=== PATIENT | female | born 2005 | race Caucasian/White ===

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

== ENCOUNTER → 2023-02-20 | Outpatient (CLI) | payer MEDICAID, SELFPAY ==
--- NOTE | 2023-02-20 09:48 | US_ITS ---
STUDY: ABDOMINAL ULTRASOUND - RIGHT UPPER QUADRANT; ELASTOGRAPHY REASON FOR VISIT: Female, 17 years old. Hepatic steatosis. TECHNIQUE: Ultrasound evaluation of the right upper quadrant was performed with real-time and static johnson-scale imaging. Point quantification shear wave elastography was performed ([employer]). TECHNICAL QUALITY: Adequate. COMPARISON: Comparison is made with prior study June 17, 2021. FINDINGS: Liver: The liver is enlarged and measures 20.6 cm. There is increased echogenicity consistent with fatty infiltration. The bile ducts are within normal limits. There is hepatic color flow. The direction of portal flow is hepatopetal. There is no demonstrated mass lesion. Median liver stiffness measured 5.0 kPa. Gallbladder: Normal distended gallbladder. The gallbladder wall measures 1.4 mm. There is a negative sonographic Garcia''s sign. There is no pericholecystic fluid. There are no gallstones. Common Bile Duct (C.B.D.): The common bile duct measures 4.0 mm. Pancreas: There is normal echogenicity of the visualized pancreas. There is no demonstrated pancreatic mass or cyst. Right Kidney: Normal size of the right kidney. The right kidney measures 13.8 cm x 5.8 cm x 3.9 cm. Normal renal cortex. The right cortex measures 1.6 cm. There is no demonstrated renal mass or cyst. There is no right hydronephrosis. US/ABD Limited w/ Elastography IMPRESSION: 1. Liver stiffness measures 5.0 kPa compatible with F0-F1 (Normal to mild liver fibrosis) Metavir score. Electronically Signed: Tay Ochoa MD at 15:26 EDT ,
== END | disposition home or self-care (01) ==
LOC: US 09:46
PROVIDERS: Referring Provider Nurse Practitioner Family; Visit Provider Nurse Practitioner Family
DX: E78.1 Pure hyperglyceridemia (principal); E78.2 Mixed hyperlipidemia; K76.0 Fatty (change of) liver, not elsewhere classified
CPT/HCPCS: 76705; 76981

== ENCOUNTER → 2023-06-07 | Outpatient (CLI) | payer MEDICAID, SELFPAY ==
--- NOTE | 2023-06-07 08:46 | US_ITS ---
STUDY: ABDOMINAL ULTRASOUND REASON FOR EXAM: Female, 17 years old. GENERALIZED ABD PAIN TECHNIQUE: Transabdominal ultrasound was performed with real-time and static johnson scale imaging. TECHNICAL QUALITY: Limited. Examination limited due to a combination of factors including obesity and bowel gas. COMPARISON: CT scan 12/05/2022, ultrasound 02/20/2023 FINDINGS: Liver: The liver measures 23.7 cm. There is increased echogenicity consistent with fatty infiltration. The bile ducts are within normal limits. There is hepatic color flow. The direction of portal flow is hepatopetal. There is no demonstrated mass lesion. Portal vein measurement: Gallbladder: Normal distended gallbladder. The gallbladder wall measures 2 mm. There is a negative sonographic Garcia''s sign. There is no pericholecystic fluid. There are no gallstones. Common Bile Duct (C.B.D.): The common bile duct measures 3 mm. Pancreas: Normal size of the head, body of the pancreas. Tail of the pancreas is suboptimally seen. There is normal echogenicity of the pancreas. There is no demonstrated pancreatic mass or cyst. Spleen: Normal size of the spleen. The spleen measures 12.6 cm. Right Kidney: Normal size of the right kidney. The right kidney measures 12.7 cm. Normal renal cortex. The right cortex measures 1.9 cm. There is no demonstrated renal mass or cyst. There is no right hydronephrosis. Left Kidney: Normal size of the left kidney. The left kidney measures 12.3 cm. Normal renal cortex. The left cortex measures 2.1 cm. There is no demonstrated renal mass or cyst. There is no left hydronephrosis. Aorta: 2.1 cm I.V.C.: The IVC is patent. There is no ascites. US/Abdomen Complete IMPRESSION: Limited as above. No acute abnormality. Fatty liver with hepatomegaly. Electronically Signed: Nael Godinez MD at 21:05 EST ,
--- OUTSIDE RECORDS SUMMARY | 2023-06-07 08:52 | XMS RPT_ITS | CCD ---
Author Name Unknown Address [id number] [place] [address] Organization [facility] Care Team Providers Care Staff Psychiatrist Name Role Phone Ruiz JAIME, Yenifer Sams Primary Care Provider Yenifer Browne MD Primary Care Provider Yenifer Browne MD Primary Care Provider YENIFER BROWNE Primary Care Unavailable ISIDORO MADRIGAL Attending Unavailable ISIDORO MADRIGAL Referring Unavailable PLAYL, YENIFER M Primary Care Unavailable ISIDORO MADRIGAL Attending Unavailable ISIDORO MADRIGAL Referring Unavailable ISIDORO MADRIGAL Admitting Unavailable PLAYL, YENIFER M Primary Care Unavailable ISIDORO MADRIGAL Attending Unavailable PLAYL, YENIFER M Primary Care Unavailable PLAYL, YENIFER M Referring Unavailable ISIDORO MADRIGAL Attending Unavailable ISIDORO MADRIGAL Referring Unavailable PLAYL, YENIFER M Primary Care Unavailable CARY NORIEGA Attending Unavailable Unavailable Primary Care Provider UnavailYenifer Yee MD Primary Care Provider ASA CARTWRIGHT Referring Unavailable SAMY, REINA Attending Unavailable PLAYL, YENIFER M Primary Care Unavailable PLAYL, YENIFER M Attending Unavailable PLAYL, YENIFER M Primary Care Unavailable SAMY, REINA Attending Unavailable ASA CARTWRIGHT Referring Unavailable PLAYL, YENIFER M Primary Care Unavailable PLAYL, YENIFER M Primary Care Unavailable PLAYL, YENIFER M Primary Care Unavailable SAMY, REINA Referring Unavailable PLAYL, YENIFER M Primary Care Unavailable SAMY, REINA Referring Unavailable PLAYL, YENIFER M Primary Care Unavailable SAMY, REINA Attending Unavailable PLAYL, YENIFER M Primary Care Unavailable SAMY, REINA Referring Unavailable PLAYL, YENIFER M Primary Care Unavailable SAMY, REINA Referring Unavailable KEN RICHARDS Referring Unavailable MICHELINE CORREA Attending Unavailable PLAYL, YENIFER M Primary Care Unavailable ASA CARTWRIGHT Attending Unavailable PLAYL, YENIFER M Attending Unavailable PLAYL, YENIFER M Primary Care Unavailable MICHELINE CORREA Attending Unavailable WESTONMICHELINE HYDE Referring Unavailable PLAYL, YENIFER M Primary Care Unavailable MICHELINE CORREA Attending Unavailable MICHELINE CORREA Referring Unavailable PLAYL, YENIFER M Primary Care Unavailable MANISHA JENNINGS MICHELINE Referring Unavailable MICHELINE CORREA Attending Unavailable PLAYL, YENIFER M Primary Care Unavailable MICHELINE CORREA Referring Unavailable WESTONMICHELINE HYDE Attending Unavailable PLAYL, YENIFER M Primary Care Unavailable PLAYL, YENIFER M Primary Care Unavailable Allergies Allergy Classification Reported Allergen(s) Allergy Type Date of Onset Reaction(s) Facility (1 source) mesalamine Drug Allergy 05-30-2023 Rash [facility] Work Phone: Medications Current Medications Medication Drug Class(es) Dates Sig (Normalized) Sig (Original) ibuprofen 800 mg oral tablet (2 sources) Nonsteroidal Anti-inflammatory Drug Start: 08-01-2022 End: 08-08-2022 take 1 tablet by mouth three times daily ibuprofen (MOTRIN) 800 mg tablet Indications: DUB (dysfunctional uterine bleeding) Take 1 tablet by mouth three times daily for 7 days. Until bleeding stops 21 tablet 0 08/01/2022 08/08/2022 Active Completed/Discontinued Medications Medication Drug Class(es) Dates Sig (Normalized) Sig (Original) acetic acid 20 mg/ml otic solution (10 sources) Start: 07-03-2022 acetic acid (VOSOL) 2 % otic solution Indications: Acute otitis externa of right ear, unspecified type Use 4 Drops in the right ear three times daily. 15 mL 0 07/03/2022 Active Problems Active Problems Problem Classification Problem Date Documented Da te Episodic/Chronic Anxiety disorders (20 sources) Anxiety; Translations: [Anxiety disorder, unspecified] Onset: 9 02-22-2019 Chronic Asthma (20 sources) Uncomplicated mild persistent asthma; Translations: [Mild persistent asthma, uncomplicated] Onset: 6 12-06-2015 Chronic Contraceptive and procreative management (3 sources) Patient encounter status; Translations: [Encounter for other general counseling and advice on contraception] Episodic Disorders of lipid metabolism (4 sources) Hypertriglyceridemia; Translations: [Pure hyperglyceridemia] 02-14-2023 Chronic Esophageal disorders (3 sources) Gastroesophageal reflux disease without esophagitis; Translations: [Gastro-esophageal reflux disease without esophagitis] Onset: 3 10-03-2022 Chronic Menstrual disorders (3 sources) Menometrorrhagia; Translations: [Excessive and frequent menstruation with irregular cycle] Onset: 3 Chronic Mood disorders (20 sources) Depressive disorder; Translations: [Depression] Onset: 9 02-22-2019 Chronic Mood disorders (1 source) Mood disorders; Translations: [Depression, unspecified depression type] Onset: 9 Nausea and vomiting (3 sources) Nausea; Translations: [Nausea] Onset: 3 10-03-2022 Episodic Noninfectious gastroenteritis (2 sources) Lymphocytic colitis; Translations: [Other and unspecified noninfectious gastroenteritis and colitis] Onset: 3 01-24-2023 Chronic Other connective tissue disease (1 source) Pelvic floor tension; Translations: [Other specified disorders of muscle] Episodic Other ear and sense organ disorders (1 source) Acute otitis externa of right ear; Translations: [Unspecified acute noninfective otitis externa, right ear] Episodic Other endocrine disorders (1 source) Polycystic ovary; Translations: [Polycystic ovarian syndrome] Chronic Other female genital disorders (1 source) Abnormal uterine and vaginal bleeding, unspecified; Translations: [Abnormal uterine bleeding (AUB)] Onset: 3 Chronic Other female genital disorders (1 source) Vaginal odor; Translations: [Other specified noninflammatory disorders of vagina] Episodic Other gastrointestinal disorders (3 sources) Diarrhea; Translations: [Diarrhea, unspecified] Onset: 3 10-03-2022 Episodic Other liver diseases (3 sources) Steatosis of liver; Translations: [Fatty (change of) liver, not elsewhere classified] 01-24-2023 Chronic Other liver diseases (1 source) Fatty (change of) liver, not elsewhere classified; Translations: [Hepatic steatosis] Onset: 3 Chronic Other lower respiratory disease (1 source) H/O: asthma; Translations: [Personal history of other diseases of the respiratory system] 01-02-2023 Episodic Other skin disorders (1 source) Discoloration of skin; Translations: [Disorder of pigmentation, unspecified] 01-24-2023 Episodic Other skin disorders (1 source) Eruption; Translations: [Rash and other nonspecific skin eruption] 05-30-2023 Episodic Other upper respiratory infections (3 sources) Acute upper respiratory infection; Translations: [Acute upper respiratory infection, unspecified] Episodic Residual codes; unclassified (1 source) Flushing; Translations: [Flushing] Episodic Viral infection (2 sources) Viral disease; Translations: [Viral infection, unspecified] Episodic Past or Other Problems Problem Classification Problem Date Documented Da te Episodic/Chronic Abdominal pain (20 sources) Abdominal pain; Translations: [Unspecified abdominal pain] Onset: 09-03-2019 09-03-2019 Episodic Lymphadenitis (2 sources) Mesenteric lymphadenitis; Translations: [Nonspecific mesenteric lymphadenitis] Onset: 01-24-2023 01-24-2023 Episodic Other connective tissue disease (20 sources) Increased muscle tone; Translations: [Other specified disorders of muscle] Onset: 07-05-2022 Episodic Other inflammatory condition of skin (20 sources) Seborrheic dermatitis; Translations: [Seborrheic dermatitis, unspecified] Onset: 08-02-2019 08-02-2019 Episodic Other lower respiratory disease (2 sources) Respiratory distress; Translations: [Acute respiratory distress] Onset: 12-11-2013 Resolved: 11-30-2020 11-30-2020 Episodic Other skin disorders (20 sources) Acne; Translations: [Acne, unspecified] Onset: 06-30-2018 06-30-2018 Episodic Other skin disorders (20 sources) Disorder of nail; Translations: [Nail disorder, unspecified] Onset: 05-30-2020 05-30-2020 Episodic Pneumonia (except that caused by tuberculosis or sexually transmitted disease) (4 sources) Community acquired pneumonia; Translations: [Pneumonia, unspecified organism] Onset: 12-11-2013 Resolved: 11-16-2019 11-16-2019 Episodic Residual codes; unclassified (1 source) Flushing; Translations: [Hot flashes] Onset: 08-01-2022 Episodic Septicemia (except in labor) (2 sources) Sepsis; Translations: [Sepsis, unspecified organism] Onset: 12-11-2013 Resolved: 11-30-2020 11-30-2020 Episodic Superficial injury; contusion (2 sources) Contusion of trunk; Translations: [Contusion of abdominal wall, initial encounter] Onset: 01-24-2023 01-24-2023 Episodic Results Test Name Value Interpretation Reference Range Facil ity Vital Signs Date Time Vital Sign Value Performing Clinician Facility 05-30-2023 09:57-0500 Body weight 97.25 kg Reina Samy [facility] Work Phone: [facility] 05-30-2023 09:57-0500 Diastolic blood pressure 60 mm[Hg] Reina Samy [facility] Work Phone: [facility] 05-30-2023 09:57-0500 Systolic blood pressure 120 mm[Hg] Reina Samy [facility] Work Phone: [facility] 01-24-2023 09:42-0400 Body weight 94.17 kg Asa Chay [facility] Work Phone: [facility] 01-24-2023 09:42-0400 Diastolic blood pressure 76 mm[Hg] Asa Chay [facility] Work Phone: [facility] 01-24-2023 09:42-0400 Heart rate 89 /min Asa Teranman [facility] Work Phone: [facility] 01-24-2023 09:42-0400 SaO2% (BldA) [Mass fraction] 99 % Asa Chay [facility] Work Phone: [facility] 01-24-2023 09:42-0400 Systolic blood pressure 112 mm[Hg] Asa Chay [facility] Work Phone: [facility] 01-02-2023 10:58-0400 Body temperature 98.6 [degF] Kendell Rico [facility] Work Phone: [facility] 01-02-2023 10:58-0400 Body weight 93.8 kg Kendell Rico [facility] Work Phone: [facility] 01-02-2023 10:58-0400 Diastolic blood pressure 80 mm[Hg] Kendell Rico [facility] Work Phone: [facility] 01-02-2023 10:58-0400 Heart rate 93 /min Kendell Rico [facility] Work Phone: [facility] 01-02-2023 10:58-0400 Respiratory rate 21 /min Kendell Rico [facility] Work Phone: [facility] 01-02-2023 10:58-0400 SaO2% (BldA) [Mass fraction] 98 % Kendell Rico [facility] Work Phone: [facility] 01-02-2023 10:58-0400 Systolic blood pressure 104 mm[Hg] Kendell King [facility] Work Phone: [facility] 11-04-2022 14:30-0400 Body temperature 97.5 [degF] Isidoro Madrigal MD Work Phone: [facility] 11-04-2022 14:30-0400 Heart rate 80 /min Isidoro Madrigal MD Work Phone: [facility] 11-04-2022 14:30-0400 Respiratory rate 17 /min Isidoro Madrigal MD Work Phone: [facility] 11-04-2022 14:30-0400 SaO2% (BldA) [Mass fraction] 96 % Isidoro Madrigal MD Work Phone: [facility] 11-04-2022 14:15-0400 Diastolic blood pressure 54 mm[Hg] Isidoro Madrigal MD Work Phone: [facility] 11-04-2022 14:15-0400 Systolic blood pressure 93 mm[Hg] Isidoro Madrigal MD Work Phone: [facility] 11-04-2022 12:33-0400 Body height 165 cm Isidoro Madrigal MD Work Phone: [facility] 11-04-2022 12:33-0400 Body mass index (BMI) [Ratio] 33.72 kg/m2 Isidoro Madrigal MD Work Phone: [facility] 11-04-2022 12:33-0400 Body weight 91.8 kg Isidoro Madrigal MD Work Phone: [facility] 08-19-2022 10:49-0400 Body weight 91.81 kg Reina Samy [facility] Work Phone: [facility] 08-19-2022 10:49-0400 Diastolic blood pressure 60 mm[Hg] Reina Ray [facility] Work Phone: [facility] 08-19-2022 10:49-0400 Systolic blood pressure 120 mm[Hg] Reina Samy [facility] Work Phone: [facility] 08-01-2022 15:00-0400 Body height 165 cm Yenifer Browne MD Work Phone: [facility] 08-01-2022 15:00-0400 Body temperature 98.01 [degF] Yenifer Browne MD Work Phone: [facility] 08-01-2022 15:00-0400 Body weight 90.81 kg Yenifer Browne MD Work Phone: [facility] 08-01-2022 15:00-0400 Heart rate 96 /min Yenifer Browne MD Work Phone: [facility] 08-01-2022 15:00-0400 Respiratory rate 18 /min Yenifer Browne MD Work Phone: [facility] 07-05-2022 10:00-0500 Diastolic blood pressure 88 mm[Hg] Micheline Weston PT Work Phone: [facility] 07-05-2022 10:00-0500 Systolic blood pressure 132 mm[Hg] Micheline Weston PT Work Phone: [facility] 07-03-2022 15:04-0500 Body temperature 98.91 [degF] María Praisler-Wood [facility] Work Phone: [facility] 07-03-2022 15:04-0500 Body weight 91.54 kg María Praisler-Wood [facility] Work Phone: [facility] 07-03-2022 15:04-0500 Diastolic blood pressure 80 mm[Hg] María Praisler-Wood [facility] Work Phone: [facility] 07-03-2022 15:04-0500 Heart rate 94 /min María Praisler-Wood [facility] Work Phone: [facility] 07-03-2022 15:04-0500 Respiratory rate 21 /min María Praisler-Wood [facility] Work Phone: [facility] 07-03-2022 15:04-0500 SaO2% (BldA) [Mass fraction] 100 % María Praisler-Wood [facility] Work Phone: [facility] 07-03-2022 15:04-0500 Systolic blood pressure 112 mm[Hg] María Praisler-Wood [facility] Work Phone: [facility] 05-14-2022 10:58-0500 Body weight 88.45 kg Ken Richards MD Work Phone: [facility] 05-14-2022 10:58-0500 Diastolic blood pressure 70 mm[Hg] Ken Richards MD Work Phone: [facility] 05-14-2022 10:58-0500 Systolic blood pressure 100 mm[Hg] Ken Richards MD Work Phone: [facility] 05-03-2022 10:17-0500 Body weight 88 kg Ken Richards MD Work Phone: [facility] 05-03-2022 10:17-0500 Diastolic blood pressure 62 mm[Hg] Ken Richards MD Work Phone: [facility] 05-03-2022 10:17-0500 Systolic blood pressure 114 mm[Hg] Ken Richards MD Work Phone: [facility] 12-03-2021 11:06-0400 Body temperature 98.1 [degF] Gautam Tristan [facility] Work Phone: [facility] 12-03-2021 11:06-0400 Body weight 91.08 kg Gautam Hudson [facility] Work Phone: [facility] 12-03-2021 11:06-0400 Diastolic blood pressure 74 mm[Hg] Gautam Pendlerene [facility] Work Phone: [facility] 12-03-2021 11:06-0400 Heart rate 85 /min Gautam Tristan [facility] Work Phone: [facility] 12-03-2021 11:06-0400 Respiratory rate 21 /min Gautammagaly Hudson [facility] Work Phone: [facility] 12-03-2021 11:06-0400 SaO2% (BldA) [Mass fraction] 98 % Gautam Hudson [facility] Work Phone: [facility] 12-03-2021 11:06-0400 Systolic blood pressure 112 mm[Hg] Gautam Hudson [facility] Work Phone: [facility] 10-26-2021 10:46-0400 Body height 165 cm Yenifer Browne MD Work Phone: [facility] 10-26-2021 10:46-0400 Body mass index (BMI) [Percentile] Per age and sex 97.14 % Yenifer Browne MD Work Phone: [facility] 10-26-2021 10:46-0400 Body temperature 97.3 [degF] Yenifer Browne MD Work Phone: [facility] 10-26-2021 10:46-0400 Body weight 91.67 kg Yeniefr Browne MD Work Phone: [facility] 10-26-2021 10:46-0400 Diastolic blood pressure 74 mm[Hg] Yenifer Browne MD Work Phone: [facility] 10-26-2021 10:46-0400 Heart rate 68 /min Yenifer Browne MD Work Phone: [facility] 10-26-2021 10:46-0400 Respiratory rate 18 /min Yenifer Browne MD Work Phone: [facility] 10-26-2021 10:46-0400 Systolic blood pressure 102 mm[Hg] Yenifer Browne MD Work Phone: [facility] 10-09-2021 11:12-0400 Body weight 92.08 kg Ken Richards MD Work Phone: [facility] 10-09-2021 11:12-0400 Diastolic blood pressure 66 mm[Hg] Ken Richards MD Work Phone: [facility] 10-09-2021 11:12-0400 Systolic blood pressure 98 mm[Hg] Ken Richards MD Work Phone: [facility] 09-23-2021 14:57-0400 Body temperature 97.9 [degF] Micheline Athy PA-C Work Phone: [facility] 09-23-2021 14:57-0400 Body weight 91.99 kg Micheline Athy PA-C Work Phone: [facility] 09-23-2021 14:57-0400 Diastolic blood pressure 60 mm[Hg] Micheline Athy PA-C Work Phone: [facility] 09-23-2021 14:57-0400 Heart rate 91 /min Micheline Athy PA-C Work Phone: [facility] 09-23-2021 14:57-0400 Respiratory rate 16 /min Micheline Athy PA-C Work Phone: [facility] 09-23-2021 14:57-0400 SaO2% (BldA) [Mass fraction] 98 % Micheline Athy PA-C Work Phone: [facility] 09-23-2021 14:57-0400 Systolic blood pressure 114 mm[Hg] Micheline Resendiz PA-C Work Phone: [facility] Encounters Encounter Date Encounter Type Care Provider Facility Start: 05-30-2023 End: 05-30-2023 ambulatory REINA SAMY Facility:[facility] Start: 05-30-2023 End: 05-30-2023 Patient encounter procedure Reina Ray [facility] Work Phone: OB/Gynecology Procedures Date Procedure Procedure Detail Performing Clinician Start: 01-02-2023 STREP A MOLECULAR (POC) [facility] Provider Start: 11-04-2022 Urine test visual color cmprsn meths Isidoro Awan DO Work Phone: Start: 10-08-2022 Ct abdomen & pelvis w/contrast material Reina Ray [facility] Work Phone: Start: 10-03-2022 OCCULT BLOOD, QUAL Velasquez rach Madrigal MD Work Phone: Start: 09-27-2022 Us abdominal real ti me w/image documentation Isidoro Madrigal Work Phone: Start: 05-20-2022 Us pelvic nonobstetr ic real-time image complete Ken Richards MD Work Phone: Start: 05-03-2022 Urnls dip stick/tabl et rgnt auto w/o microscopy Ken Richards MD Work Phone: Start: 10-26-2021 PFIZER-BIONTECH COVI D-19 VACCINE, AGE 12+ YR ([facility]) Yenifer Browne MD Work Phone: Start: 10-26-2021 Adult depression scr eening assessment Yenifer Browne MD Work Phone: Start: 11-29-2020 Adult depression scr eening assessment Yenifer Browne MD Work Phone: Plan of Treatment Date Care Activity Detail Author Start: 09-29-2024 Annual PCP Team Chronic Disease Visit Annual PCP Team Chronic Disease Visit [facility] Start: 08-02-2023 ANNUAL PCP TEAM CHRONIC DISEASE VISIT ANNUAL PCP TEAM CHRONIC DISEASE VISIT [facility] Start: 06-13-2023 ANNUAL PCP TEAM CHRONIC DISEASE VISIT ANNUAL PCP TEAM CHRONIC DISEASE VISIT [facility] Start: 05-13-2023 End: 07-13-2023 Lipid 1996 panel - Serum or Plasma LIPID PANEL BASIC Lab Routine Hypertriglyceridemia Hyperlipidemia, mixed Expected: 05/13/2023, Expires: 07/13/2023 [facility] Work Phone: Immunizations Immunization Date Immunization Notes Care Provider Fa cility 10-26-2021 COVID-19 vaccine, ag e 12+ yr ([employer] [facility]) Yenifer Browne MD Work Phone: [facility] 03-16-2020 meningococcal B vacc ine, recombinant, OMV, adjuvanted Yenifer Browne MD Work Phone: [facility] 03-16-2020 meningococcal polysaccharide (groups A, C, Y and W-135) diphtheria toxoid conjugate vaccine (MCV4P) Yenifer Browne MD Work Phone: [facility] 06-30-2018 Human Papillomavirus 9-valent vaccine Yenifer Browne MD Work Phone: [facility] 01-26-2016 Human Papillomavirus 9-valent vaccine Yenifer Browne MD Work Phone: [facility] Work Phone: 12-06-2015 Human Papillomavirus 9-valent vaccine Yenifer Browne MD Work Phone: [facility] Work Phone: 12-06-2015 meningococcal polysaccharide (groups A, C, Y and W-135) diphtheria toxoid conjugate vaccine (MCV4P) Yenifer Browne MD Work Phone: [facility] Work Phone: 12-06-2015 tetanus toxoid, redu dago diphtheria toxoid, and acellular pertussis vaccine, adsorbed Yenifer Browne MD Work Phone: [facility] Work Phone: 12-12-2009 hepatitis A vaccine, unspecified formulation Yenifer Browne MD Work Phone: [facility] 05-18-2009 diphtheria, tetanus toxoids and acellular pertussis vaccine Yenifer Browne MD Work Phone: [facility] Work Phone: 05-18-2009 measles, mumps and rubella virus vaccine Yenifer Browne MD Work Phone: [facility] Work Phone: 05-18-2009 varicella virus vaccine Ji Browne MD Work Phone: [facility] Work Phone: 02-07-2009 influenza virus vacc ine, live, attenuated, for intranasal use Yenifer Browne MD Work Phone: [facility] Work Phone: 02-07-2009 influenza virus vacc ine, unspecified formulation Asa Cartwright APRN.CNP Work Phone: [facility] 11-14-2008 diphtheria, tetanus toxoids and acellular pertussis vaccine Yenifer Browne MD Work Phone: [facility] Work Phone: 11-14-2008 hepatitis B vaccine, pediatric or pediatric/adolescent dosage Yenifer Browne MD Work Phone: [facility] Work Phone: 11-14-2008 measles, mumps and rubella virus vaccine Yenifer Browne MD Work Phone: [facility] Work Phone: 11-14-2008 poliovirus vaccine, inactivated Yenifer Browne MD Work Phone: [facility] Work Phone: 11-14-2008 varicella virus vaccine Ji Browne MD Work Phone: [facility] Work Phone: 2003 diphtheria, tetanus toxoids and acellular pertussis vaccine Yenifer Browne MD Work Phone: [facility] Work Phone: 2003 hepatitis B vaccine, pediatric or pediatric/adolescent dosage Yenifer Browne MD Work Phone: [facility] Work Phone: 2003 pneumococcal conjuga te vaccine, 7 valent Yenifer Browne MD Work Phone: [facility] Work Phone: 2003 poliovirus vaccine, inactivated Yenifer Browne MD Work Phone: [facility] Work Phone: 2003 diphtheria, tetanus toxoids and acellular pertussis vaccine Yenifer Browne MD Work Phone: [facility] Work Phone: 2003 hepatitis B vaccine, pediatric or pediatric/adolescent dosage Yenifer Browne MD Work Phone: [facility] Work Phone: 2003 pneumococcal conjuga te vaccine, 7 valent Yenifer Browne MD Work Phone: [facility] Work Phone: 2003 poliovirus vaccine, inactivated Yenifer Browne MD Work Phone: [facility] Work Phone: Payers Date Payer Category Payer Unknown [id number] 2022 [facility] [id number] 2022-Present [address] [place] [address] [id number] 2022 Unknown [id number] 2008 Medicaid [employer] [id number] 2008-Present [phone] [address] [place] [address] Medicaid [id number] 2008 Medicaid [id number] 2003 Unknown [id number] 2003 Unknown [id number] 2003 Unknown [id number] 2003 Unknown [id number] 2003 Unknown [id number] Social History Date Type Detail Facility Start: 10-09-2021 End: 12-03-2021 Tobacco smoking status NHIS Never smoked tobacco [facility] Start: 03-06-2021 End: 09-23-2021 Alcohol intake Current non-drinker of alcohol (finding) [facility] Start: 11-28-2020 History SDOH Physica l Activity DPW 4 [facility] Start: 11-28-2020 History SDOH Financial 5 [facility] Start: 11-28-2020 End: 10-24-2021 History SDOH Food Worry 1 [facility] Start: 11-28-2020 End: 10-24-2021 History SDOH Transport Med 2 [facility] Start: 12-12-2009 Tobacco Comment mother and mot her's boyfriend smoke inside [facility] Start: 2003 Sex Assigned At Female [facility] Start: 09-11-2021 End: 12-03-2021 Exposure to SARS-CoV-2 (event) Not sure [facility] Start: 10-09-2021 End: 12-03-2021 Tobacco use and exposure Smokeless tobacco non-user [facility] Start: 10-09-2021 End: 08-19-2022 Alcohol intake Current drinker of alcohol (finding) [facility] Start: 10-09-2021 History SDOH Alcohol Comment occasionally [facility] History of tobacco use Passive smoker [facility] Start: 12-25-2021 End: 11-04-2022 Alcohol intake Lifetime non-drinker (finding) [facility] Start: 12-25-2021 End: 09-11-2022 History of Social function [facility] Start: 12-25-2021 End: 09-11-2022 Tobacco use panel [facility] Start: 2003 Sex Assigned At Not on file [facility] Start: 09-11-2022 End: 05-30-2023 Alcohol intake Ex-drinker (finding) [facility] Start: 11-04-2022 Tobacco smoking stat us HIIS Smokes tobacco daily [facility] History of tobacco use Tobacco U se Types Packs/Day Years Used Date Smoking Tobacco: Every Day Vaping Passive Smoke Exposure: Yes Smokeless Tobacco: Never [facility] How hard is it for y ou to pay for the very basics like food, housing, medical care, and heating Not hard at all [facility] (I/We) worried wheyuri er (my/our) food would run out before (I/we) got money to buy more. Never true [facility] In the past 12 month s, was there a time when you were not able to pay the mortgage or rent on time? No [facility] Start: 02-08-2020 Gender identity Identifies as female gender (finding) [facility] Start: 02-08-2020 Sexual orientation Heterosexual (fin alice) [facility] Clinical Notes 12-16-2013 to 05-30-2023 Patient InstructionsReina Haywood APRN.CNP - 05/30/2023 9:54 AM ESTTelephone Encounter - Lyudmila Rizo RN - 03/06/2023 12:20 PM ESTTelephone Encounter - Trish Benjamin - 02/17/2023 3:31 PM EDT Note Date & Type Note Facility 05-30-2023 Note HNO ID: [id number] Author: REINA HAYWOOD APRN.CNP Service: ? Author Type: Nurse Practitioner Type: Progress Notes Filed: 05/30/2023 12:50 Note Text: Predictive Maintenance Technician offered: Patient declines. Edgar Nava is a 17 year old female who presents for problem visit bleeding every 2 weeks, breast lump and rash on stomach HPI: Patient states for the last several months that she has been having 2 periods a month lasting about 5 days each time. She is taking her control pill consistently. She is also concerned about a lump on the left breast that she found it has been approximately 2 months. She also has a unusual rash on her stomach, which she thinks is a reaction to a GI medication that was ordered for her. OB History T0 L0 SAB0 IAB0 Ectopic0 Multiple0 Live Births0 Osteologist History LMP: 05/15/2023 (Exact Date), Having periods Age at Menarche: Age at First : Age at Menopause: Osteologist History Comments: Sexual Activity: Not Currently; Male Contraception: Pill PAST MEDICAL HISTORY Diagnosis Date Menstrual periods, abnormal 06/2015 NEGATIVE HISTORY OF 2013 Normal Color Vision Pneumonia 11/2013 resolved Sepsis (HCC) 12/16/2013 resolved. Admitted for observation [facility] after 2 day stay PAST SURGICAL HISTORY Procedure Laterality Date PAST SURGICAL HISTORY OF teeth removed FAMILY HISTORY Problem Relation Age of Onset Blood Clots Maternal Grandmother genetic clotting disorder - aorta replaced, screens Aneurysm Maternal Grandmother Blood Clots Mother None Other Social History Tobacco Use Smoking status: Never Smokeless tobacco: Never Vaping Use Vaping Use: Some days Substances: CBD Devices: Disposable Substance Use Topics Alcohol use: Not Currently Comment: occasionally Drug use: Yes Frequency: 6.0 times per week Types: Marijuana Current Outpatient Medications Medication Sig Norgestimate-Ethinyl Estradiol (TRI-SPRINTEC) 0.18/0.215/0.25 mg-35 mcg (28) Take 1 tablet by mouth once daily. norethindrone (AYGESTIN) 5 mg tablet Take 1 tablet by mouth once daily. rosuvastatin (CRESTOR) 10 mg tablet Take 1 tablet by mouth daily at bedtime. balsalazide (COLAZAL) 750 mg capsule Take 2,250 mg by mouth. cyproheptadine (PERIACTIN) 4 mg tablet TAKE 4MG IN THE MORNING AND 8MG IN THE EVENING albuterol HFA (PROAIR HFA) 90 mcg/actuation inhaler Inhale 2 Puffs as instructed every 4 hours as needed. triamcinolone (KENALOG) 0.025 % cream Apply to affected area twice daily. hyoscyamine SR (LEVBID) 0.375 mg 12 hr tablet (Patient not taking: Reported on 05/30/2023) No current facility-administered medications for this visit. Allergies As of Date: 05/30/2023 (No Known Allergies) Fully Assessed 05/30/2023 REVIEW OF SYSTEMS Abdomen: No bloating, early satiety, indigestion, or increased flatulence. No abdominal pain, nausea, vomiting, diarrhea, or constipation. Bladder: No dysuria, gross hematuria, urinary frequency, urinary urgency, or incontinence. Breast: Breast lump(s) noted. Expanded ROS: N/A Allergies and current medication updated:Yes EXAM: Wt 214 lb 6.4 oz (97.3kg) LMP 05/15/2023 GENERAL: pleasant, female in no apparent distress HEENT: Normocephalic, atraumatic, mucus membranes moist, and no lesions DERMATOLOGY: dark reddish rash covering the abd +itchy BREAST: soft, symmetric, no dominant mass, normal nipple-areolar complex, no lymphadenopathy, no nipple discharge, and fibrocystic changes CHEST: Normal inspiratory effort ABDOMEN: soft, non-tender, and no masses NEURO: alert and oriented x3,exam grossly non-focal EXTREMITIES: normal ASSESSMENT/PLAN: 1. Irregular menstrual cycle - ICD9: 626.4, ICD10: N92.6 (primary diagnosis) - NORETHINDRONE ACETATE 1.5 MG-ETHINYL ESTRADIOL 30 MCG TABLET If irregular bleeding continue, will order an US and consider an IUD 2. Rash - ICD9: 782.1, ICD10: R21 - METHYLPREDNISOLONE 4 MG TABLETS IN A DOSE PACK Recommended that she contact her GI provider Reina Haywood APRN.CNP Medical Decision Making: Problems: Moderate: New problem with uncertain prognosis Risk: Moderate: Drug management Medical Decision Making Level: 4 - Moderate [facility] 05-30-2023 Instructions Reina Haywood APRN.CNP - 05/30/2023 10:28 AM EST Management of Benign Breast Pain / Fibrocystic Changes Decrease or avoid intake of caffeine, including coffee, teas, sodas, and chocolate. Decrease or avoid nicotine. Wear a support or sports (not underwire) bra. Take qlkb-hzm-adeazsy ibuprofen (Advil/Motrin) or other NSAIDs, such as naproxen (Aleve). Take 3 grams (3000 mg.) of evening primrose oil (available [id number]) in divided doses for 2 months. Take warm showers. Use warm compresses. documented in this encounter [facility] 05-30-2023 History of Present illness Narrative Predictive Maintenance Technician offered: Patient declines. Edgar Nava is a 17 year old female who presents for problem visit bleeding every 2 weeks, breast lump and rash on stomach HPI: Patient states for the last several months that she has been having 2 periods a month lasting about 5 days each time. She is taking her control pill consistently. She is also concerned about a lump on the left breast that she found it has been approximately 2 months. She also has a unusual rash on her stomach, which she thinks is a reaction to a GI medication that was ordered for her. OB History T0 L0 SAB0 IAB0 Ectopic0 Multiple0 Live Births0 Osteologist History LMP: 05/15/2023 (Exact Date), Having periods Age at Menarche: Age at First : Age at Menopause: Osteologist History Comments: Sexual Activity: Not Currently; Male Contraception: Pill PAST MEDICAL HISTORY Diagnosis Date Menstrual periods, abnormal 06/2015 NEGATIVE HISTORY OF 2013 Normal Color Vision Pneumonia 11/2013 resolved Sepsis (HCC) 12/16/2013 resolved. Admitted for observation [facility] after 2 day stay PAST SURGICAL HISTORY Procedure Laterality Date PAST SURGICAL HISTORY OF teeth removed FAMILY HISTORY Problem Relation Age of Onset Blood Clots Maternal Grandmother genetic clotting disorder - aorta replaced, screens Aneurysm Maternal Grandmother Blood Clots Mother None Other Social History Tobacco Use Smoking status: Never Smokeless tobacco: Never Vaping Use Vaping Use: Some days Substances: CBD Devices: Disposable Substance Use Topics Alcohol use: Not Currently Comment: occasionally Drug use: Yes Frequency: 6.0 times per week Types: Marijuana Current Outpatient Medications Medication Sig Norgestimate-Ethinyl Estradiol (TRI-SPRINTEC) 0.18/0.215/0.25 mg-35 mcg (28) Take 1 tablet by mouth once daily. norethindrone (AYGESTIN) 5 mg tablet Take 1 tablet by mouth once daily. rosuvastatin (CRESTOR) 10 mg tablet Take 1 tablet by mouth daily at bedtime. balsalazide (COLAZAL) 750 mg capsule Take 2,250 mg by mouth. cyproheptadine (PERIACTIN) 4 mg tablet TAKE 4MG IN THE MORNING AND 8MG IN THE EVENING albuterol HFA (PROAIR HFA) 90 mcg/actuation inhaler Inhale 2 Puffs as instructed every 4 hours as needed. triamcinolone (KENALOG) 0.025 % cream Apply to affected area twice daily. hyoscyamine SR (LEVBID) 0.375 mg 12 hr tablet (Patient not taking: Reported on 05/30/2023) No current facility-administered medications for this visit. Allergies As of Date: 05/30/2023 (No Known Allergies) Fully Assessed 05/30/2023 REVIEW OF SYSTEMS Abdomen: No bloating, early satiety, indigestion, or increased flatulence. No abdominal pain, nausea, vomiting, diarrhea, or constipation. Bladder: No dysuria, gross hematuria, urinary frequency, urinary urgency, or incontinence. Breast: Breast lump(s) noted. Expanded ROS: N/A Allergies and current medication updated:Yes EXAM: Wt 214 lb 6.4 oz (97.3kg) LMP 05/15/2023 GENERAL: pleasant, female in no apparent distress HEENT: Normocephalic, atraumatic, mucus membranes moist, and no lesions DERMATOLOGY: dark reddish rash covering the abd +itchy BREAST: soft, symmetric, no dominant mass, normal nipple-areolar complex, no lymphadenopathy, no nipple discharge, and fibrocystic changes CHEST: Normal inspiratory effort ABDOMEN: soft, non-tender, and no masses NEURO: alert and oriented x3,exam grossly non-focal EXTREMITIES: normal ASSESSMENT/PLAN: 1. Irregular menstrual cycle - ICD9: 626.4, ICD10: N92.6 (primary diagnosis) - NORETHINDRONE ACETATE 1.5 MG-ETHINYL ESTRADIOL 30 MCG TABLET If irregular bleeding continue, will order an US and consider an IUD 2. Rash - ICD9: 782.1, ICD10: R21 - METHYLPREDNISOLONE 4 MG TABLETS IN A DOSE PACK Recommended that she contact her GI provider Reina Haywood APRN.CCIE Medical Decision Making: Problems: Moderate: New problem with uncertain prognosis Risk: Moderate: Drug management Medical Decision Making Level: 4 - Moderate documented in this encounter [facility] 03-06-2023 Miscellaneous Notes Patient only has 2 control pill left in her pack. Needs a refill until her appointment in April. RX pending. Requested Prescriptions Pending Prescriptions Disp Refills Norgestimate-Ethinyl Estradiol (TRI-SPRINTEC) 0.18/0.215/0.25 mg-35 mcg (28) 84 tablet 0 Sig: Take 1 tablet by mouth once daily. Lyudmila Rizo RN documented in this encounter [facility] 02-26-2023 Miscellaneous Notes Noted, thank you. Asa Cartwright APRN.CCIE If sx continue or worsen consider anti coag labs, BNP and lipase and abdominal US. He doesn't believe this is the case since pt had negative workup in the past. Trish Benjamin MA Attempted to contact [facility] office and was on hold 20 mins. Will need to try again tomorrow. Trish Benjamin MA Checking to see if this has been taken care of. Amee Wren LPN Spoke with nurse at Dr. Madrigal's office and nurse will check with provider and contact office. Trish Benjamin Attempted to contact office and office Is currently closed. Will try again later. Trish Benjamin Please contact patient's outside [facility] GI specialist-Dr. Isidoro Madrigal-I believe he is through [facility]. Patient is having possible bruising to her mid abdomen just to the right of her umbilicus, although has been present for 2.5 months, so don't necessarily suspect bruising vs possible old areas of damage due to chronic heating pad use vs possible medication reaction? She is also having a sharp pain in her abdomen in the same place-in her mid abdomen, just to the right of her umbilicus. Abdominal assessment is negative. I am completing blood work. Does he feel that she should have any imaging or specific blood work? Or should possibly follow up with his office? Asa Cartwright APRN.CNP documented in this encounter [facility] 02-14-2023 Miscellaneous Notes Faxed Trish Benjamin MA Order placed. Asa Cartwright APRN.CNP Cata from [facility] Scheduling calling she received order for Vibration Controlled Transient Elastography and do do this she is also needing an order for an Ultrasound Abdomen limited please. Asking for order to be faxed to [phone]. Pending order, needs diagnosis. Patient is not scheduled for appt as yet. Please advise documented in this encounter [facility] 02-14-2023 Miscellaneous Notes Will continue to check lipid panels routinely every 3 months and plan to increase Crestor each time. Likely add Zetia at next lab check as well. Aas Cartwright APRN.LISA Pt informed, verbalized understanding. Faxed Fibroscan order to [facility]. Trish Benjamin I sent the Crestor in. I would like her to have a fibroscan to look at the extent of her fatty liver. Please assist her to schedule this. Asa Cartwright APRN.LISA Call to pt and notified her of message below. Pt agreeable to starting medication. Pt states she's been told she's had a fatty mass connected to her liver, but nothing further has been done or said or about it. Notified pt that I would route message to Provider to review and advise if further workup with imaging needs completed. Pt understood. Collette Katz Ma Please let Edgar know I received her lab results. Her total cholesterol and triglycerides are very high. If agreeable she needs to start on a medication for this such as Crestor 10mg. Should work on exercise and decreasing fat in her diet. Has she ever been worked up for her fatty liver? I know she does have a hx of significant abdominal concerns. Has she ever had a fibroscan detailing the extent of her fatty liver? We need to recheck her lipid levels again in 3 months. The following approved medication requests have been transmitted electronically. Requested Prescriptions Signed Prescriptions Disp Refills rosuvastatin (CRESTOR) 10 mg tablet 90 tablet 3 Sig: Take 1 tablet by mouth daily at bedtime. Authorizing Provider: ASA CARTWRIGHT APRN.CNP Rebekah Stutzman, APRN.CCIE documented in this encounter [facility] 01-24-2023 Note HNO ID: [id number] Author: Asa Cartwright APRN.CNP Service: ? Author Type: Nurse Practitioner Type: Progress Notes Filed: 01/24/2023 10:44 AM Note Text: Chief Complaint Patient presents with: Derm Problem: Bruising on abdomen x 2 months HPI Edgar Nava is a 17 year old female who presents here today for Above Complaints.. Today: Bruising to abdomen since mid October. Saw ED at that point and was told she was having an allergic reaction. Bruising to right abdomen just to the right of her umbilicus. Has never had this before. Is in the same area that it has been has not changed. She does feel this started after beginning new medication Colazol back in October. When walking will get a stabbing pain in her abdomen in this same area. Will use a heating pad and rest-usually lasts about 20 minutes. Happens about 3x per day. Does sleep with heating pad on stomach nightly, this helps with all her other abdominal issues. Questioning weather area of discoloration/bruising could be a burn from her heating pad, although does not recall any acute burn or injury to this area. Past medical history, appointments, medications, allergies reviewed. Previous Medical History PAST MEDICAL HISTORY Diagnosis Date Menstrual periods, abnormal 06/2015 NEGATIVE HISTORY OF 2013 Normal Color Vision Pneumonia 11/2013 resolved Sepsis (HCC) 12/16/2013 resolved. Admitted for observation [facility] after 2 day stay Previous Surgical History PAST SURGICAL HISTORY Procedure Laterality Date PAST SURGICAL HISTORY OF teeth removed Family History FAMILY HISTORY Problem Relation Age of Onset Blood Clots Maternal Grandmother genetic clotting disorder - aorta replaced, screens Aneurysm Maternal Grandmother Blood Clots Mother None Other Patient Allergies ALLERGIES No Known Allergies Current Medications Current Outpatient Medications on File Prior to Visit Medication Sig balsalazide (COLAZAL) 750 mg capsule Take 2,250 mg by mouth. hyoscyamine SR (LEVBID) 0.375 mg 12 hr tablet cyproheptadine (PERIACTIN) 4 mg tablet TAKE 4MG IN THE MORNING AND 8MG IN THE EVENING albuterol HFA (PROAIR HFA) 90 mcg/actuation inhaler Inhale 2 Puffs as instructed every 4 hours as needed. triamcinolone (KENALOG) 0.025 % cream Apply to affected area twice daily. mesalamine DR (DELZICOL) 400 mg capsule TAKE 3 CAPSULES BY MOUTH EVERY 12 HOURS (Patient not taking: Reported on 01/24/2023) baclofen 5 mg tablet Take 1 tablet by mouth four times daily as needed. (Patient not taking: Reported on 01/02/2023) Norgestimate-Ethinyl Estradiol (TRI-SPRINTEC) 0.18/0.215/0.25 mg-35 mcg (28) Take 1 tablet by mouth once daily. No current facility-administered medications on file prior to visit. Social History Social History Tobacco Use Smoking status: Never Smokeless tobacco: Never Vaping Use Vaping Use: Some days Substances: CBD Devices: Disposable Substance Use Topics Alcohol use: Not Currently Comment: occasionally Drug use: Yes Frequency: 6.0 times per week Types: Marijuana Review of Symptoms REVIEW OF SYSTEMS See HPI, otherwise negative EXAM: BP 112/76 (BP Site: Left Arm, BP Position: Sitting, BP Cuff Size: Regular Adult) Pulse 89 Wt 94.2 kg (207 lb 9.6 oz) LMP 08/24/2022 (Exact Date) SpO2 99% BMI 34.59 kg/m? General Appearance: Well appearing, alert, in no acute distress, well-hydrated, well nourished.. Skin: multiple stretch biggs to abdomen, mild bruise-like discoloration to right mid abdomen, is not painful. Lungs: Lungs clear to auscultation. No wheezing, rhonchi, rales.. Heart: RRR without murmur, gallop, or rubs. No ectopy. Abdomen: Normal abdominal exam, Abdomen soft, non-tender. Bowel sounds normal. No masses, organomegaly, See skin assessment. Health Maintenance List Pneumococcal Vaccine(1 - PCV) due on 2009 Meningococcal B Vaccine: Consider Based On Risk(2 of 2 - Risk Bexsero 2-dose series) due on 04/13/2020 Spirometry Never done Hepatitis C Screening Never done HIV Screening Never done Asthma Control Test due on 11/29/2021 Covid-19 Vaccine(4 - Pfizer series) due on 12/21/2021 Asthma Action Plan due on 07/21/2022 Influenza Vaccine(1) due on 12/27/2022 GC (Gonorrhea) Screening (18-24) due on 05/03/2023 Chlamydia Screening (18-24) due on 05/03/2023 Annual PCP Team Chronic Disease Visit due on 08/02/2023 Hepatitis B Vaccine Completed HPV Vaccine Completed Meningococcal Conjugate Vaccine Completed DTaP,Tdap,Td Vaccine Discontinued Data reviewed Previous records, office notes ASSESSMENT/PLAN: 1. Contusion of abdominal wall, initial encounter - ICD9: 922.2, ICD10: S30.1XXA (primary diagnosis) Discoloration to right mid abdomen, unsure of etiology, possibly bruising vs other possible discoloration or r/t chronic heating pad use in this area vs reaction to new medication Colazol. Will do lab work today. Consider imaging-will contact pat (more content not included)... [facility] 01-24-2023 History of Present illness Narrative Chief Complaint Patient presents with: Derm Problem: Bruising on abdomen x 2 months HPI Edgar Nava is a 17 year old female who presents here today for Above Complaints.. Today: Bruising to abdomen since mid October. Saw ED at that point and was told she was having an allergic reaction. Bruising to right abdomen just to the right of her umbilicus. Has never had this before. Is in the same area that it has been has not changed. She does feel this started after beginning new medication Colazol back in October. When walking will get a stabbing pain in her abdomen in this same area. Will use a heating pad and rest-usually lasts about 20 minutes. Happens about 3x per day. Does sleep with heating pad on stomach nightly, this helps with all her other abdominal issues. Questioning weather area of discoloration/bruising could be a burn from her heating pad, although does not recall any acute burn or injury to this area. Past medical history, appointments, medications, allergies reviewed. Previous Medical History PAST MEDICAL HISTORY Diagnosis Date Menstrual periods, abnormal 06/2015 NEGATIVE HISTORY OF 2013 Normal Color Vision Pneumonia 11/2013 resolved Sepsis (HCC) 12/16/2013 resolved. Admitted for observation [facility] after 2 day stay Previous Surgical History PAST SURGICAL HISTORY Procedure Laterality Date PAST SURGICAL HISTORY OF teeth removed Family History FAMILY HISTORY Problem Relation Age of Onset Blood Clots Maternal Grandmother genetic clotting disorder - aorta replaced, screens Aneurysm Maternal Grandmother Blood Clots Mother None Other Patient Allergies ALLERGIES No Known Allergies Current Medications Current Outpatient Medications on File Prior to Visit Medication Sig balsalazide (COLAZAL) 750 mg capsule Take 2,250 mg by mouth. hyoscyamine SR (LEVBID) 0.375 mg 12 hr tablet cyproheptadine (PERIACTIN) 4 mg tablet TAKE 4MG IN THE MORNING AND 8MG IN THE EVENING albuterol HFA (PROAIR HFA) 90 mcg/actuation inhaler Inhale 2 Puffs as instructed every 4 hours as needed. triamcinolone (KENALOG) 0.025 % cream Apply to affected area twice daily. mesalamine DR (DELZICOL) 400 mg capsule TAKE 3 CAPSULES BY MOUTH EVERY 12 HOURS (Patient not taking: Reported on 01/24/2023) baclofen 5 mg tablet Take 1 tablet by mouth four times daily as needed. (Patient not taking: Reported on 01/02/2023) Norgestimate-Ethinyl Estradiol (TRI-SPRINTEC) 0.18/0.215/0.25 mg-35 mcg (28) Take 1 tablet by mouth once daily. No current facility-administered medications on file prior to visit. Social History Social History Tobacco Use Smoking status: Never Smokeless tobacco: Never Vaping Use Vaping Use: Some days Substances: CBD Devices: Disposable Substance Use Topics Alcohol use: Not Currently Comment: occasionally Drug use: Yes Frequency: 6.0 times per week Types: Marijuana Review of Symptoms REVIEW OF SYSTEMS See HPI, otherwise negative EXAM: BP 112/76 (BP Site: Left Arm, BP Position: Sitting, BP Cuff Size: Regular Adult) Pulse 89 Wt 94.2 kg (207 lb 9.6 oz) LMP 08/24/2022 (Exact Date) SpO2 99% BMI 34.59 kg/m General Appearance: Well appearing, alert, in no acute distress, well-hydrated, well nourished.. Skin: multiple stretch biggs to abdomen, mild bruise-like discoloration to right mid abdomen, is not painful. Lungs: Lungs clear to auscultation. No wheezing, rhonchi, rales.. Heart: RRR without murmur, gallop, or rubs. No ectopy. Abdomen: Normal abdominal exam, Abdomen soft, non-tender. Bowel sounds normal. No masses, organomegaly, See skin assessment. Health Maintenance List Pneumococcal Vaccine(1 - PCV) due on 2009 Meningococcal B Vaccine: Consider Based On Risk(2 of 2 - Risk Bexsero 2-dose series) due on 04/13/2020 Spirometry Never done Hepatitis C Screening Never done HIV Screening Never done Asthma Control Test due on 11/29/2021 Covid-19 Vaccine(4 - Pfizer series) due on 12/21/2021 Asthma Action Plan due on 07/21/2022 Influenza Vaccine(1) due on 12/27/2022 GC (Gonorrhea) Screening (18-24) due on 05/03/2023 Chlamydia Screening (18-24) due on 05/03/2023 Annual PCP Team Chronic Disease Visit due on 08/02/2023 Hepatitis B Vaccine Completed HPV Vaccine Completed Meningococcal Conjugate Vaccine Completed DTaP,Tdap,Td Vaccine Discontinued Data reviewed Previous records, office notes ASSESSMENT/PLAN: 1. Contusion of abdominal wall, initial encounter - ICD9: 922.2, ICD10: S30.1XXA (primary diagnosis) Discoloration to right mid abdomen, unsure of etiology, possibly bruising vs other possible discoloration or r/t chronic heating pad use in this area vs reaction to new medication Colazol. Will do lab work today. Consider imaging-will contact patient's outside GI specialist-Dr. Isidoro Madrigal-for recommendations. - CBC + DIFF - COMP METABOLIC PANEL - C-REACTIVE PROTEIN (CRP) - SED RATE WESTERGREN - LIPID PANEL, NONFASTING - AMYLASE BLD - IRON + TIBC - FERRITIN BLD 2. Discoloration of skin - ICD9: 709.00, ICD10: L81.9 Discoloration to right mid abdomen, unsure of etiology, possibly bruising vs other possible discoloration or r/t chronic heating pad use in this area vs reaction to new medication Colazol. Will do lab work today. Consider imaging-will contact patient's outside GI specialist-Dr. Isidoro Madrigal-for recommendations. - CBC + DIFF - COMP METABOLIC PANEL - C-REACTIVE PROTEIN (CRP) - SED RATE WESTERGREN - LIPID PANEL, NONFASTING - AMYLASE BLD - IRON + TIBC - FERRITIN BLD 3. Generalized abdominal pain - ICD9: 789.07, ICD10: R10.84 Discoloration to right mid abdomen, unsure of etiology, possibly bruising vs other possible discoloration or r/t chronic heating pad use in this area vs reaction to new medication Colazol. Will do lab work today. Consider imaging-will contact patient's outside GI specialist-Dr. Isidoro Madrigal-for recommendations. - CBC + DIFF - COMP METABOLIC PANEL - C-REACTIVE PROTEIN (CRP) - SED RATE WESTERGREN - LIPID PANEL, NONFASTING - AMYLASE BLD - IRON + TIBC - FERRITIN BLD 4. 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 Will do lab work today. Consider imaging-will contact patient's outside GI specialist-Dr. Isidoro Madrigal-for recommendations. - CBC + DIFF - COMP METABOLIC PANEL - C-REACTIVE PROTEIN (CRP) - SED RATE WESTERGREN - LIPID PANEL, NONFASTING - AMYLASE BLD - IRON + TIBC - FERRITIN BLD 5. Hepatic steatosis - ICD9: 571.8, ICD10: K76.0 Discoloration to right mid abdomen, unsure of etiology, possibly bruising vs other possible discoloration or r/t chronic heating pad use in this area vs reaction to new medication Colazol. Will do lab work today. Consider imaging-will contact patient's outside GI specialist-Dr. Isidoro Madrigal-for recommendations. - CBC + DIFF - COMP METABOLIC PANEL - C-REACTIVE PROTEIN (CRP) - SED RATE WESTERGREN - LIPID PANEL, NONFASTING - AMYLASE BLD - IRON + TIBC - FERRITIN BLD 6. Lymphocytic colitis - ICD9: 558.9, ICD10: K52.832 Discoloration to right mid abdomen, unsure of etiology, possibly bruising vs other possible discoloration or r/t chronic heating pad use in this area vs reaction to new medication Colazol. Will do lab work today. Consider imaging-will contact patient's outside GI specialist-Dr. Isidoro Madrigal-for recommendations. - CBC + DIFF - COMP METABOLIC PANEL - C-REACTIVE PROTEIN (CRP) - SED RATE WESTERGREN - LIPID PANEL, NONFASTING - AMYLASE BLD - IRON + TIBC - FERRITIN BLD Asa Cartwright APRN.CCIE documented in this encounter [facility] 01-02-2023 Note HNO ID: [id number] Author: Kendell Rico APRN.CNP Service: ? Author Type: Nurse Practitioner Type: Progress Notes Filed: 01/02/2023 11:52 AM Note Text: Subjective HPI HPI Edgar Nava is a 17 year old female who presents today for CC of cough, st, fever, congestion. This started 1 day ago. Has tried otc medication for relief. Symptoms are worsened by nothing. Risk factors sick exposures at home. Denies possibility of being . nonsmoker. .Patient presents with: Cough: Sore throat, CONNELL, runny nose, fever x 1 day PAST MEDICAL HISTORY Diagnosis Date Menstrual periods, abnormal 06/2015 NEGATIVE HISTORY OF 2013 Normal Color Vision Pneumonia 11/2013 resolved Sepsis (HCC) 12/16/2013 resolved. Admitted for observation [facility] after 2 day stay PAST SURGICAL HISTORY Procedure Laterality Date PAST SURGICAL HISTORY OF teeth removed ALLERGIES Patient has no known allergies. MEDICATIONS hyoscyamine SR (LEVBID) 0.375 mg 12 hr tablet cyproheptadine (PERIACTIN) 4 mg tablet TAKE 4MG IN THE MORNING AND 8MG IN THE EVENING mesalamine DR (DELZICOL) 400 mg capsule TAKE 3 CAPSULES BY MOUTH EVERY 12 HOURS Norgestimate-Ethinyl Estradiol (TRI-SPRINTEC) 0.18/0.215/0.25 mg-35 mcg (28) Take 1 tablet by mouth once daily. triamcinolone (KENALOG) 0.025 % cream Apply to affected area twice daily. albuterol HFA (PROAIR HFA) 90 mcg/actuation inhaler Inhale 2 Puffs as instructed every 4 hours as needed. baclofen 5 mg tablet Take 1 tablet by mouth four times daily as needed. (Patient not taking: Reported on 01/02/2023) FAMILY HISTORY Problem Relation Age of Onset Blood Clots Maternal Grandmother genetic clotting disorder - aorta replaced, screens Aneurysm Maternal Grandmother Blood Clots Mother None Other Social History Tobacco Use Smoking status: Never Smokeless tobacco: Never Vaping Use Vaping Use: Some days Substances: CBD Devices: Disposable Substance Use Topics Alcohol use: Not Currently Comment: occasionally Drug use: Yes Frequency: 6.0 times per week Types: Marijuana ROS Objective Blood pressure 104/80, pulse 93, temperature 37 ?C (98.6 ?F), resp. rate 21, weight 93.8 kg (206 lb 12.8 oz), last menstrual period 08/24/2022, SpO2 98 %. Physical Exam Constitutional: General: She is not in acute distress. Appearance: She is not toxic-appearing or diaphoretic. HENT: Head: Normocephalic and atraumatic. Nose: Nose normal. Mouth/Throat: Lips: Collins. Mouth: Mucous membranes are moist. Pharynx: Oropharynx is clear. Uvula midline. Cardiovascular: Rate and Rhythm: Normal rate and regular rhythm. Heart sounds: Normal heart sounds, S1 normal and S2 normal. Pulmonary: Effort: Pulmonary effort is normal. Breath sounds: Normal breath sounds. Lymphadenopathy: Cervical: No cervical adenopathy. Right cervical: No superficial cervical adenopathy. Left cervical: No superficial cervical adenopathy. Neurological: Mental Status: She is alert and oriented to person, place, and time. Gait: Gait is intact. ASSESSMENT/PLAN: 1. URI, acute - ICD9: 465.9, ICD10: J06.9 (primary diagnosis) - Discussed viral etiology and rationale for treatment. - Symptomatic treatment with prn analgesia - Supportive care with fluids and rest - Follow up in 3-5 days if symptoms persist or sooner if worsening of symptoms - COVID AND INFLUENZA A/B NAAT, ROUTINE - ALBUTEROL SULFATE HFA 90 MCG/ACTUATION AEROSOL INHALER 2. Sore throat - ICD9: 462, ICD10: J02.9 Neg, viral - ALERE STREP A TEST (AG) 3. History of asthma - ICD9: V12.69, ICD10: Z87.09 Inhaler refilled. - ALBUTEROL SULFATE HFA 90 MCG/ACTUATION AEROSOL INHALER Kendell Rico APRN.[facility] 01-02-2023 History of Present illness Narrative Subjective HPI HPI Edgar Nava is a 17 year old female who presents today for CC of cough, st, fever, congestion. This started 1 day ago. Has tried otc medication for relief. Symptoms are worsened by nothing. Risk factors sick exposures at home. Denies possibility of being . nonsmoker. .Patient presents with: Cough: Sore throat, CONNELL, runny nose, fever x 1 day PAST MEDICAL HISTORY Diagnosis Date Menstrual periods, abnormal 06/2015 NEGATIVE HISTORY OF 2013 Normal Color Vision Pneumonia 11/2013 resolved Sepsis (HCC) 12/16/2013 resolved. Admitted for observation [facility] after 2 day stay PAST SURGICAL HISTORY Procedure Laterality Date PAST SURGICAL HISTORY OF teeth removed ALLERGIES Patient has no known allergies. MEDICATIONS hyoscyamine SR (LEVBID) 0.375 mg 12 hr tablet cyproheptadine (PERIACTIN) 4 mg tablet TAKE 4MG IN THE MORNING AND 8MG IN THE EVENING mesalamine DR (DELZICOL) 400 mg capsule TAKE 3 CAPSULES BY MOUTH EVERY 12 HOURS Norgestimate-Ethinyl Estradiol (TRI-SPRINTEC) 0.18/0.215/0.25 mg-35 mcg (28) Take 1 tablet by mouth once daily. triamcinolone (KENALOG) 0.025 % cream Apply to affected area twice daily. albuterol HFA (PROAIR HFA) 90 mcg/actuation inhaler Inhale 2 Puffs as instructed every 4 hours as needed. baclofen 5 mg tablet Take 1 tablet by mouth four times daily as needed. (Patient not taking: Reported on 01/02/2023) FAMILY HISTORY Problem Relation Age of Onset Blood Clots Maternal Grandmother genetic clotting disorder - aorta replaced, screens Aneurysm Maternal Grandmother Blood Clots Mother None Other Social History Tobacco Use Smoking status: Never Smokeless tobacco: Never Vaping Use Vaping Use: Some days Substances: CBD Devices: Disposable Substance Use Topics Alcohol use: Not Currently Comment: occasionally Drug use: Yes Frequency: 6.0 times per week Types: Marijuana ROS Objective Blood pressure 104/80, pulse 93, temperature 37 C (98.6 F), resp. rate 21, weight 93.8 kg (206 lb 12.8 oz), last menstrual period 08/24/2022, SpO2 98 %. Physical Exam Constitutional: General: She is not in acute distress. Appearance: She is not toxic-appearing or diaphoretic. HENT: Head: Normocephalic and atraumatic. Nose: Nose normal. Mouth/Throat: Lips: Collins. Mouth: Mucous membranes are moist. Pharynx: Oropharynx is clear. Uvula midline. Cardiovascular: Rate and Rhythm: Normal rate and regular rhythm. Heart sounds: Normal heart sounds, S1 normal and S2 normal. Pulmonary: Effort: Pulmonary effort is normal. Breath sounds: Normal breath sounds. Lymphadenopathy: Cervical: No cervical adenopathy. Right cervical: No superficial cervical adenopathy. Left cervical: No superficial cervical adenopathy. Neurological: Mental Status: She is alert and oriented to person, place, and time. Gait: Gait is intact. ASSESSMENT/PLAN: 1. URI, acute - ICD9: 465.9, ICD10: J06.9 (primary diagnosis) - Discussed viral etiology and rationale for treatment. - Symptomatic treatment with prn analgesia - Supportive care with fluids and rest - Follow up in 3-5 days if symptoms persist or sooner if worsening of symptoms - COVID & INFLUENZA A/B NAAT, ROUTINE - ALBUTEROL SULFATE HFA 90 MCG/ACTUATION AEROSOL INHALER 2. Sore throat - ICD9: 462, ICD10: J02.9 Neg, viral - ALERE STREP A TEST (AG) 3. History of asthma - ICD9: V12.69, ICD10: Z87.09 Inhaler refilled. - ALBUTEROL SULFATE HFA 90 MCG/ACTUATION AEROSOL INHALER Kendell Rico APRN.CCIE documented in this encounter [facility] 11-04-2022 Procedure note Patient NameEDGAR NAVA Date of Birth2005 Record [id number] Date/Time of Procedure11/04/2022 , 1:38:00 PM Referring Physician EndoscopDebbie CHAUDHRY PROCEDURE PERFORMED Colonoscopy INDICATIONS FOR EXAMINATION Generalized abdominal pain [R10.84] Nausea without vomiting [R11.0] Gastroesophageal reflux disease without esophagitis [K21.9] Diarrhea, unspecified type [R19.7] R10.84 Generalized abdominal pain R11.0 Nausea K21.9 Gastro-esophageal reflux disease without esophagitis R19.7 Diarrhea, unspecified INSTRUMENTS CF [id number] PROCEDURE TECHNIQUE A physical exam was performed. Informed consent was obtained from the patient's parents/guardian after explaining all the risks (perforation, bleeding, infection and adverse effects to the medicine), benefits and alternatives to the procedure which the patient's parents appeared to understand and so stated. The patient was connected to the monitoring devices and placed in the supine position. Continuous oxygen was provided and IV medicine administered thru an indwelling cannula. After adequate general anesthesia was achieved, a digital exam was performed and the colonoscope introduced in to the rectum and advanced under direct visualization to the terminal ileum The ascending colon, descending colon, transverse colon and terminal ileum were identified by visual landmarks. The scope was subsequently removed slowly while carefully examining the color, texture, anatomy, and integrity of the mucosa on the way out. In the rectum, the scope was retroflexed to evaluate for internal hemorrhoids and anorectal pathology. The patient was subsequently transferred to the recovery area in satisfactory condition. Bowel Prep Quality: Excellent ESTIMATED BLOOD LOSS2 ML FINDINGS Mild Irritation in the terminal ileum. Biopsy obtained, results pending. Complete hemostasis achieved. Normal in the mid ascending colon, mid descending colon and rectum. Biopsy obtained, results pending. Complete hemostasis achieved. ENDOSCOPIC DIAGNOSIS Mild Irritation in Terminal Ileum (Favors Prep Effect) Normal Colon from Cecum to Rectum RECOMMENDATIONS Pending biopsy. [facility] 11-04-2022 Miscellaneous Notes Patient NameEDGAR NAVA Date of Birth2005 Record [id number] Date/Time of Procedure11/04/2022 , 1:38:00 PM Referring Physician Bubba CHAUDHRY PROCEDURE PERFORMED Colonoscopy INDICATIONS FOR EXAMINATION Generalized abdominal pain [R10.84] Nausea without vomiting [R11.0] Gastroesophageal reflux disease without esophagitis [K21.9] Diarrhea, unspecified type [R19.7] R10.84 Generalized abdominal pain R11.0 Nausea K21.9 Gastro-esophageal reflux disease without esophagitis R19.7 Diarrhea, unspecified INSTRUMENTS CF [id number] PROCEDURE TECHNIQUE A physical exam was performed. Informed consent was obtained from the patient's parents/guardian after explaining all the risks (perforation, bleeding, infection and adverse effects to the medicine), benefits and alternatives to the procedure which the patient's parents appeared to understand and so stated. The patient was connected to the monitoring devices and placed in the supine position. Continuous oxygen was provided and IV medicine administered thru an indwelling cannula. After adequate general anesthesia was achieved, a digital exam was performed and the colonoscope introduced in to the rectum and advanced under direct visualization to the terminal ileum The ascending colon, descending colon, transverse colon and terminal ileum were identified by visual landmarks. The scope was subsequently removed slowly while carefully examining the color, texture, anatomy, and integrity of the mucosa on the way out. In the rectum, the scope was retroflexed to evaluate for internal hemorrhoids and anorectal pathology. The patient was subsequently transferred to the recovery area in satisfactory condition. Bowel Prep Quality: Excellent ESTIMATED BLOOD LOSS2 ML FINDINGS Mild Irritation in the terminal ileum. Biopsy obtained, results pending. Complete hemostasis achieved. Normal in the mid ascending colon, mid descending colon and rectum. Biopsy obtained, results pending. Complete hemostasis achieved. ENDOSCOPIC DIAGNOSIS Mild Irritation in Terminal Ileum (Favors Prep Effect) Normal Colon from Cecum to Rectum RECOMMENDATIONS Pending biopsy. Patient NameEDGAR NAVA Date of Birth2005 Record [id number] Date/Time of Procedure11/04/2022 , 1:38:00 PM Referring Physician EndoscopDebbie CHAUDHRY PROCEDURE PERFORMED EGD INDICATIONS FOR EXAMINATION Generalized abdominal pain [R10.84] Nausea without vomiting [R11.0] Gastroesophageal reflux disease without esophagitis [K21.9] Diarrhea, unspecified type [R19.7] R10.84 Generalized abdominal pain R11.0 Nausea K21.9 Gastro-esophageal reflux disease without esophagitis R19.7 Diarrhea, unspecified INSTRUMENTS GIF H190 PROCEDURE TECHNIQUE A physical exam was performed. Informed consent was obtained from the patient's parents/guardian after explaining all the risks (perforation, bleeding, infection and adverse effects to the medicine), benefits and alternatives to the procedure which the patient's parents appeared to understand and so stated. The patient was connected to the monitoring devices and placed in the supine position. Continuous oxygen was provided and IV medicine administered through a indwelling cannula. After adequate general anesthesia was achieved, the patient was intubated and the scope advanced under direct visualization to the third part of duodenum The esophagus, stomach and duodenum were identified by visual landmarks. The scope was subsequently removed slowly while carefully examining the color, texture, anatomy, and integrity of the mucosa on the way out. The patient was subsequently transferred to the recovery area in satisfactory condition. ESTIMATED BLOOD LOSS2 ML FINDINGS Normal in the distal esophagus. Biopsy obtained, results pending. Complete hemostasis achieved. Normal in the antrum and fundus. Biopsy obtained, results pending. Complete hemostasis achieved. Normal in the third part of duodenum. Biopsy obtained, results pending. Complete hemostasis achieved. ENDOSCOPIC DIAGNOSIS Normal RECOMMENDATIONS Pending biopsy. Problem: Adverse Surgical Event, Risk of Goal: Absence of injury Outcome: Ongoing documented in this encounter [facility] 11-04-2022 Procedure note Patient NameEDGAR NAVA Date of Birth2005 Record [id number] Date/Time of Procedure11/04/2022 , 1:38:00 PM Referring Physician EndoscopDebbie CHAUDHRY PROCEDURE PERFORMED EGD INDICATIONS FOR EXAMINATION Generalized abdominal pain [R10.84] Nausea without vomiting [R11.0] Gastroesophageal reflux disease without esophagitis [K21.9] Diarrhea, unspecified type [R19.7] R10.84 Generalized abdominal pain R11.0 Nausea K21.9 Gastro-esophageal reflux disease without esophagitis R19.7 Diarrhea, unspecified INSTRUMENTS GIF H190 PROCEDURE TECHNIQUE A physical exam was performed. Informed consent was obtained from the patient's parents/guardian after explaining all the risks (perforation, bleeding, infection and adverse effects to the medicine), benefits and alternatives to the procedure which the patient's parents appeared to understand and so stated. The patient was connected to the monitoring devices and placed in the supine position. Continuous oxygen was provided and IV medicine administered through a indwelling cannula. After adequate general anesthesia was achieved, the patient was intubated and the scope advanced under direct visualization to the third part of duodenum The esophagus, stomach and duodenum were identified by visual landmarks. The scope was subsequently removed slowly while carefully examining the color, texture, anatomy, and integrity of the mucosa on the way out. The patient was subsequently transferred to the recovery area in satisfactory condition. ESTIMATED BLOOD LOSS2 ML FINDINGS Normal in the distal esophagus. Biopsy obtained, results pending. Complete hemostasis achieved. Normal in the antrum and fundus. Biopsy obtained, results pending. Complete hemostasis achieved. Normal in the third part of duodenum. Biopsy obtained, results pending. Complete hemostasis achieved. ENDOSCOPIC DIAGNOSIS Normal RECOMMENDATIONS Pending biopsy. [facility] 11-04-2022 Plan of care note Problem: Adverse Surgical Event, Risk of Goal: Absence of injury Outcome: Ongoing [facility] 11-04-2022 Attending History and physical note H&P reviewed, patient examined, no changes have occured since H&P completed.. Isidoro Madrigal MD P - [phone] 11/04/2022 Source Note - Denise Katz APRN-CNP - 10/31/2022 2:00 PM EDT PRE-OP CONSULTATION This is a telemedicine video visit requested by the patient/guardian that was performed with the patient's location at home and the provider's location at office. DATE OF SERVICE: 10/31/2022 EDGE ROLLER PROVIDER: YRN Monson SURGICAL DIAGNOSIS: generalized abdominal pain, nausea without vomiting, gastroesophageal reflux disease without esophagitis, diarrhea Proposed surgery date: 11/04/2022 ([facility]) Proposed surgical procedure: endoscopy (upper and colonoscopy) with biopsies Advice/opinion was requested by Isidoro Madrigal MD for pre-surgical consultation. CHIEF COMPLAINT: diarrhea HISTORY OF PRESENT ILLNESS: Edgar Nava is a 17 y.o. female with a PMH significant for generalized abdominal pain, nausea without vomiting, gastroesophageal reflux disease without esophagitis, diarrhea, Gilbert's disease, asthma, anxiety, and depression who is being consulted via telehealth/video for perioperative evaluation. Edgar reports symptoms of abdominal pain, diarrhea, weight gain, and nausea. Her abdominal pain is intermittent and is often sharp and stabbing. It often stops her from doing daily activities about 3-4 times a day. It is worse before bowel movements. Edgar has diarrhea about 5-6 times per day. She denies blood in her stool. Patient was evaluated by GI and it was determined that she would benefit from an upper endoscopy and colonoscopy. Edgar has been otherwise at her baseline state of health and has not had any recent illnesses. The history is provided by the patient and mother and a chart review for evaluation for surgical risk factors. Past Medical History: Diagnosis Date Gastroesophageal reflux disease without esophagitis Gilbert syndrome Uncomplicated asthma Past Surgical History: Procedure Laterality Date DENTAL SURGERY removal of teeth at age 2 or 3 ESOPHAGOSCOPY N/A 12/04/2020 ENDOSCOPY (UPPER AND COLONOSCOPY) with biopsies performed by Angelika Vincent MD at [facility] [place] Past hospitalizations: no DRUG/FOOD ALLERGIES: No Known Allergies MEDICATIONS: Outpatient Encounter Medications as of 10/31/2022 Medication Sig Dispense Refill Loperamide HCl (IMMODIUM AD) 2 MG TABS tablet Take 1 Tablet (2 mg) by mouth 3 times daily as needed for Diarrhea 90 Tablet 2 norgestimate-ethinyl estradiol (ORTHO TRI-CYCLEN) 0.18/0.215/0.25 MG-35 MCG tablet Take 1 Tablet by mouth daily hyoscyamine (LEVBID) 0.375 MG CR tablet Take 1 Tablet (0.375 mg) by mouth every 12 hours 60 Tablet 2 cyproheptadine (PERIACTIN) 4 MG tablet 4mg in AM, and 8mg in PM 90 Tablet 5 montelukast (SINGULAIR) 10 MG tablet Take 1 Tablet (10 mg) by mouth daily ketoconazole (NIZORAL) 2 % SHAM shampoo Shampoo twice weekly (at least 3 days between each shampoo) for 8 weeks. Then use as needed. albuterol (PROAIR HFA;VENTOLIN HFA;PROVENTIL HFA) 108 (90 BASE) MCG/ACT inhaler Inhale 2 Puffs into the lungs every 4 hours as needed for Wheezing or Shortness of Breath. 18 g 0 [DISCONTINUED] Eluxadoline (VIBERZI) 75 MG TABS Take 1 Tablet (75 mg) by mouth every 12 hours for 90 days 60 Tablet 2 [DISCONTINUED] sertraline (ZOLOFT) 50 MG tablet Take 100 mg by mouth daily [DISCONTINUED] norethindrone (PENNY) 0.35 MG Take 0.35 mg by mouth daily (Patient not taking: No sig reported) No facility-administered encounter medications on file as of 10/31/2022. ANESTHESIA HISTORY: Difficulty with anesthesia? No Family history of difficulty with anesthesia? no Signs/symptoms of KD? no BLEEDING HISTORY: History of bleeding issues in patient? no Bleeding problems in family? Yes- mom and grandma have h/o blood clots History of anemia in patient? No Sickle Cell issues in patient or family? N/A REVIEW OF SYSTEMS: Comprehensive review of systems: History obtained from Mother, chart review, and the patient. Psychological ROS: positive for - anxiety and depression Respiratory ROS: positive for - h/o asthma- albuterol prn, ACT score 25 Gastrointestinal ROS: positive for - abdominal pain, GERD, Gilbert's disease-monitoring LFTs, diarrhea, and nausea Urinary ROS: positive for - difficulty initiating stream Osteologist ROS: positive for - dysmenorrhea A complete ROS was performed. Pertinent positives have been documented above or are in the HPI. All other systems were negative. Recent Illnesses? no History of COVID-19? no HISTORY: Noncontributory No history on file. 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 Smoking/Alcohol/Drug Use or Exposure: passive Family History Problem Relation Age of Onset Bleeding Problem Mother h/o blood clots Diabetes Mellitus II Father No known problems Sister No known problems Sister No known problems Brother Bleeding Problem Maternal Grandmother h/o blood clots Clotting Disorder Maternal Grandmother Cancer Paternal Grandmother Diabetes Paternal Grandmother Anesth Problems Neg Hx Blood Disorders Neg Hx Celiac Disease Neg Hx Colon Cancer Neg Hx Colon Polyps Neg Hx Constipation Neg Hx Crohn's Disease Neg Hx Eosinophilic Esophagitis Neg Hx Gallbladder Disease Neg Hx Gastroesophageal reflux Neg Hx Irritable Bowel Syndrome Neg Hx Kidney Disease Neg Hx Liver Disease Neg Hx Pancreatic Disease Neg Hx Stomach Ulcer(s) Neg Hx Thyroid Disease Neg Hx Ulcerative Colitis Neg Hx VITAL SIGNS: Temp and weight obtained via home equipment/family during this Telehealth visit. Completed set of vital signs to be completed on the day of this procedure. Vitals: Unable to obtain temperature today Ht Readings from Last 1 Encounters: 12/25/21 164.8 cm (60 %, Z= 0.25)* * Growth percentiles are based on CDC (Girls, 2-20 Years) data. Wt Readings from Last 1 Encounters: 10/31/22 93 kg (98 %, Z= 2.02)* * Growth percentiles are based on CDC (Girls, 2-20 Years) data. No height and weight on file for this encounter. SpO2 Readings from Last 3 Encounters: 12/04/20 98% 12/13/13 94% PHYSICAL EXAM: Focused provider physical to be completed on the day of this procedure General: Patient appears alert, oriented appropriately for age and in no acute distress Head: atraumatic Neuro: alert, oriented appropriately for age Eyes: sclera and conjunctiva clear Ears: external ears normal Nose: nares patent without discharge Dentition: intact, chipped tooth to right upper and bottom molars Throat: oropharynx is clear without tonsillar inflammation or exudate Neck: there is full range of motion Chest: respirations appear even and unlabored Cardiac: deferred Abdomen: deferred Back: deferred : deferred Skin: appropriate for race, no cyanosis Lymphatic: deferred Musculoskeletal: moves all extremities DIAGNOSTIC STUDIES REVIEWED: The following lab results have been ordered/reviewed. HCG ordered for day of procedure Calcium Date Value Ref Range Status 09/20/2022 10.1 7.6 - 11.0 mg/dL Final Carbon Dioxide Date Value Ref Range Status 09/20/2022 18.3 (L) 22.0 - 29.0 mmol/L Final Chloride Date Value Ref Range Status 09/20/2022 101 96 - 108 mmol/L Final Creatinine Date Value Ref Range Status 09/20/2022 0.61 0.50 - 1.00 mg/dL Final Glucose Date Value Ref Range Status 09/20/2022 97 70 - 99 mg/dL Final Comment: Criteria for Diagnosis of Diabetes: Fasting Specimen (no caloric intake for at least 8 hours): <100 mg/dL Normal 100-125 mg/dL Increased risk for Diabetes >125 mg/dL Diagnostic for Diabetes Random Glucose (any time of day without regard to last meal): > or = 200 mg/dL plus Classic Symptoms of Diabetes Potassium Date Value Ref Range Status 09/20/2022 4.1 3.3 - 5.1 mmol/L Final Sodium Date Value Ref Range Status 09/20/2022 134 133 - 145 mmol/L Final BUN Date Value Ref Range Status 09/20/2022 9 4 - 19 mg/dL Final RBC Date Value Ref Range Status 09/20/2022 4.65 4.00 - 4.90 10E12/L Final RDW Date Value Ref Range Status 09/20/2022 12.3 0.0 - 14.4 % Final WBC Date Value Ref Range Status 09/20/2022 7.8 4.5 - 11.0 10E9/L Final Hematocrit Date Value Ref Range Status 09/20/2022 42.2 36.0 - 44.0 % Final Hemoglobin Date Value Ref Range Status 09/20/2022 14.5 12.0 - 15.0 g/dl Final MCH Date Value Ref Range Status 09/20/2022 31.2 26.0 - 34.0 pg Final MCHC Date Value Ref Range Status 09/20/2022 34.4 31.0 - 37.0 % Final MCV Date Value Ref Range Status 09/20/2022 90.8 80.0 - 100.0 fl Final MPV Date Value Ref Range Status 09/20/2022 11.1 fl Final Comment: MPV is platelet range and age dependent Hemoglobin Date Value Ref Range Status 09/20/2022 14.5 12.0 - 15.0 g/dl Final No results found for: APTT , INR No results found for: TSH , W9BFEXP , V8EAGFO , THYROIDAB No results found for: HCGUR No results found for: HCGSERUM ASSESSMENT: Patient Active Problem List Diagnosis Generalized abdominal pain Acne Anxiety Depression Mild persistent asthma without complication Nausea without vomiting Gastroesophageal reflux disease without esophagitis Diarrhea Edgar Nava is a 17 y.o. female with generalized abdominal pain, nausea without vomiting, gastroesophageal reflux disease without esophagitis, diarrhea, Gilbert's disease, asthma, anxiety, and depression. Based on this evaluation for surgical risk factors and review of necessary clinical studies (if indicated), she has no other past medical history or past surgical history that would impact this procedure. [facility] physical examination limited due to telehealth via video encounter. Pertinent and/or unperformed aspects of physical exam due to these limitations will be performed and/or addended by attending provider/anesthesia on day of surgery. Family instructed to contact the surgery center/PSH if any changes occur since this evaluation. PLAN: Surgery as scheduled Patient/family education Hemodynamic monitoring Respiratory monitoring Neurological monitoring Neurovascular monitoring -No contraindication to surgery based off history and physical exam. -HCG ordered for day of procedure -Instructed family to use prescribed inhalers as directed prior to surgery (use night prior and bring inhaler the morning of surgery; taking one dose prior to procedure) as prophylactic therapy prior to undergoing anesthesia. (ACT score 25) -Educated family that if patient develops viral illness, fever, requires unexpected breathing treatments or antibiotics or any other changes prior to surgery to notify the surgery center. -Educated family to stop all herbals/multivitamins/ibuprofen products at least 2 weeks prior to surgery. -Remove all piercings and nail zimbabwean/acrylics on the day of surgery Care coordination: Yenifer Browne MD(PCP) OTHER FINDINGS OR COMMENTS: Cc: MD Denise Tello APRN-CNP 10/31/2022 2:21 PM This visit was conducted via telehealth. I spent 40 minutes with patient/family and performing chart review for this consult. Counseling and/or coordination of care was greater than 50% of the total time spent on the encounter. [facility] 11-04-2022 History and physical note H&P reviewed, patient examined, no changes have occured since H&P completed.. Isidoro Madrigal MD p - [phone] 11/04/2022 Source Note - Denise Katz APRN-CNP - 10/31/2022 2:00 PM EDT PRE-OP CONSULTATION This is a telemedicine video visit requested by the patient/guardian that was performed with the patient's location at home and the provider's location at office. DATE OF SERVICE: 10/31/2022 EDGE ROLLER PROVIDER: YRN Monson SURGICAL DIAGNOSIS: generalized abdominal pain, nausea without vomiting, gastroesophageal reflux disease without esophagitis, diarrhea Proposed surgery date: 11/04/2022 [place] [place] Proposed surgical procedure: endoscopy (upper and colonoscopy) with biopsies Advice/opinion was requested by Isidoro Madrigal MD for pre-surgical consultation. CHIEF COMPLAINT: diarrhea HISTORY OF PRESENT ILLNESS: Edgar Nava is a 17 y.o. female with a PMH significant for generalized abdominal pain, nausea without vomiting, gastroesophageal reflux disease without esophagitis, diarrhea, Gilbert's disease, asthma, anxiety, and depression who is being consulted via telehealth/video for perioperative evaluation. Edgar reports symptoms of abdominal pain, diarrhea, weight gain, and nausea. Her abdominal pain is intermittent and is often sharp and stabbing. It often stops her from doing daily activities about 3-4 times a day. It is worse before bowel movements. Edgar has diarrhea about 5-6 times per day. She denies blood in her stool. Patient was evaluated by GI and it was determined that she would benefit from an upper endoscopy and colonoscopy. Edgar has been otherwise at her baseline state of health and has not had any recent illnesses. The history is provided by the patient and mother and a chart review for evaluation for surgical risk factors. Past Medical History: Diagnosis Date Gastroesophageal reflux disease without esophagitis Gilbert syndrome Uncomplicated asthma Past Surgical History: Procedure Laterality Date DENTAL SURGERY removal of teeth at age 2 or 3 ESOPHAGOSCOPY N/A 12/04/2020 ENDOSCOPY (UPPER AND COLONOSCOPY) with biopsies performed by Angelika Vincent MD at [facility] [place] Past hospitalizations: no DRUG/FOOD ALLERGIES: No Known Allergies MEDICATIONS: Outpatient Encounter Medications as of 10/31/2022 Medication Sig Dispense Refill Loperamide HCl (IMMODIUM AD) 2 MG TABS tablet Take 1 Tablet (2 mg) by mouth 3 times daily as needed for Diarrhea 90 Tablet 2 norgestimate-ethinyl estradiol (ORTHO TRI-CYCLEN) 0.18/0.215/0.25 MG-35 MCG tablet Take 1 Tablet by mouth daily hyoscyamine (LEVBID) 0.375 MG CR tablet Take 1 Tablet (0.375 mg) by mouth every 12 hours 60 Tablet 2 cyproheptadine (PERIACTIN) 4 MG tablet 4mg in AM, and 8mg in PM 90 Tablet 5 montelukast (SINGULAIR) 10 MG tablet Take 1 Tablet (10 mg) by mouth daily ketoconazole (NIZORAL) 2 % SHAM shampoo Shampoo twice weekly (at least 3 days between each shampoo) for 8 weeks. Then use as needed. albuterol (PROAIR HFA;VENTOLIN HFA;PROVENTIL HFA) 108 (90 BASE) MCG/ACT inhaler Inhale 2 Puffs into the lungs every 4 hours as needed for Wheezing or Shortness of Breath. 18 g 0 [DISCONTINUED] Eluxadoline (VIBERZI) 75 MG TABS Take 1 Tablet (75 mg) by mouth every 12 hours for 90 days 60 Tablet 2 [DISCONTINUED] sertraline (ZOLOFT) 50 MG tablet Take 100 mg by mouth daily [DISCONTINUED] norethindrone (PENNY) 0.35 MG Take 0.35 mg by mouth daily (Patient not taking: No sig reported) No facility-administered encounter medications on file as of 10/31/2022. ANESTHESIA HISTORY: Difficulty with anesthesia? No Family history of difficulty with anesthesia? no Signs/symptoms of KD? no BLEEDING HISTORY: History of bleeding issues in patient? no Bleeding problems in family? Yes- mom and grandma have h/o blood clots History of anemia in patient? No Sickle Cell issues in patient or family? N/A REVIEW OF SYSTEMS: Comprehensive review of systems: History obtained from Mother, chart review, and the patient. Psychological ROS: positive for - anxiety and depression Respiratory ROS: positive for - h/o asthma- albuterol prn, ACT score 25 Gastrointestinal ROS: positive for - abdominal pain, GERD, Gilbert's disease-monitoring LFTs, diarrhea, and nausea Urinary ROS: positive for - difficulty initiating stream Osteologist ROS: positive for - dysmenorrhea A complete ROS was performed. Pertinent positives have been documented above or are in the HPI. All other systems were negative. Recent Illnesses? no History of COVID-19? no HISTORY: Noncontributory No history on file. 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 Smoking/Alcohol/Drug Use or Exposure: passive Family History Problem Relation Age of Onset Bleeding Problem Mother h/o blood clots Diabetes Mellitus II Father No known problems Sister No known problems Sister No known problems Brother Bleeding Problem Maternal Grandmother h/o blood clots Clotting Disorder Maternal Grandmother Cancer Paternal Grandmother Diabetes Paternal Grandmother Anesth Problems Neg Hx Blood Disorders Neg Hx Celiac Disease Neg Hx Colon Cancer Neg Hx Colon Polyps Neg Hx Constipation Neg Hx Crohn's Disease Neg Hx Eosinophilic Esophagitis Neg Hx Gallbladder Disease Neg Hx Gastroesophageal reflux Neg Hx Irritable Bowel Syndrome Neg Hx Kidney Disease Neg Hx Liver Disease Neg Hx Pancreatic Disease Neg Hx Stomach Ulcer(s) Neg Hx Thyroid Disease Neg Hx Ulcerative Colitis Neg Hx VITAL SIGNS: Temp and weight obtained via home equipment/family during this Telehealth visit. Completed set of vital signs to be completed on the day of this procedure. Vitals: Unable to obtain temperature today Ht Readings from Last 1 Encounters: 12/25/21 164.8 cm (60 %, Z= 0.25)* * Growth percentiles are based on CDC (Girls, 2-20 Years) data. Wt Readings from Last 1 Encounters: 10/31/22 93 kg (98 %, Z= 2.02)* * Growth percentiles are based on CDC (Girls, 2-20 Years) data. No height and weight on file for this encounter. SpO2 Readings from Last 3 Encounters: 12/04/20 98% 12/13/13 94% PHYSICAL EXAM: Focused provider physical to be completed on the day of this procedure General: Patient appears alert, oriented appropriately for age and in no acute distress Head: atraumatic Neuro: alert, oriented appropriately for age Eyes: sclera and conjunctiva clear Ears: external ears normal Nose: nares patent without discharge Dentition: intact, chipped tooth to right upper and bottom molars Throat: oropharynx is clear without tonsillar inflammation or exudate Neck: there is full range of motion Chest: respirations appear even and unlabored Cardiac: deferred Abdomen: deferred Back: deferred : deferred Skin: appropriate for race, no cyanosis Lymphatic: deferred Musculoskeletal: moves all extremities DIAGNOSTIC STUDIES REVIEWED: The following lab results have been ordered/reviewed. HCG ordered for day of procedure Calcium Date Value Ref Range Status 09/20/2022 10.1 7.6 - 11.0 mg/dL Final Carbon Dioxide Date Value Ref Range Status 09/20/2022 18.3 (L) 22.0 - 29.0 mmol/L Final Chloride Date Value Ref Range Status 09/20/2022 101 96 - 108 mmol/L Final Creatinine Date Value Ref Range Status 09/20/2022 0.61 0.50 - 1.00 mg/dL Final Glucose Date Value Ref Range Status 09/20/2022 97 70 - 99 mg/dL Final Comment: Criteria for Diagnosis of Diabetes: Fasting Specimen (no caloric intake for at least 8 hours): <100 mg/dL Normal 100-125 mg/dL Increased risk for Diabetes >125 mg/dL Diagnostic for Diabetes Random Glucose (any time of day without regard to last meal): > or = 200 mg/dL plus Classic Symptoms of Diabetes Potassium Date Value Ref Range Status 09/20/2022 4.1 3.3 - 5.1 mmol/L Final Sodium Date Value Ref Range Status 09/20/2022 134 133 - 145 mmol/L Final BUN Date Value Ref Range Status 09/20/2022 9 4 - 19 mg/dL Final RBC Date Value Ref Range Status 09/20/2022 4.65 4.00 - 4.90 10E12/L Final RDW Date Value Ref Range Status 09/20/2022 12.3 0.0 - 14.4 % Final WBC Date Value Ref Range Status 09/20/2022 7.8 4.5 - 11.0 10E9/L Final Hematocrit Date Value Ref Range Status 09/20/2022 42.2 36.0 - 44.0 % Final Hemoglobin Date Value Ref Range Status 09/20/2022 14.5 12.0 - 15.0 g/dl Final MCH Date Value Ref Range Status 09/20/2022 31.2 26.0 - 34.0 pg Final MCHC Date Value Ref Range Status 09/20/2022 34.4 31.0 - 37.0 % Final MCV Date Value Ref Range Status 09/20/2022 90.8 80.0 - 100.0 fl Final MPV Date Value Ref Range Status 09/20/2022 11.1 fl Final Comment: MPV is platelet range and age dependent Hemoglobin Date Value Ref Range Status 09/20/2022 14.5 12.0 - 15.0 g/dl Final No results found for: APTT , INR No results found for: TSH , E6IGOHH , G6LSGET , THYROIDAB No results found for: HCGUR No results found for: HCGSERUM ASSESSMENT: Patient Active Problem List Diagnosis Generalized abdominal pain Acne Anxiety Depression Mild persistent asthma without complication Nausea without vomiting Gastroesophageal reflux disease without esophagitis Diarrhea Edgar Nava is a 17 y.o. female with generalized abdominal pain, nausea without vomiting, gastroesophageal reflux disease without esophagitis, diarrhea, Gilbert's disease, asthma, anxiety, and depression. Based on this evaluation for surgical risk factors and review of necessary clinical studies (if indicated), she has no other past medical history or past surgical history that would impact this procedure. [facility] physical examination limited due to telehealth via video encounter. Pertinent and/or unperformed aspects of physical exam due to these limitations will be performed and/or addended by attending provider/anesthesia on day of surgery. Family instructed to contact the surgery center/PS if any changes occur since this evaluation. PLAN: Surgery as scheduled Patient/family education Hemodynamic monitoring Respiratory monitoring Neurological monitoring Neurovascular monitoring -No contraindication to surgery based off history and physical exam. -HCG ordered for day of procedure -Instructed family to use prescribed inhalers as directed prior to surgery (use night prior and bring inhaler the morning of surgery; taking one dose prior to procedure) as prophylactic therapy prior to undergoing anesthesia. (ACT score 25) -Educated family that if patient develops viral illness, fever, requires unexpected breathing treatments or antibiotics or any other changes prior to surgery to notify the surgery center. -Educated family to stop all herbals/multivitamins/ibuprofen products at least 2 weeks prior to surgery. -Remove all piercings and nail zimbabwean/acrylics on the day of surgery Care coordination: Yenifer Browne MD(PCP) OTHER FINDINGS OR COMMENTS: Cc: MD Denise Tello APRN-CNP 10/31/2022 2:21 PM This visit was conducted via telehealth. I spent 40 minutes with patient/family and performing chart review for this consult. Counseling and/or coordination of care was greater than 50% of the total time spent on the encounter. documented in this encounter [facility] 10-31-2022 Note PRE-OP CONSULTATION This is a telemedicine video visit requested by the patient/guardian that was performed with the patient's location at home and the provider's location at office. DATE OF SERVICE: 10/31/2022 EDGE ROLLER PROVIDER: YRN Monson SURGICAL DIAGNOSIS: generalized abdominal pain, nausea without vomiting, gastroesophageal reflux disease without esophagitis, diarrhea Proposed surgery date: 11/04/2022 ([facility]) Proposed surgical procedure: endoscopy (upper and colonoscopy) with biopsies Advice/opinion was requested by Isidoro Madrigal MD for pre-surgical consultation. CHIEF COMPLAINT: diarrhea HISTORY OF PRESENT ILLNESS: Edgar Nava is a 17 y.o. female with a PMH significant for generalized abdominal pain, nausea without vomiting, gastroesophageal reflux disease without esophagitis, diarrhea, Gilbert's disease, asthma, anxiety, and depression who is being consulted via telehealth/video for perioperative evaluation. Edgar reports symptoms of abdominal pain, diarrhea, weight gain, and nausea. Her abdominal pain is intermittent and is often sharp and stabbing. It often stops her from doing daily activities about 3-4 times a day. It is worse before bowel movements. Edgar has diarrhea about 5-6 times per day. She denies blood in her stool. Patient was evaluated by GI and it was determined that she would benefit from an upper endoscopy and colonoscopy. Edgar has been otherwise at her baseline state of health and has not had any recent illnesses. The history is provided by the patient and mother and a chart review for evaluation for surgical risk factors. Past Medical History: Diagnosis Date Gastroesophageal reflux disease without esophagitis Gilbert syndrome Uncomplicated asthma Past Surgical History: Procedure Laterality Date DENTAL SURGERY removal of teeth at age 2 or 3 ESOPHAGOSCOPY N/A 12/04/2020 ENDOSCOPY (UPPER AND COLONOSCOPY) with biopsies performed by Angelika Vincent MD at [facility] OR Past hospitalizations: no DRUG/FOOD ALLERGIES: No Known Allergies MEDICATIONS: Outpatient Encounter Medications as of 10/31/2022 Medication Sig Dispense Refill Loperamide HCl (IMMODIUM AD) 2 MG TABS tablet Take 1 Tablet (2 mg) by mouth 3 times daily as needed for Diarrhea 90 Tablet 2 norgestimate-ethinyl estradiol (ORTHO TRI-CYCLEN) 0.18/0.215/0.25 MG-35 MCG tablet Take 1 Tablet by mouth daily hyoscyamine (LEVBID) 0.375 MG CR tablet Take 1 Tablet (0.375 mg) by mouth every 12 hours 60 Tablet 2 cyproheptadine (PERIACTIN) 4 MG tablet 4mg in AM, and 8mg in PM 90 Tablet 5 montelukast (SINGULAIR) 10 MG tablet Take 1 Tablet (10 mg) by mouth daily ketoconazole (NIZORAL) 2 % SHAM shampoo Shampoo twice weekly (at least 3 days between each shampoo) for 8 weeks. Then use as needed. albuterol (PROAIR HFA;VENTOLIN HFA;PROVENTIL HFA) 108 (90 BASE) MCG/ACT inhaler Inhale 2 Puffs into the lungs every 4 hours as needed for Wheezing or Shortness of Breath. 18 g 0 [DISCONTINUED] Eluxadoline (VIBERZI) 75 MG TABS Take 1 Tablet (75 mg) by mouth every 12 hours for 90 days 60 Tablet 2 [DISCONTINUED] sertraline (ZOLOFT) 50 MG tablet Take 100 mg by mouth daily [DISCONTINUED] norethindrone (PENNY) 0.35 MG Take 0.35 mg by mouth daily (Patient not taking: No sig reported) No facility-administered encounter medications on file as of 10/31/2022. ANESTHESIA HISTORY: Difficulty with anesthesia? No Family history of difficulty with anesthesia? no Signs/symptoms of KD? no BLEEDING HISTORY: History of bleeding issues in patient? no Bleeding problems in family? Yes- mom and grandma have h/o blood clots History of anemia in patient? No Sickle Cell issues in patient or family? N/A REVIEW OF SYSTEMS: Comprehensive review of systems: History obtained from Mother, chart review, and the patient. Psychological ROS: positive for - anxiety and depression Respiratory ROS: positive for - h/o asthma- albuterol prn, ACT score 25 Gastrointestinal ROS: positive for - abdominal pain, GERD, Gilbert's disease-monitoring LFTs, diarrhea, and nausea Urinary ROS: positive for - difficulty initiating stream Osteologist ROS: positive for - dysmenorrhea A complete ROS was performed. Pertinent positives have been documented above or are in the HPI. All other systems were negative. Recent Illnesses? no History of COVID-19? no HISTORY: Noncontributory No history on file. 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 [facility] 10-25-2022 Miscellaneous Notes Please see pt's [email or web address] message and advise. Brenda Mckeon LPN documented in this encounter [facility] 10-08-2022 Note HNO ID: [id number] Author: RT Teodora(R) Service: ? Author Type: Academic Affairs Specialist Type: Progress Notes Filed: 10/08/2022 3:37 PM Note Text: Radiology Service Progress Note DATE OF SERVICE: October 08, 2022 TIME: 3:37 PM PATIENT IDENTITY VERIFICATION COMPLETED USING TWO (2) STANDARD IDENTIFIERS: Name and Date of confirmed by patient verbally. FALL SCREENING: Has the patient had 2 falls in the last year or 1 fall with injury or currently using an Ambulatory Assistive Device (Walker, Cane, Wheelchair, Crutches, etc.)? No PATIENT GENDER DATA: Female. status: : No status: NO. PATIENT RELEVANT IMPLANT DATA REVIEWED: Yes ALLERGIES: Reviewed and unchanged CONTRAST ALLERGY: NO. EXAM: CT -CONTRAST INDUCED NEPHROPATHY RISK FACTORS: Not applicable CREATININE: Creatinine Date Value Ref Range Status 09/11/2022 0.73 0.58 - 0.96 mg/dL Final 03/08/2020 Test sent to [facility]. 0.58 - 0.96 mg/dL Final Comment: Account Credited HIDE Estimated Glomerular Filtration Rate Date Value Ref Range Status 09/11/2022 122 >=60 mL/min/1.73m? Final Comment: Estimated Glomerular Filtration Rate (eGFR) is calculated using the 2020 CKD-EPI creatinine equation. This equation utilizes serum creatinine, sex, and age as parameters. The creatinine assay has traceable calibration to isotope dilution-mass spectrometry. Refer to KDIGO guidelines for clinical interpretation. In patients with unstable renal function, e.g. those with acute kidney injury, the eGFR may not accurately reflect actual GFR. eGFR- Date Value Ref Range Status 03/08/2020 Test sent to [facility]. Final Comment: Account Credited HIDE Tiny RESULTS: POC done: Yes, See Lab Tab October 08, 2022 TREATMENT: N/A PERIPHERAL IV DATA: Ambulatory: A peripheral IV was started in the Right forearm with a Angio cath: 22 gauge. RADIOLOGY DEPARTMENT: CT; Exam(s) Completed: Abdomen/Pelvis SIGNATURE: RT Teresa(R) PATIENT NAME: Edgar Nava DATE: October 08, 2022 TIME: 3:37 PM [facility] 10-08-2022 History of Present illness Narrative Radiology Service Progress Note DATE OF SERVICE: October 08, 2022 TIME: 3:37 PM PATIENT IDENTITY VERIFICATION COMPLETED USING TWO (2) STANDARD IDENTIFIERS: Name and Date of confirmed by patient verbally. FALL SCREENING: Has the patient had 2 falls in the last year or 1 fall with injury or currently using an Ambulatory Assistive Device (Walker, Cane, Wheelchair, Crutches, etc.)? No PATIENT GENDER DATA: Female. status: : No status: NO. PATIENT RELEVANT IMPLANT DATA REVIEWED: Yes ALLERGIES: Reviewed and unchanged CONTRAST ALLERGY: NO. EXAM: CT -CONTRAST INDUCED NEPHROPATHY RISK FACTORS: Not applicable CREATININE: Creatinine Date Value Ref Range Status 09/11/2022 0.73 0.58 - 0.96 mg/dL Final 03/08/2020 Test sent to [facility]. 0.58 - 0.96 mg/dL Final Comment: Account Credited HIDE Estimated Glomerular Filtration Rate Date Value Ref Range Status 09/11/2022 122 >=60 mL/min/1.73m Final Comment: Estimated Glomerular Filtration Rate (eGFR) is calculated using the 2020 CKD-EPI creatinine equation. This equation utilizes serum creatinine, sex, and age as parameters. The creatinine assay has traceable calibration to isotope dilution-mass spectrometry. Refer to KDIGO guidelines for clinical interpretation. In patients with unstable renal function, e.g. those with acute kidney injury, the eGFR may not accurately reflect actual GFR. eGFR- Date Value Ref Range Status 03/08/2020 Test sent to [facility]. Final Comment: Account Credited GALE Tiny RESULTS: POC done: Yes, See Lab Tab October 08, 2022 TREATMENT: N/A PERIPHERAL IV DATA: Ambulatory: A peripheral IV was started in the Right forearm with a Angio cath: 22 gauge. RADIOLOGY DEPARTMENT: CT; Exam(s) Completed: Abdomen/Pelvis SIGNATURE: RT Teresa(R) PATIENT NAME: Edgar Nava DATE: October 08, 2022 TIME: 3:37 PM documented in this encounter [facility] 09-27-2022 Note HNO ID: [id number] Author: SAI Bose) Service: ? Author Type: Technologist Type: Progress Notes Filed: 09/27/2022 9:04 AM Note Text: Radiology Service Progress Note PATIENT NAME: Edgar Nava DATE OF SERVICE: September 27, 2022 TIME: 9:03 AM PATIENT IDENTITY VERIFICATION COMPLETED USING TWO (2) IDENTIFIERS: Name and Date of confirmed by patient verbally. FALL SCREENING: Has the patient had 2 falls in the last year or 1 fall with injury or currently using an Ambulatory Assistive Device (Walker, Cane, Wheelchair, Crutches, etc.)? No PATIENT GENDER DATA: Female. status: : No status: NO. PATIENT RELEVANT IMPLANT DATA REVIEWED: Not Applicable RADIOLOGY DEPARTMENT: General X-ray: Exam(s) Completed: Abdomen X-Ray: Abdomen, SUPINE PERIPHERAL IV DATA: Not applicable SIGNED BY: RT Juice(R) September 27, 2022 9:03 AM [facility] 09-27-2022 Note HNO ID: [id number] Author: Wendy Edge RDMS Service: ? Author Type: Solid Propellant Processor Type: Progress Notes Filed: 09/27/2022 8:36 AM Note Text: Radiology Service Progress Note PATIENT NAME: Edgar Nava DATE OF SERVICE: September 27, 2022 TIME: 8:36 AM PATIENT IDENTITY VERIFICATION COMPLETED USING TWO (2) IDENTIFIERS: Name and Date of confirmed by patient verbally. FALL SCREENING: Has the patient had 2 falls in the last year or 1 fall with injury or currently using an Ambulatory Assistive Device (Walker, Cane, Wheelchair, Crutches, etc.)? No PATIENT GENDER DATA: Female. status: : No status: NO. PATIENT RELEVANT IMPLANT DATA REVIEWED: Not Applicable RADIOLOGY DEPARTMENT: Ultrasound PERIPHERAL IV DATA: Not applicable SIGNED BY: Wendy Edge RDMS RVT September 27, 2022 8:36 AM [facility] 09-27-2022 History of Present illness Narrative Radiology Service Progress Note PATIENT NAME: Edgar Nava DATE OF SERVICE: September 27, 2022 TIME: 8:36 AM PATIENT IDENTITY VERIFICATION COMPLETED USING TWO (2) IDENTIFIERS: Name and Date of confirmed by patient verbally. FALL SCREENING: Has the patient had 2 falls in the last year or 1 fall with injury or currently using an Ambulatory Assistive Device (Walker, Cane, Wheelchair, Crutches, etc.)? No PATIENT GENDER DATA: Female. status: : No status: NO. PATIENT RELEVANT IMPLANT DATA REVIEWED: Not Applicable RADIOLOGY DEPARTMENT: Ultrasound PERIPHERAL IV DATA: Not applicable SIGNED BY: Wendy Edge RDMS RVT September 27, 2022 8:36 AM documented in this encounter [facility] 09-13-2022 Note HNO ID: [id number] Author: Micheline Weston PT Service: ? Author Type: Physical Therapist Type: Progress Notes Filed: 10/25/2022 1:17 PM Note Text: 10/25/2022 [facility] PHYSICAL THERAPY DISCONTINUANCE OF CARE Plan of Care Period: Start of Care Date: 07/05/22 Last Visit Date: 09/13/2022 Therapy Program: The following is a summary of the interventions provided for this episode of care; Therapeutic exercise, Manual therapy, and Self-shelter management Assessment: The following is the goal status: Goals for Episode of Care: created on 07/05/22 Updated on: 09/13/22 Patient demonstrates independence and compliance with home exercise Program.-MET Patient displays improved range of motion and muscle dynamics of pelvic floor as evidenced by the ability to lengthen to normalize bladder function; reduce pelvic pain.-MET Patient reports increased ability to start a stream of urine in 5 seconds or less at least 80% of the time to normalize bladder function-NOT MET Patient reports increased ability to fully empty bladder at least 80% of the time to normalize bladder function.-MET Patient displays decreased muscle spasms in pelvic floor to allow for decreased pain levels, improved bladder-MET Patient to report at least 80% improvement in pain with sexual Trivoli.-MET Patient Goals: improve pain and bladder function Based on the most recent progress report, patient was progressing as expected toward functional goals based on documented subjective information on progress and documented objective information regarding range of motion. Reason for Discontinuation of Care: Patient has not returned to therapy or scheduled additional follow-up appointments. Micheline Weston, PT Episode Visit Count: 5 Therapist That Will Accept/Oversee The Plan Of Care: Micheline Weston Start of Care Date: 07/05/22 Onset Date: 04/06/22 Plan of Care Certification Date: 07/05/22 Next Certification Due Date: 10/03/22 Patient Identified by Name and Date of : Yes REHABILITATION AND SPORTS THERAPY PHYSICAL THERAPY PROGRESS REPORT PLAN OF CARE UPDATE: Assessment: Edgar Nava demonstrates improvements in pelvic floor muscle tightness/tenderness, ability to lengthen pelvic floor muscles, ability to empty bladder, pelvic pain during intercourse. She has progressed toward goals. Patient continues to present with impairments in difficulty starting a stream of urine, abdominal pain. She will benefit from continued skilled therapy services to meet the updated goals for this plan of care as noted below. Goals for Episode of Care: created on 07/05/22 Updated on: 09/13/22 Patient demonstrates independence and compliance with home exercise Program.-MET Patient displays improved range of motion and muscle dynamics of pelvic floor as evidenced by the ability to lengthen to normalize bladder function; reduce pelvic pain.-MET Patient reports increased ability to start a stream of urine in 5 seconds or less at least 80% of the time to normalize bladder function-NOT MET Patient reports increased ability to fully empty bladder at least 80% of the time to normalize bladder function.-MET Patient displays decreased muscle spasms in pelvic floor to allow for decreased pain levels, improved bladder-MET Patient to report at least 80% improvement in pain with sexual Trivoli.-MET Patient Goals: improve pain and bladder function Planned Interventions, Frequency, and Duration: 1x every other week, 4 weeks (reassess at 4 weeks and progress as indicated) Total Number of Visits Planned: 2 Patient to be seen for Therapeutic exercise (04746), Manual therapy ([id number]), Self-shelter management ([id number]), Patient/Family/Caregiver Education PLAN FOR NEXT VISIT: continue manual work SUBJECTIVE: Patient Reason for Visit: Pt reports being on her period for 3 weeks now, has intense abdominal cramping. Pt reports no pain with intercourse. Pt reports feeling like something is pushing on her bladder, increased abdominal pressure. Pt reports having an US scheduled for next week. Pain: Pain Pain Level: 7 Pain Location: Abdomen Description: Stabbing Frequency: Intermittent Post Treatment Pain Post Treatment Pain Level: 5 PROMIS Scales Higher is Better 09/11/2022 07/03/2022 Phys Func - Score 52 (within normal limits) 54 (within normal limits) Phys Func - Percentile 58 % 66 % Self-Eff Symptom - Score 39 (Low) 51 (Average) Self-Eff Symptom - Percentile 14 % 54 % T-scores: mean of general population = 50. 5 points is clinically meaningfully difference Percentiles provide an indication of how the patient's score ranks in relation to the general population. Higher percentile rankings indicate better function/quality of life. 50th percentile is the average of the general population and indicates half of respondents had a worse score. OBJECTIVE MEASURES WITH LE (more content not included)... [facility] 09-11-2022 Note HNO ID: [id number] Author: Reina Haywood APRN.CCIE Service: ? Author Type: Nurse Practitioner Type: Progress Notes Filed: 09/11/2022 3:50 PM Note Text: Predictive Maintenance Technician offered: Patient declines. Edgar Nava is a 17 year old female who presents for problem visit prolong bleeding for 1 month(s). HPI: pt states that after last visit she had 4 days of no bleeding, but since then she has had bleeding daily with severe cramping. She has been taking the Sprintec for the pasted month. Just started a new pack yesterday. OB History T0 L0 SAB0 IAB0 Ectopic0 Multiple0 Live Births0 Osteologist History LMP: 08/24/2022 (Exact Date), Having periods Age at Menarche: Age at First : Age at Menopause: Osteologist History Comments: Sexual Activity: Not Currently; Male Contraception: Pill PAST MEDICAL HISTORY Diagnosis Date Menstrual periods, abnormal 06/2015 NEGATIVE HISTORY OF 2013 Normal Color Vision Pneumonia 11/2013 resolved Sepsis (HCC) 12/16/2013 resolved. Admitted for observation [facility] after 2 day stay PAST SURGICAL HISTORY Procedure Laterality Date PAST SURGICAL HISTORY OF teeth removed FAMILY HISTORY Problem Relation Age of Onset Blood Clots Maternal Grandmother genetic clotting disorder - aorta replaced, screens Aneurysm Maternal Grandmother Blood Clots Mother None Other Social History Tobacco Use Smoking status: Never Smokeless tobacco: Never Vaping Use Vaping Use: Some days Substances: CBD Devices: Disposable Substance Use Topics Alcohol use: Not Currently Comment: occasionally Drug use: Yes Frequency: 6.0 times per week Types: Marijuana Current Outpatient Medications Medication Sig norgestimate 0.25 mg-ethinyl estradiol 35 mcg (SPRINTEC) 0.25-35 mg-mcg per tablet Take 1 tablet by mouth once daily. Take active pills only. Start a new pack every 3 weeks. acetic acid (VOSOL) 2 % otic solution Use 4 Drops in the right ear three times daily. (Patient not taking: Reported on 09/11/2022) No current facility-administered medications for this visit. Allergies As of Date: 09/11/2022 (No Known Allergies) Fully Assessed 09/11/2022 REVIEW OF SYSTEMS Expanded ROS: N/A Allergies and current medication updated:Yes EXAM: BP 106/80 Pulse 96 Resp 14 Wt 203 lb (92.1kg) SpO2 98% LMP 08/24/2022 GENERAL: pleasant, female in no apparent distress HEENT: Normocephalic, atraumatic, mucus membranes moist, and no lesions CHEST: Normal inspiratory effort NEURO: alert and oriented x3,exam grossly non-focal EXTREMITIES: normal ASSESSMENT/PLAN: 1. Abnormal uterine bleeding (AUB) - ICD9: 626.9, ICD10: N93.9 (primary diagnosis) - CBC + DIFF - COMP METABOLIC PANEL - TSH BLD - PELVIC US WHI - Stop OCP, start Aygestin taper when finished restart Sprintec 2. Dermatitis - ICD9: 692.9, ICD10: L30.9 - Topical steriod tx with Rx for steriod cream/ointment- see orders - discussed skin care of rash Follow up if symptoms persist or worsen. Will notify patient of test results. Reina Haywood APRN.LISA Medical Decision Making: Problems: Low: Acute, uncomplicated illness or injury Data: Unique test(s) ordered: 3+ Risk: Low: Low risk from testing/treatment Moderate: Drug management Medical Decision Making Level: 4 - Moderate [facility] 08-29-2022 Miscellaneous Notes Pt transferred to [facility] staff to reschedule pelvic floor therapy. Brenda Mckeon LPN Voicemail and [employer] message sent to pt with below information. Brenda Mckeon LPN It looks like RM switched her to sprintec about 2 weeks ago. I would encouraged her to continue with that & pelvic floor PT. The other things she could consider is a referral to the pelvic pain clinic. Ken Richards MD Patient calling today c/o worsening bilateral pelvic pain again the last couple days. Rating 7/10 on the pain scale now. Has tried ibuprofen, tylenol and heating pad. Nothing has helped at all. She changed OCP from Seasonique to sprintec after 08/19/22 visit because she was having prolonged bleeding. After that her bleeding stopped on 08/20/22, but it restarted again on 08/25/22. Please advise. Leticia Sher RN documented in this encounter [facility] 08-19-2022 Note HNO ID: [id number] Author: Reina Haywood APRN.LISA Service: ? Author Type: Nurse Practitioner Type: Progress Notes Filed: 08/19/2022 11:32 AM Note Text: Edgar Nava is a 17 year old, who presents complaining of menorrhagia , irregular menses lasting 14-35 days. Patient states that in April she had a 2-week long menses that was moderate bleeding. Then on 07/11/2022 her period started again and just stopped yesterday 08/18/2022. She has been taking Seasonique since September 2021 and was able to just have a menses every 3 months with light to moderate flow for 5 days. Patient did go to [place] [facility] 08/15/2022 for chest pain and SOB. ED work-up was negative for blood clots or anemia. HISTORY PAST MEDICAL HISTORY Diagnosis Date Menstrual periods, abnormal 06/2015 NEGATIVE HISTORY OF 2013 Normal Color Vision Pneumonia 11/2013 resolved Sepsis (HCC) 12/16/2013 resolved. Admitted for observation [facility] after 2 day stay PAST SURGICAL HISTORY Procedure Laterality Date PAST SURGICAL HISTORY OF teeth removed Current Outpatient Medications Medication Sig acetic acid (VOSOL) 2 % otic solution Use 4 Drops in the right ear three times daily. L-Norgest and E Estradiol-E Estrad (SEASONIQUE) 0.15 mg-30 mcg (84)/10 mcg (7) Take 1 tablet by mouth once daily. FLUoxetine (PROZAC) 10 mg capsule Take 1 capsule by mouth once daily. (Patient not taking: Reported on 08/19/2022) No current facility-administered medications for this visit. ALLERGIES No Known Allergies Social History Tobacco Use Smoking status: Never Smokeless tobacco: Never Vaping Use Vaping Use: Some days Substance Use Topics Alcohol use: Yes Comment: occasionally Drug use: Yes Types: Marijuana FAMILY HISTORY Problem Relation Age of Onset Blood Clots Maternal Grandmother genetic clotting disorder - aorta replaced, screens Aneurysm Maternal Grandmother Blood Clots Mother None Other Past Osteologist History: Ultrasound, Polycystic Ovarian Disease PHYSICAL EXAM Wt 202 lb 6.4 oz (91.8 kg) LMP 07/11/2022 (Approximate) BMI 33.72 kg/m? General: Well developed, well nourished female in no distress. Skin: normal color Extremities: Normal range of motion and no edema. ASSESSMENT/PLAN: 1. Menorrhagia with irregular cycle - ICD9: 626.2, ICD10: N92.1 D/C she Ordered Sprintec with continuous use Follow up as needed or for annual Reina EDUAR Haywood Medical Decision Making: Problems: Low: Acute, uncomplicated illness or injury Risk: Low: Low risk from testing/treatment Moderate: Drug management Medical Decision Making Level: 3 - Low [facility] 08-19-2022 History of Present illness Narrative Edgar Nava is a 17 year old, who presents complaining of menorrhagia , irregular menses lasting 14-35 days. Patient states that in April she had a 2-week long menses that was moderate bleeding. Then on 07/11/2022 her period started again and just stopped yesterday 08/18/2022. She has been taking Seasonique since September 2021 and was able to just have a menses every 3 months with light to moderate flow for 5 days. Patient did go to [place] [facility] 08/15/2022 for chest pain and SOB. ED work-up was negative for blood clots or anemia. HISTORY PAST MEDICAL HISTORY Diagnosis Date Menstrual periods, abnormal 06/2015 NEGATIVE HISTORY OF 2013 Normal Color Vision Pneumonia 11/2013 resolved Sepsis (HCC) 12/16/2013 resolved. Admitted for observation [facility] after 2 day stay PAST SURGICAL HISTORY Procedure Laterality Date PAST SURGICAL HISTORY OF teeth removed Current Outpatient Medications Medication Sig acetic acid (VOSOL) 2 % otic solution Use 4 Drops in the right ear three times daily. L-Norgest and E Estradiol-E Estrad (SEASONIQUE) 0.15 mg-30 mcg (84)/10 mcg (7) Take 1 tablet by mouth once daily. FLUoxetine (PROZAC) 10 mg capsule Take 1 capsule by mouth once daily. (Patient not taking: Reported on 08/19/2022) No current facility-administered medications for this visit. ALLERGIES No Known Allergies Social History Tobacco Use Smoking status: Never Smokeless tobacco: Never Vaping Use Vaping Use: Some days Substance Use Topics Alcohol use: Yes Comment: occasionally Drug use: Yes Types: Marijuana FAMILY HISTORY Problem Relation Age of Onset Blood Clots Maternal Grandmother genetic clotting disorder - aorta replaced, screens Aneurysm Maternal Grandmother Blood Clots Mother None Other Past Osteologist History: Ultrasound, Polycystic Ovarian Disease PHYSICAL EXAM Wt 202 lb 6.4 oz (91.8 kg) LMP 07/11/2022 (Approximate) BMI 33.72 kg/m General: Well developed, well nourished female in no distress. Skin: normal color Extremities: Normal range of motion and no edema. ASSESSMENT/PLAN: 1. Menorrhagia with irregular cycle - ICD9: 626.2, ICD10: N92.1 D/C she Ordered Sprintec with continuous use Follow up as needed or for annual Reina Haywood APRN.CNP Medical Decision Making: Problems: Low: Acute, uncomplicated illness or injury Risk: Low: Low risk from testing/treatment Moderate: Drug management Medical Decision Making Level: 3 - Low documented in this encounter [facility] 08-09-2022 Miscellaneous Notes Spoke with pt and she has appointment scheduled with [facility] to follow up . Brenda Mckeon LPN Please have patient make follow up appointment with . Thank you, Wendy Dallas APRN.CNM Spoke with pt and she completed the course of 800mg ibuprofen and she is continuing to have bleeding. Pt reports that today is day 30 of her menses. She is changing her pad 4x daily. She is currently on Seasonique and stated that she takes this daily at the same time and has not missed any doses. Complaints of feeling tired, no SOB, chest pain or discomfort no lightheadedness. Please advise. Brenda Mckeon LPN documented in this encounter [facility] 08-06-2022 Miscellaneous Notes Patient called and appointment rescheduled documented in this encounter [facility] 08-02-2022 Note HNO ID: [id number] Author: Micheline Weston PT Service: ? Author Type: Physical Therapist Type: Progress Notes Filed: 08/02/2022 2:03 PM Note Text: Episode Visit Count: 4 Therapist That Will Accept/Oversee The Plan Of Care: Micheline Weston Start of Care Date: 07/05/22 Onset Date: 04/06/22 Plan of Care Certification Date: 07/05/22 Next Certification Due Date: 10/03/22 Patient Identified by Name and Date of : Yes REHABILITATION AND SPORTS THERAPY PHYSICAL THERAPY TREATMENT NOTE ASSESSMENT: Edgar Nava tolerated the session with no issues. She demonstrated difficulty with continued pelvic pain during intercourse, internal pelvic floor manual work deferred due to patient request. The patient will continue to benefit from ongoing skilled physical therapy to progress toward set goals. PLAN FOR NEXT VISIT: reassessment SUBJECTIVE: Patient Reason for Visit: Pt reports buying lubricating condoms but has not tried lubrication, states the condoms did not help pain. Pt reports good compliance with HEP. Pt reports still being on period, has currently been bleeding for 21 days, has notified physician. Pain: Pain Pain Level: 0 Post Treatment Pain Post Treatment Pain Level: 0 OBJECTIVE MEASURES WITH LEVEL OF FUNCTION: Pelvic Floor Pain with penetration: Superficial Pelvic Floor Muscle Assessment Consent for pelvic assessment/testing and treatment: Patient was educated regarding pelvic floor physical therapy assessment/treatment which may include pelvic floor and girdle muscle assessment externally or internally (vaginal or rectal approach)., Patient verbalized consent for the above treatment approaches today. Patient understands they have control of the treatment and an opportunity to stop treatment at any time. (Internal PF manual work deferred due to pt request.) Pelvic Floor Manual Assessment External Pelvic Region Tenderness/ Hyperactivity - Trunk: Lower abdominals Lower abdominals: Bilateral (1/1) External Pelvic Region Tenderness/ Hyperactivity - Lower Extremity: Adductor Adductor: Bilateral (1/1) Tissue Restriction/Tenderness Scale: 0= normal, 1= mild, 2= moderate, 3= severe TREATMENT: Manual Therapy: 1: MFR to B lower abdominals, supine 2: MFR to B adductors, supine Skilled Intervention: Manual skills to improve joint mobility, ROM, and decrease pain. Utilized anatomy knowledge of the therapist, and assessment of patient's response to intervention. Self-Assisted Management: 1: Reviewed benefits of using lubrication during intercourse Skilled Intervention: Skilled judgment in the selection of proper modification for activity of daily living/home management based on clinical presentation, deficits, and needs. Billing Manual TherapyTreatment Minutes: 32 Self-Care/Home Management Treatment Minutes: 2 Total Treatment Time Minutes (timed/untimed): 34 Micheline Weston, PT [facility] 08-02-2022 History of Present illness Narrative Episode Visit Count: 4 Therapist That Will Accept/Oversee The Plan Of Care: Micheline Weston Start of Care Date: 07/05/22 Onset Date: 04/06/22 Plan of Care Certification Date: 07/05/22 Next Certification Due Date: 10/03/22 Patient Identified by Name and Date of : Yes REHABILITATION AND SPORTS THERAPY PHYSICAL THERAPY TREATMENT NOTE ASSESSMENT: Edgar Nava tolerated the session with no issues. She demonstrated difficulty with continued pelvic pain during intercourse, internal pelvic floor manual work deferred due to patient request. The patient will continue to benefit from ongoing skilled physical therapy to progress toward set goals. PLAN FOR NEXT VISIT: reassessment SUBJECTIVE: Patient Reason for Visit: Pt reports buying lubricating condoms but has not tried lubrication, states the condoms did not help pain. Pt reports good compliance with HEP. Pt reports still being on period, has currently been bleeding for 21 days, has notified physician. Pain: Pain Pain Level: 0 Post Treatment Pain Post Treatment Pain Level: 0 OBJECTIVE MEASURES WITH LEVEL OF FUNCTION: Pelvic Floor Pain with penetration: Superficial Pelvic Floor Muscle Assessment Consent for pelvic assessment/testing and treatment: Patient was educated regarding pelvic floor physical therapy assessment/treatment which may include pelvic floor and girdle muscle assessment externally or internally (vaginal or rectal approach)., Patient verbalized consent for the above treatment approaches today. Patient understands they have control of the treatment and an opportunity to stop treatment at any time. (Internal PF manual work deferred due to pt request.) Pelvic Floor Manual Assessment External Pelvic Region Tenderness/ Hyperactivity - Trunk: Lower abdominals Lower abdominals: Bilateral (1/1) External Pelvic Region Tenderness/ Hyperactivity - Lower Extremity: Adductor Adductor: Bilateral (1/1) Tissue Restriction/Tenderness Scale: 0= normal, 1= mild, 2= moderate, 3= severe TREATMENT: Manual Therapy: 1: MFR to B lower abdominals, supine 2: MFR to B adductors, supine Skilled Intervention: Manual skills to improve joint mobility, ROM, and decrease pain. Utilized anatomy knowledge of the therapist, and assessment of patient's response to intervention. Self-Assisted Management: 1: Reviewed benefits of using lubrication during intercourse Skilled Intervention: Skilled judgment in the selection of proper modification for activity of daily living/home management based on clinical presentation, deficits, and needs. Billing Manual TherapyTreatment Minutes: 32 Self-Care/Home Management Treatment Minutes: 2 Total Treatment Time Minutes (timed/untimed): 34 Micheline Weston PT documented in this encounter [facility] 08-01-2022 Note HNO ID: [id number] Author: Yenifer Browne MD Service: ? Author Type: Physician Type: Progress Notes Filed: 08/01/2022 3:33 PM Note Text: The patient was seen for the issues discussed below. Problem list and history reviewed. Allergies reviewed. Medications reviewed. Immunizations reviewed. HISTORY: see history section below PHYSICAL EXAM: GENERAL: alert, well appearing, in no distress LEFT EYE: no drainage noted, no conjunctival injection noted; RIGHT EYE: no drainage noted, no conjunctival injection noted; NO ADDITIONAL EYE FINDINGS LEFT EAR: pinna normal, auditory canal normal, tympanic membrane clear, no effusion noted, RIGHT EAR: pinna normal, auditory canal normal, tympanic membrane clear, no effusion noted NOSE/SINUSES: nares normal, mucosa normal, no drainage noted OROPHARYNX: lips without lesions noted, gums/mucosa normal, oropharynx without erythema or exudates NECK/ADENOPATHY: neck supple, no adenopathy noted CHEST/LUNGS: lungs clear to auscultation CARDIOVASCULAR: regular rate and rhythm, capillary refill less than 2 seconds ABDOMEN: soft, bowel sounds normal, no masses, no organomegaly, abdomen nondistended, mild tenderness to direct palpation in the midepigastric region SKIN: normal color, no rash, no jaundice, moist mucous membranes, turgor within normal limits GENERAL RECOMMENDATIONS: - Issues discussed in detail. - Symptom relief measures as needed. - Prescriptions, if ordered, are listed below. - Labs and/or X-rays, if ordered or obtained, are listed below. If the final results are not available at the conclusion of this visit, then additional recommendations may be made based on the final results. Note that all x-rays are reviewed by a radiologist before being considered final. - EKG, if ordered or obtained, is reviewed by a rabbit breeder before being considered final. Additional recommendations may be made based on the final results. - Return to clinic should current symptoms (if present) worsen, other problems develop, or as needed. ADDITIONAL AND DICTATED PORTION: ADDITIONAL HISTORY The following Nursing History was reviewed with the family: Patient presents with: Med Check: Med Check - Pt reports doing well, discuss ? Hot flashes. The patient is currently on Prozac 10 mg daily. This was started mid May. Over the past week she has developed hot flashes, dizziness, sweating, and mild facial flushing. This is occurring once to twice per day. Episodes last 5 to 10 minutes. Some abdominal pain has also been present. No other potential side effects from the Prozac. No suicidal ideation. SCARED Rating Scale Panic/somatic 20 cutoff equals 7 Generalized anxiety 12 cutoff equals 9 Separation 10 cutoff equals 5 Social 14 cutoff equals 8 School avoidance 3 cutoff equals 3 TOTAL 59 cutoff equals 25 PHQ-9 score today was 4 with questions 12 and 13 which screen for suicidal ideation both answered NO. Review of systems negative for fevers. No eye, ear, nose, throat complaints. No cough. Some wheezing has been present in the morning and at night. No rash or edema. Edgar also has some questions regarding the possibility of having her dog certified as a service dog. ACTIVE PROBLEM LIST Mild Persistent Asthma Without Complication Acne Depression Anxiety Seborrhea Abdominal Pain Fingernail Abnormalities Abdominal Pain, Right Lower Quadrant Vaginal Pain Muscle Tightness PAST MEDICAL HISTORY Diagnosis Date Menstrual periods, abnormal 06/2015 NEGATIVE HISTORY OF 2013 Normal Color Vision Pneumonia 11/2013 resolved Sepsis (HCC) 12/16/2013 resolved. Admitted for observation [facility] after 2 day stay PAST SURGICAL HISTORY Procedure Laterality Date PAST SURGICAL HISTORY OF teeth removed ADDITIONAL EXAM / OTHER INFORMATION none ADDITIONAL IMPRESSION / PLAN 1. Anxiety. SCARED survey essentially unchanged from mid May. This would indicate that increasing the dosage of the Prozac could be beneficial. However, the hot flashes, dizziness, sweating, and facial flushing can be consistent with serotonin syndrome. Therefore we will discontinue the Prozac entirely, to observe whether the hot flashes resolve in the absence of medication. She will also discussed the hot flashes with her ornamental ironworker whom she has an appointment with in the next couple weeks. Edgar is to call me with the results of the medication free trial late in July (but by 08/22/2022). The reason for this date is I will be unavailable for a prolonged period afterwards (although my colleagues will be available to handle on-call issues). I suspect that the hot flashes will not resolve with discontinuation of medication. If that is found to be the case, then the Prozac will be restarted at 20 mg iram (more content not included)... [facility] 08-01-2022 History of Present illness Narrative The patient was seen for the issues discussed below. Problem list and history reviewed. Allergies reviewed. Medications reviewed. Immunizations reviewed. HISTORY: see history section below PHYSICAL EXAM: GENERAL: alert, well appearing, in no distress LEFT EYE: no drainage noted, no conjunctival injection noted; RIGHT EYE: no drainage noted, no conjunctival injection noted; NO ADDITIONAL EYE FINDINGS LEFT EAR: pinna normal, auditory canal normal, tympanic membrane clear, no effusion noted, RIGHT EAR: pinna normal, auditory canal normal, tympanic membrane clear, no effusion noted NOSE/SINUSES: nares normal, mucosa normal, no drainage noted OROPHARYNX: lips without lesions noted, gums/mucosa normal, oropharynx without erythema or exudates NECK/ADENOPATHY: neck supple, no adenopathy noted CHEST/LUNGS: lungs clear to auscultation CARDIOVASCULAR: regular rate and rhythm, capillary refill less than 2 seconds ABDOMEN: soft, bowel sounds normal, no masses, no organomegaly, abdomen nondistended, mild tenderness to direct palpation in the midepigastric region SKIN: normal color, no rash, no jaundice, moist mucous membranes, turgor within normal limits GENERAL RECOMMENDATIONS: - Issues discussed in detail. - Symptom relief measures as needed. - Prescriptions, if ordered, are listed below. - Labs and/or X-rays, if ordered or obtained, are listed below. If the final results are not available at the conclusion of this visit, then additional recommendations may be made based on the final results. Note that all x-rays are reviewed by a radiologist before being considered final. - EKG, if ordered or obtained, is reviewed by a rabbit breeder before being considered final. Additional recommendations may be made based on the final results. - Return to clinic should current symptoms (if present) worsen, other problems develop, or as needed. ADDITIONAL & DICTATED PORTION: ADDITIONAL HISTORY The following Nursing History was reviewed with the family: Patient presents with: Med Check: Med Check - Pt reports doing well, discuss ? Hot flashes. The patient is currently on Prozac 10 mg daily. This was started mid May. Over the past week she has developed hot flashes, dizziness, sweating, and mild facial flushing. This is occurring once to twice per day. Episodes last 5 to 10 minutes. Some abdominal pain has also been present. No other potential side effects from the Prozac. No suicidal ideation. SCARED Rating Scale Panic/somatic 20 cutoff equals 7 Generalized anxiety 12 cutoff equals 9 Separation 10 cutoff equals 5 Social 14 cutoff equals 8 School avoidance 3 cutoff equals 3 TOTAL 59 cutoff equals 25 PHQ-9 score today was 4 with questions 12 and 13 which screen for suicidal ideation both answered NO. Review of systems negative for fevers. No eye, ear, nose, throat complaints. No cough. Some wheezing has been present in the morning and at night. No rash or edema. Edgar also has some questions regarding the possibility of having her dog certified as a service dog. ACTIVE PROBLEM LIST Mild Persistent Asthma Without Complication Acne Depression Anxiety Seborrhea Abdominal Pain Fingernail Abnormalities Abdominal Pain, Right Lower Quadrant Vaginal Pain Muscle Tightness PAST MEDICAL HISTORY Diagnosis Date Menstrual periods, abnormal 06/2015 NEGATIVE HISTORY OF 2013 Normal Color Vision Pneumonia 11/2013 resolved Sepsis (HCC) 12/16/2013 resolved. Admitted for observation [facility] after 2 day stay PAST SURGICAL HISTORY Procedure Laterality Date PAST SURGICAL HISTORY OF teeth removed ADDITIONAL EXAM / OTHER INFORMATION none ADDITIONAL IMPRESSION / PLAN 1. Anxiety. SCARED survey essentially unchanged from mid May. This would indicate that increasing the dosage of the Prozac could be beneficial. However, the hot flashes, dizziness, sweating, and facial flushing can be consistent with serotonin syndrome. Therefore we will discontinue the Prozac entirely, to observe whether the hot flashes resolve in the absence of medication. She will also discussed the hot flashes with her ornamental ironworker whom she has an appointment with in the next couple weeks. Edgar is to call me with the results of the medication free trial late in July (but by 08/22/2022). The reason for this date is I will be unavailable for a prolonged period afterwards (although my colleagues will be available to handle on-call issues). I suspect that the hot flashes will not resolve with discontinuation of medication. If that is found to be the case, then the Prozac will be restarted at 20 mg daily. If the hot flashes do resolve, then potential psychiatry referral would be indicated as the medical management would be more complex. We discussed that service dogs/emotional support dogs can be very useful for anxiety. Multiple sources are present on the Internet regarding how to get an animal certified. I spent a total of 30-39 minutes on the date of service. This included preparing to see the patient; [id number] patient care; obtaining and/or reviewing separately obtained history; performing a medically appropriate examination; counseling and educating the patient/family/caregiver; and completing clinical documentation. As applicable, this also included ordering medications, tests, or procedures; independently interpreting results; communicating results to the patient/family/caregiver; and care coordination (not separately reported). This note was partially generated using [employer] voice recognition system, and there may be some incorrect words, spellings, and punctuation that were not noted in checking the note before saving. Yenifer Browne M.D. documented in this encounter [facility] 07-26-2022 Note HNO ID: [id number] Author: Micheline Weston PT Service: ? Author Type: Physical Therapist Type: Progress Notes Filed: 07/26/2022 9:08 AM Note Text: Episode Visit Count: 3 Therapist That Will Accept/Oversee The Plan Of Care: Micheline Weston Start of Care Date: 07/05/22 Onset Date: 04/06/22 Plan of Care Certification Date: 07/05/22 Next Certification Due Date: 10/03/22 Patient Identified by Name and Date of : Yes REHABILITATION AND SPORTS THERAPY PHYSICAL THERAPY TREATMENT NOTE ASSESSMENT: Edgar Nava tolerated the session with no issues. She demonstrated improvements in pain during bowel movements, difficulty with continued pelvic pain otherwise. The patient will continue to benefit from ongoing skilled physical therapy to progress toward set goals. PLAN FOR NEXT VISIT: internal/external manual work SUBJECTIVE: Patient Reason for Visit: Pt reports no change in pelvic pain since last visit, does note that bowel movements have been less painful. Pt reports superficial pain with intercourse, has not tried lubrication. Pt reports good compliance with HEP. Pain: Pain Pain Level: 0 Post Treatment Pain Post Treatment Pain Level: 0 OBJECTIVE MEASURES WITH LEVEL OF FUNCTION: Pelvic Floor Pain with penetration: Superficial Difficulty starting stream: Sometimes Incomplete emptying: No Pelvic Floor Muscle Assessment Consent for pelvic assessment/testing and treatment: Patient was educated regarding pelvic floor physical therapy assessment/treatment which may include pelvic floor and girdle muscle assessment externally or internally (vaginal or rectal approach)., Patient verbalized consent for the above treatment approaches today. Patient understands they have control of the treatment and an opportunity to stop treatment at any time. (Internal PF manual work deferred due to pt request.) Pelvic Floor Manual Assessment External Pelvic Region Tenderness/ Hyperactivity - Trunk: Lower abdominals Lower abdominals: Bilateral (1/1) External Pelvic Region Tenderness/ Hyperactivity - Lower Extremity: Adductor Adductor: Bilateral (1/1) Tissue Restriction/Tenderness Scale: 0= normal, 1= mild, 2= moderate, 3= severe TREATMENT: Therapeutic Exercise: 1: *standing sidebend stretch, [id number] each 2: *supine hip flexor stretch, 8p61kal each 3: *BKTC stretch, 4l36dbm Skilled Intervention: Patient was educated in proper exercise technique and purpose for exercises. Reviewed and educated patient on additions/changes for home exercise program as above (*). Skilled judgment was provided in selection of appropriate interventions. Provided written instruction for home exercise program to facilitate proper performance and compliance. Manual Therapy: 1: MFR to B lower abdominals, supine 2: MFR to B adductors, supine Skilled Intervention: Manual skills to improve joint mobility, ROM, and decrease pain. Utilized anatomy knowledge of the therapist, and assessment of patient's response to intervention. Self-Assisted Management: 1: Reviewed benefits of using lubrication during intercourse Skilled Intervention: Skilled judgment in the selection of proper modification for activity of daily living/home management based on clinical presentation, deficits, and needs. Billing Therapeutic Exercise Treatment Minutes: 10 Manual TherapyTreatment Minutes: 26 Self-Care/Home Management Treatment Minutes: 2 Total Treatment Time Minutes (timed/untimed): 38 Micheline Weston, PT [facility] 07-26-2022 History of Present illness Narrative Episode Visit Count: 3 Therapist That Will Accept/Oversee The Plan Of Care: Micheline Weston Start of Care Date: 07/05/22 Onset Date: 04/06/22 Plan of Care Certification Date: 07/05/22 Next Certification Due Date: 10/03/22 Patient Identified by Name and Date of : Yes REHABILITATION AND SPORTS THERAPY PHYSICAL THERAPY TREATMENT NOTE ASSESSMENT: Edgar Nava tolerated the session with no issues. She demonstrated improvements in pain during bowel movements, difficulty with continued pelvic pain otherwise. The patient will continue to benefit from ongoing skilled physical therapy to progress toward set goals. PLAN FOR NEXT VISIT: internal/external manual work SUBJECTIVE: Patient Reason for Visit: Pt reports no change in pelvic pain since last visit, does note that bowel movements have been less painful. Pt reports superficial pain with intercourse, has not tried lubrication. Pt reports good compliance with HEP. Pain: Pain Pain Level: 0 Post Treatment Pain Post Treatment Pain Level: 0 OBJECTIVE MEASURES WITH LEVEL OF FUNCTION: Pelvic Floor Pain with penetration: Superficial Difficulty starting stream: Sometimes Incomplete emptying: No Pelvic Floor Muscle Assessment Consent for pelvic assessment/testing and treatment: Patient was educated regarding pelvic floor physical therapy assessment/treatment which may include pelvic floor and girdle muscle assessment externally or internally (vaginal or rectal approach)., Patient verbalized consent for the above treatment approaches today. Patient understands they have control of the treatment and an opportunity to stop treatment at any time. (Internal PF manual work deferred due to pt request.) Pelvic Floor Manual Assessment External Pelvic Region Tenderness/ Hyperactivity - Trunk: Lower abdominals Lower abdominals: Bilateral (1/1) External Pelvic Region Tenderness/ Hyperactivity - Lower Extremity: Adductor Adductor: Bilateral (1/1) Tissue Restriction/Tenderness Scale: 0= normal, 1= mild, 2= moderate, 3= severe TREATMENT: Therapeutic Exercise: 1: *standing sidebend stretch, 3s74xpl each 2: *supine hip flexor stretch, 1d68fmg each 3: *BKTC stretch, 2i22bed Skilled Intervention: Patient was educated in proper exercise technique and purpose for exercises. Reviewed and educated patient on additions/changes for home exercise program as above (*). Skilled judgment was provided in selection of appropriate interventions. Provided written instruction for home exercise program to facilitate proper performance and compliance. Manual Therapy: 1: MFR to B lower abdominals, supine 2: MFR to B adductors, supine Skilled Intervention: Manual skills to improve joint mobility, ROM, and decrease pain. Utilized anatomy knowledge of the therapist, and assessment of patient's response to intervention. Self-Assisted Management: 1: Reviewed benefits of using lubrication during intercourse Skilled Intervention: Skilled judgment in the selection of proper modification for activity of daily living/home management based on clinical presentation, deficits, and needs. Billing Therapeutic Exercise Treatment Minutes: 10 Manual TherapyTreatment Minutes: 26 Self-Care/Home Management Treatment Minutes: 2 Total Treatment Time Minutes (timed/untimed): 38 Micheline Weston PT documented in this encounter [facility] 07-19-2022 Note HNO ID: [id number] Author: Micheline Weston PT Service: ? Author Type: Physical Therapist Type: Progress Notes Filed: 07/19/2022 11:09 AM Note Text: Episode Visit Count: 2 Therapist That Will Accept/Oversee The Plan Of Care: Micheline Weston Start of Care Date: 07/05/22 Onset Date: 04/06/22 Plan of Care Certification Date: 07/05/22 Next Certification Due Date: 10/03/22 Patient Identified by Name and Date of : Yes REHABILITATION AND SPORTS THERAPY PHYSICAL THERAPY TREATMENT NOTE ASSESSMENT: Edgar Nava tolerated the session with no issues. She demonstrated some improvement in pelvic pain during intercourse per patient report. The patient will continue to benefit from ongoing skilled physical therapy to progress toward set goals. PLAN FOR NEXT VISIT: progress stretches, internal/external manual work SUBJECTIVE: Patient Reason for Visit: Pt reports painful bowel movements began about 2 days ago, feels like she's constipated. Pt reports some improvement in pelvic pain with intercourse. Pt reports good compliance with HEP. Pt reports planning on order dilators soon. Pain: Pain Pain Level: 0 Post Treatment Pain Post Treatment Pain Level: 0 OBJECTIVE MEASURES WITH LEVEL OF FUNCTION: Pelvic Floor Muscle Assessment Consent for pelvic assessment/testing and treatment: Patient was educated regarding pelvic floor physical therapy assessment/treatment which may include pelvic floor and girdle muscle assessment externally or internally (vaginal or rectal approach)., Patient verbalized consent for the above treatment approaches today. Patient understands they have control of the treatment and an opportunity to stop treatment at any time. Pelvic Floor Manual Assessment External Pelvic Region Tenderness/ Hyperactivity - Trunk: Lower abdominals Lower abdominals: Bilateral (1/1) External Pelvic Region Tenderness/ Hyperactivity - Lower Extremity: Adductor Adductor: Bilateral (1/1) Tissue Restriction/Tenderness Scale: 0= normal, 1= mild, 2= moderate, 3= severe TREATMENT: Therapeutic Exercise: 1: *supine 90/90 hamstring stretch, 8p99rgh each 2: *piriformis stretch, 0e08hkl each 3: *LTR, 5j61jia each Skilled Intervention: Patient was educated in proper exercise technique and purpose for exercises. Reviewed and educated patient on additions/changes for home exercise program as above (*). Skilled judgment was provided in selection of appropriate interventions. Provided written instruction for home exercise program to facilitate proper performance and compliance. Manual Therapy: 1: MFR to B lower abdominals, supine 2: MFR to B adductors, supine Skilled Intervention: Manual skills to improve joint mobility, ROM, and decrease pain. Utilized anatomy knowledge of the therapist, and assessment of patient's response to intervention. Billing Therapeutic Exercise Treatment Minutes: 14 Manual TherapyTreatment Minutes: 25 Total Treatment Time Minutes (timed/untimed): 39 Micheline Weston, PT [facility] 07-19-2022 History of Present illness Narrative Episode Visit Count: 2 Therapist That Will Accept/Oversee The Plan Of Care: Micheline Weston Start of Care Date: 07/05/22 Onset Date: 04/06/22 Plan of Care Certification Date: 07/05/22 Next Certification Due Date: 10/03/22 Patient Identified by Name and Date of : Yes REHABILITATION AND SPORTS THERAPY PHYSICAL THERAPY TREATMENT NOTE ASSESSMENT: Edgar Nava tolerated the session with no issues. She demonstrated some improvement in pelvic pain during intercourse per patient report. The patient will continue to benefit from ongoing skilled physical therapy to progress toward set goals. PLAN FOR NEXT VISIT: progress stretches, internal/external manual work SUBJECTIVE: Patient Reason for Visit: Pt reports painful bowel movements began about 2 days ago, feels like she's constipated. Pt reports some improvement in pelvic pain with intercourse. Pt reports good compliance with HEP. Pt reports planning on order dilators soon. Pain: Pain Pain Level: 0 Post Treatment Pain Post Treatment Pain Level: 0 OBJECTIVE MEASURES WITH LEVEL OF FUNCTION: Pelvic Floor Muscle Assessment Consent for pelvic assessment/testing and treatment: Patient was educated regarding pelvic floor physical therapy assessment/treatment which may include pelvic floor and girdle muscle assessment externally or internally (vaginal or rectal approach)., Patient verbalized consent for the above treatment approaches today. Patient understands they have control of the treatment and an opportunity to stop treatment at any time. Pelvic Floor Manual Assessment External Pelvic Region Tenderness/ Hyperactivity - Trunk: Lower abdominals Lower abdominals: Bilateral (1/1) External Pelvic Region Tenderness/ Hyperactivity - Lower Extremity: Adductor Adductor: Bilateral (1/1) Tissue Restriction/Tenderness Scale: 0= normal, 1= mild, 2= moderate, 3= severe TREATMENT: Therapeutic Exercise: 1: *supine 90/90 hamstring stretch, 8z65txc each 2: *piriformis stretch, 6v37qrz each 3: *LTR, 0a30zph each Skilled Intervention: Patient was educated in proper exercise technique and purpose for exercises. Reviewed and educated patient on additions/changes for home exercise program as above (*). Skilled judgment was provided in selection of appropriate interventions. Provided written instruction for home exercise program to facilitate proper performance and compliance. Manual Therapy: 1: MFR to B lower abdominals, supine 2: MFR to B adductors, supine Skilled Intervention: Manual skills to improve joint mobility, ROM, and decrease pain. Utilized anatomy knowledge of the therapist, and assessment of patient's response to intervention. Billing Therapeutic Exercise Treatment Minutes: 14 Manual TherapyTreatment Minutes: 25 Total Treatment Time Minutes (timed/untimed): 39 Micheline Weston PT documented in this encounter [facility] 07-05-2022 Note HNO ID: [id number] Author: Micheline Weston PT Service: ? Author Type: Physical Therapist Type: Progress Notes Filed: 07/05/2022 11:35 AM Note Text: Episode Visit Count: 1 Therapist That Will Accept/Oversee The Plan Of Care: Micheline Weston Start of Care Date: 07/05/22 Onset Date: 04/06/22 Plan of Care Certification Date: 07/05/22 Next Certification Due Date: 10/03/22 Patient Identified by Name and Date of : Yes REHABILITATION AND SPORTS THERAPY PHYSICAL THERAPY EVALUATION PLAN OF CARE: Assessment: Edgar Nava presents with chief complaint of pelvic pain that interferes with bladder function, altered sexual function . She presents with impairments in decreased pelvic floor ROM; pelvic floor muscle tightness/tenderness; impaired bladder and sexual function. PROMIS? (Patient-Reported Outcomes Measurement Information System) scores were reviewed and physical function domain and self efficacy domain identified as within normal limits. Prognosis for therapy is Good due to: current objective clinical presentation . She will benefit from skilled therapy services to meet the goals established for this plan of care as noted below. Goals for Episode of Care: created on 07/05/22 through 10/03/22 Patient demonstrates independence and compliance with home exercise program. Patient displays improved range of motion and muscle dynamics of pelvic floor as evidenced by the ability to lengthen to normalize bladder function; reduce pelvic pain. Patient reports increased ability to start a stream of urine in 5 seconds or less at least 80% of the time to normalize bladder function Patient reports increased ability to fully empty bladder at least 80% of the time to normalize bladder function. Patient displays decreased muscle spasms in pelvic floor to allow for decreased pain levels, improved bladder Patient to report at least 80% improvement in pain with sexual intercourse. Patient Goals: improve pain and bladder function Planned Interventions, Frequency, and Duration: Current Frequency: 1x/week Duration: 4 weeks (reassess at 4 weeks and progress as indicated) Total Number of Visits Planned: 4 Planned Treatment Interventions: Therapeutic exercise (88269), Manual therapy (86990), Self-shelter management (69365), Patient/Family/Caregiver Education PLAN FOR NEXT VISIT: progress stretches, assess external connective tissue Patient demonstrates good understanding of plan of care and treatment. The above goals and plan of care were discussed and agreed upon by patient/family. SUBJECTIVE: Pt reports B lower abdominal pain began about 3 months ago. Pt reports last time she tried to use a tampon, she ended up passing out from pain. Patient Goals: improve pain and bladder function Functional Limitations: bladder function, altered sexual function Prior Level of Function: Independent without limitations Relevant History Past Relevant Medical Conditions: (see note) Past Relevant Surgical Conditions: (see note) Employment: Student Recreation / Current Exercise: stretching PAST MEDICAL HISTORY Diagnosis Date Menstrual periods, abnormal 06/2015 NEGATIVE HISTORY OF 2013 Normal Color Vision Pneumonia 11/2013 resolved Sepsis (HCC) 12/16/2013 resolved. Admitted for observation [facility] after 2 day stay PAST SURGICAL HISTORY Procedure Laterality Date PAST SURGICAL HISTORY OF teeth removed Intake Information: Prescription present Previous Treatment: None Falls Interview: No positive findings with falls interview Aquatic Screen: No Pain: Pain Pain Level: 2 Pain Location: Abdomen Description: Sore Frequency: Intermittent Post Treatment Pain Post Treatment Pain Level: No Change PROMIS Scales Higher is Better 07/03/2022 Phys Func - Score 54 (within normal limits) Phys Func - Percentile 66 % Self-Eff Symptom - Score 51 (Average) Self-Eff Symptom - Percentile 54 % T-scores: mean of general population = 50. 5 points is clinically meaningfully difference Percentiles provide an indication of how the patient's score ranks in relation to the general population. Higher percentile rankings indicate better function/quality of life. 50th percentile is the average of the general population and indicates half of respondents had a worse score. OBJECTIVE MEASURES WITH LEVEL OF FUNCTION: Pelvic Floor Pregnancies: 0 Pain with penetration: Superficial, Avoids tampon use, Pain with internal medical exam Urinary/Bowel History : Urinary History, Bowel History Difficulty starting stream: Sometimes Incomplete emptying: Sometimes Stress Incontinence: No Urgency: No Nocturia (times per night): (0-1) Daytime Frequency (hours): 2-3 Fluid Intake: Water, Tea, Juice, Pop/Diet Pop (8 oz measurements) Water : 4-6 Tea : 5 Juice : 1 Pop/Diet Pop : 1 Difficulty evacuating / Excessive Straining: No Incomplete emptying: No Bowel Movement Frequency: 2x/day Feca (more content not included)... [facility] 07-05-2022 History of Present illness Narrative Episode Visit Count: 1 Therapist That Will Accept/Oversee The Plan Of Care: Micheline Weston Start of Care Date: 07/05/22 Onset Date: 04/06/22 Plan of Care Certification Date: 07/05/22 Next Certification Due Date: 10/03/22 Patient Identified by Name and Date of : Yes RE[facility]ABILITATION AND SPORTS THERAPY PHYSICAL THERAPY EVALUATION PLAN OF CARE: Assessment: Edgar Nava presents with chief complaint of pelvic pain that interferes with bladder function, altered sexual function . She presents with impairments in decreased pelvic floor ROM; pelvic floor muscle tightness/tenderness; impaired bladder and sexual function. PROMIS (Patient-Reported Outcomes Measurement Information System) scores were reviewed and physical function domain and self efficacy domain identified as within normal limits. Prognosis for therapy is Good due to: current objective clinical presentation . She will benefit from skilled therapy services to meet the goals established for this plan of care as noted below. Goals for Episode of Care: created on 07/05/22 through 10/03/22 Patient demonstrates independence and compliance with home exercise program. Patient displays improved range of motion and muscle dynamics of pelvic floor as evidenced by the ability to lengthen to normalize bladder function; reduce pelvic pain. Patient reports increased ability to start a stream of urine in 5 seconds or less at least 80% of the time to normalize bladder function Patient reports increased ability to fully empty bladder at least 80% of the time to normalize bladder function. Patient displays decreased muscle spasms in pelvic floor to allow for decreased pain levels, improved bladder Patient to report at least 80% improvement in pain with sexual intercourse. Patient Goals: improve pain and bladder function Planned Interventions, Frequency, and Duration: Current Frequency: 1x/week Duration: 4 weeks (reassess at 4 weeks and progress as indicated) Total Number of Visits Planned: 4 Planned Treatment Interventions: Therapeutic exercise (26509), Manual therapy (04615), Self-shelter management ([id number]), Patient/Family/Caregiver Education PLAN FOR NEXT VISIT: progress stretches, assess external connective tissue Patient demonstrates good understanding of plan of care and treatment. The above goals and plan of care were discussed and agreed upon by patient/family. SUBJECTIVE: Pt reports B lower abdominal pain began about 3 months ago. Pt reports last time she tried to use a tampon, she ended up passing out from pain. Patient Goals: improve pain and bladder function Functional Limitations: bladder function, altered sexual function Prior Level of Function: Independent without limitations Relevant History Past Relevant Medical Conditions: (see note) Past Relevant Surgical Conditions: (see note) Employment: Student Recreation / Current Exercise: stretching PAST MEDICAL HISTORY Diagnosis Date Menstrual periods, abnormal 06/2015 NEGATIVE HISTORY OF 2013 Normal Color Vision Pneumonia 11/2013 resolved Sepsis (HCC) 12/16/2013 resolved. Admitted for observation [facility] after 2 day stay PAST SURGICAL HISTORY Procedure Laterality Date PAST SURGICAL HISTORY OF teeth removed Intake Information: Prescription present Previous Treatment: None Falls Interview: No positive findings with falls interview Aquatic Screen: No Pain: Pain Pain Level: 2 Pain Location: Abdomen Description: Sore Frequency: Intermittent Post Treatment Pain Post Treatment Pain Level: No Change PROMIS Scales Higher is Better 07/03/2022 Phys Func - Score 54 (within normal limits) Phys Func - Percentile 66 % Self-Eff Symptom - Score 51 (Average) Self-Eff Symptom - Percentile 54 % T-scores: mean of general population = 50. 5 points is clinically meaningfully difference Percentiles provide an indication of how the patient's score ranks in relation to the general population. Higher percentile rankings indicate better function/quality of life. 50th percentile is the average of the general population and indicates half of respondents had a worse score. OBJECTIVE MEASURES WITH LEVEL OF FUNCTION: Pelvic Floor Pregnancies: 0 Pain with penetration: Superficial, Avoids tampon use, Pain with internal medical exam Urinary/Bowel History : Urinary History, Bowel History Difficulty starting stream: Sometimes Incomplete emptying: Sometimes Stress Incontinence: No Urgency: No Nocturia (times per night): (0-1) Daytime Frequency (hours): 2-3 Fluid Intake: Water, Tea, Juice, Pop/Diet Pop (8 oz measurements) Water : 4-6 Tea : 5 Juice : 1 Pop/Diet Pop : 1 Difficulty evacuating / Excessive Straining: No Incomplete emptying: No Bowel Movement Frequency: 2x/day Fecal incontinence: No Pelvic Floor Muscle Assessment Consent for pelvic assessment/testing and treatment: Patient was educated regarding pelvic floor physical therapy assessment/treatment which may include pelvic floor and girdle muscle assessment externally or internally (vaginal or rectal approach)., Patient verbalized consent for the above treatment approaches today. Patient understands they have control of the treatment and an opportunity to stop treatment at any time. Pelvic Floor Muscle Assessment: PERFECT, Muscle Dynamics Power: 4 Endurance: 10 Fast Reps: 10 Contracton Pressure: Strong squeeze, full circumference of fingers compressed Duration of Contraction: >3 seconds Recruitment of pelvic floor muscles: Coordinated Range of Motion: Decreased Ability to Lengthen pelvic floor: Difficulty at first, but improves with cueing and practice Diaphragmatic Breathing : Fair Pelvic Floor Manual Assessment Pelvic Floor Tenderness/Hyperactivity: Tested Vaginally in Tested Vaginally in : Supine/hooklying Superficial transverse perineal: Bilateral (2/2) Deep transverse perineal: Bilateral (2/2) Iliococcygeus: Bilateral (/) Pubococcygeus: Bilateral (/) LE AROM R LE AROM: WFL L LE AROM: WFL LE Flexibility Flexibility: Hamstring Flexibility, Hip Adductor, Hip Internal Rotation Flexibility, Hip External Rotation Flexibility R Hamstring Flexibility: WNL L Hamstring Flexibility: WNL R Adductor Flexibility: WNL L Adductor Flexibility: WNL R Hip Internal Rotation Flexibility: WNL L Hip Internal Rotation Flexibility: WNL R Hip External Rotation Flexibility: WNL L Hip External Rotation Flexibility: WNL LE Strength Trunk Strength: Lower Abdominals: 5/5 R LE Strength: 5/5 L LE Strength: 5/5 Tissue Restriction/Tenderness Scale: 1= mild, 2= moderate, 3= severe Education: Education Learning Preferences: Demonstration, Explanation, Performance, Printed Materials Barriers: None Learning/educational needs: Home exercise program, Plan of Care Education Provided: Yes, see treatment interventions for education provided Education Provided To: Patient Education Mode/Type: Demonstration, Explanation/Discussion, Literature/Printed Materials, Performance Response to Education/Teach Back: States/Identifies, Return Demonstration TREATMENT: PT Treatment Interventions: Therapeutic Exercise, Self-Assisted Management Evaluation Therapeutic Exercise: 1: *diaphragmatic breathing 2: *supine adductor stretch, [id number] 3: *PF lengthening, 2x10 Skilled Intervention: Patient was educated in proper exercise technique and purpose for exercises. Reviewed and educated patient on additions/changes for home exercise program as above (*). Skilled judgment was provided in selection of appropriate interventions. Provided written instruction for home exercise program to facilitate proper performance and compliance. Self-Assisted Management: 1: Reviewed pelvic floor anatomy and function with 3D pelvic model 2: Reviewed typical vs dysfunctional bladder health 3: Reviewed bladder irritants, importance of water intake 4: Reviewed toileting techniques to start a stream of urine, fully empty bladder 5: Reviewed impact of stress on mm tension, mm tension on pain: *body scanning 6: Reviewed purpose and function of vaginal dilators for internal self-STM Skilled Intervention: Skilled judgment in the selection of proper modification for activity of daily living/home management based on clinical presentation, deficits, and needs. Provided written instruction for activities of daily living techniques to facilitate proper performance and compliance. Billing * Evaluation Low Complexity: 1 Unit Therapeutic Exercise Treatment Minutes: 8 Self-Care/Home Management Treatment Minutes: 17 Total Treatment Time Minutes (timed/untimed): 49 Micheline Weston PT documented in this encounter [facility] 07-03-2022 Note HNO ID: [id number] Author: María Yañez APRN.CCIE Service: ? Author Type: Nurse Practitioner Type: Progress Notes Filed: 07/03/2022 3:36 PM Note Text: Subjective Ear Pain Associated symptoms include congestion. Pertinent negatives include no chills, coughing, fever, myalgias or sore throat. Edgar Nava is a 17 year old female who presents with right ear pain for the past 4 days. States the pain is in the near the outer ear canal and not inside the ear. She denies fever. She has had some recent nasal congestion. She has not taken any medication at home for this. She has not had a fever. Review of Systems Constitutional: Negative for chills and fever. HENT: Positive for congestion and ear pain. Negative for ear discharge, hearing loss and sore throat. Respiratory: Negative for cough. Cardiovascular: Negative. Musculoskeletal: Negative for myalgias. BP 112/80 Pulse 94 Temp 37.2 ?C (98.9 ?F) Resp 21 Wt 91.5 kg (201 lb 12.8 oz) LMP 04/21/2022 (Approximate) SpO2 100% PAST MEDICAL HISTORY Diagnosis Date Menstrual periods, abnormal 06/2015 NEGATIVE HISTORY OF 2013 Normal Color Vision Pneumonia 11/2013 resolved Sepsis (HCC) 12/16/2013 resolved. Admitted for observation [facility] after 2 day stay PAST SURGICAL HISTORY Procedure Laterality Date PAST SURGICAL HISTORY OF teeth removed ALLERGIES Patient has no known allergies. MEDICATIONS FLUoxetine (PROZAC) 10 mg capsule Take 1 capsule by mouth once daily. L-Norgest and E Estradiol-E Estrad (SEASONIQUE) 0.15 mg-30 mcg (84)/10 mcg (7) Take 1 tablet by mouth once daily. acetic acid (VOSOL) 2 % otic solution Use 4 Drops in the right ear three times daily. FAMILY HISTORY Problem Relation Age of Onset Blood Clots Maternal Grandmother genetic clotting disorder - aorta replaced, screens Aneurysm Maternal Grandmother Blood Clots Mother None Other Social History Tobacco Use Smoking status: Never Smokeless tobacco: Never Vaping Use Vaping Use: Some days Substance Use Topics Alcohol use: Yes Comment: occasionally Drug use: Yes Types: Marijuana Objective Physical Exam Vitals and nursing note reviewed. Constitutional: General: She is not in acute distress. Appearance: Normal appearance. She is not toxic-appearing. HENT: Right Ear: Tympanic membrane, ear canal and external ear normal. Tenderness present. Left Ear: Tympanic membrane, ear canal and external ear normal. Ears: Nose: Nose normal. Mouth/Throat: Mouth: Mucous membranes are moist. Dentition: Dental caries present. Pharynx: Oropharynx is clear. Uvula midline. No oropharyngeal exudate or posterior oropharyngeal erythema. Cardiovascular: Rate and Rhythm: Normal rate and regular rhythm. Heart sounds: Normal heart sounds. Pulmonary: Effort: Pulmonary effort is normal. No respiratory distress. Breath sounds: Normal breath sounds. No wheezing or rales. Musculoskeletal: Cervical back: Neck supple. Lymphadenopathy: Cervical: No cervical adenopathy. Skin: General: Skin is warm and dry. Findings: No erythema or rash. Neurological: Mental Status: She is alert. ASSESSMENT/PLAN: 1. Acute otitis externa of right ear, unspecified type - ICD9: 380.10, ICD10: H60.501 - ACETIC ACID 2 % EAR SOLUTION - Follow-up with your PCP in 3-5 days if symptoms have not improved or sooner if symptoms worsen - Discussed red flags and need for immediate medical evaluation if any occur. - Discussed supportive care treatment with fluids, rest and analgesia. - Discussed expected course of illness María Yañez APRN.[facility] 07-03-2022 History of Present illness Narrative Images from the original note were not included. Subjective Ear Pain Associated symptoms include congestion. Pertinent negatives include no chills, coughing, fever, myalgias or sore throat. Edgar Nava is a 17 year old female who presents with right ear pain for the past 4 days. States the pain is in the near the outer ear canal and not inside the ear. She denies fever. She has had some recent nasal congestion. She has not taken any medication at home for this. She has not had a fever. Review of Systems Constitutional: Negative for chills and fever. HENT: Positive for congestion and ear pain. Negative for ear discharge, hearing loss and sore throat. Respiratory: Negative for cough. Cardiovascular: Negative. Musculoskeletal: Negative for myalgias. BP 112/80 Pulse 94 Temp 37.2 C (98.9 F) Resp 21 Wt 91.5 kg (201 lb 12.8 oz) LMP 04/21/2022 (Approximate) SpO2 100% PAST MEDICAL HISTORY Diagnosis Date Menstrual periods, abnormal 06/2015 NEGATIVE HISTORY OF 2013 Normal Color Vision Pneumonia 11/2013 resolved Sepsis (HCC) 12/16/2013 resolved. Admitted for observation [facility] after 2 day stay PAST SURGICAL HISTORY Procedure Laterality Date PAST SURGICAL HISTORY OF teeth removed ALLERGIES Patient has no known allergies. MEDICATIONS FLUoxetine (PROZAC) 10 mg capsule Take 1 capsule by mouth once daily. L-Norgest and E Estradiol-E Estrad (SEASONIQUE) 0.15 mg-30 mcg (84)/10 mcg (7) Take 1 tablet by mouth once daily. acetic acid (VOSOL) 2 % otic solution Use 4 Drops in the right ear three times daily. FAMILY HISTORY Problem Relation Age of Onset Blood Clots Maternal Grandmother genetic clotting disorder - aorta replaced, screens Aneurysm Maternal Grandmother Blood Clots Mother None Other Social History Tobacco Use Smoking status: Never Smokeless tobacco: Never Vaping Use Vaping Use: Some days Substance Use Topics Alcohol use: Yes Comment: occasionally Drug use: Yes Types: Marijuana Objective Physical Exam Vitals and nursing note reviewed. Constitutional: General: She is not in acute distress. Appearance: Normal appearance. She is not toxic-appearing. HENT: Right Ear: Tympanic membrane, ear canal and external ear normal. Tenderness present. Left Ear: Tympanic membrane, ear canal and external ear normal. Ears: Nose: Nose normal. Mouth/Throat: Mouth: Mucous membranes are moist. Dentition: Dental caries present. Pharynx: Oropharynx is clear. Uvula midline. No oropharyngeal exudate or posterior oropharyngeal erythema. Cardiovascular: Rate and Rhythm: Normal rate and regular rhythm. Heart sounds: Normal heart sounds. Pulmonary: Effort: Pulmonary effort is normal. No respiratory distress. Breath sounds: Normal breath sounds. No wheezing or rales. Musculoskeletal: Cervical back: Neck supple. Lymphadenopathy: Cervical: No cervical adenopathy. Skin: General: Skin is warm and dry. Findings: No erythema or rash. Neurological: Mental Status: She is alert. ASSESSMENT/PLAN: 1. Acute otitis externa of right ear, unspecified type - ICD9: 380.10, ICD10: H60.501 - ACETIC ACID 2 % EAR SOLUTION - Follow-up with your PCP in 3-5 days if symptoms have not improved or sooner if symptoms worsen - Discussed red flags and need for immediate medical evaluation if any occur. - Discussed supportive care treatment with fluids, rest and analgesia. - Discussed expected course of illness María Yañez APRN.CCIE documented in this encounter [facility] 07-03-2022 Instructions María Yañez APRN.CNP - 07/03/2022 3:33 PM EST ASSESSMENT/PLAN: 1. Acute otitis externa of right ear, unspecified type - ICD9: 380.10, ICD10: H60.501 - ACETIC ACID 2 % EAR SOLUTION - Follow-up with your PCP in 3-5 days if symptoms have not improved or sooner if symptoms worsen - Discussed red flags and need for immediate medical evaluation if any occur. - Discussed supportive care treatment with fluids, rest and analgesia. - Discussed expected course of illness María Yañez APRN.CCIE documented in this encounter [facility] 06-13-2022 Note HNO ID: [id number] Author: Yenifer Browne MD Service: ? Author Type: Physician Type: Progress Notes Filed: 06/13/2022 2:00 PM Note Text: The patient was seen for the issues discussed below. Problem list and history reviewed. Allergies reviewed. Medications reviewed. Immunizations reviewed. HISTORY: see history section below PHYSICAL EXAM: GENERAL: alert, well appearing, in no distress LEFT EYE: no drainage noted, no conjunctival injection noted; RIGHT EYE: no drainage noted, no conjunctival injection noted; NO ADDITIONAL EYE FINDINGS LEFT EAR: pinna normal, auditory canal normal, tympanic membrane clear, no effusion noted, RIGHT EAR: pinna normal, auditory canal normal, tympanic membrane clear, no effusion noted NOSE/SINUSES: nares normal, mucosa normal, no drainage noted OROPHARYNX: lips without lesions noted, gums/mucosa normal, oropharynx without erythema or exudates NECK/ADENOPATHY: neck supple, no adenopathy noted CHEST/LUNGS: lungs clear to auscultation CARDIOVASCULAR: regular rate and rhythm, capillary refill less than 2 seconds ABDOMEN: soft, nontender, bowel sounds normal, no masses, no organomegaly, abdomen nondistended SKIN: normal color, no rash, no jaundice, moist mucous membranes, turgor within normal limits GENERAL RECOMMENDATIONS: - Issues discussed in detail. - Symptom relief measures as needed. - Prescriptions, if ordered, are listed below. - Labs and/or X-rays, if ordered or obtained, are listed below. If the final results are not available at the conclusion of this visit, then additional recommendations may be made based on the final results. Note that all x-rays are reviewed by a radiologist before being considered final. - EKG, if ordered or obtained, is reviewed by a rabbit breeder before being considered final. Additional recommendations may be made based on the final results. - Return to clinic should current symptoms (if present) worsen, other problems develop, or as needed. ADDITIONAL AND DICTATED PORTION: ADDITIONAL HISTORY The following Nursing History was reviewed with the family: Patient presents with: Anxiety: Anxiety / Anger concerns. Per pt, pt had been taking Zoloft around a year ago and stopped taking the medication approx 5 mos ago due to feeling emotionless . Pt now experiencing anger and anxiety symptoms. As noted above, patient previously had been showing improvement on Zoloft 25 mg daily. When this was increased to 50 mg daily she developed a feeling of emotionless. Therefore she discontinued the medication. This was in October of last year. She is currently taking criminology classes and online college. She will be restarting [id number] classes next semester. She is finding that her anxiety is again giving her difficulty accomplishing day-to-day activities. No issues with depression. No self-harm thoughts/suicidal ideation. SCARED Rating Scale Panic/somatic 18 cutoff equals 7 Generalized anxiety 12 cutoff equals 9 Separation 10 cutoff equals 5 Social 14 cutoff equals 8 School avoidance 0 cutoff equals 3 TOTAL 54 cutoff equals 25 PHQ-9 score today was 5 with questions 12 and 13 which screen for suicidal ideation both answered NO. Review of systems negative for fevers. No eye, ear, nose, throat complaints. No cough, wheezing, shortness of breath. No vomiting, diarrhea, abdominal pain. No rash or edema. ACTIVE PROBLEM LIST Mild Persistent Asthma Without Complication Acne Depression Anxiety Seborrhea Abdominal Pain Fingernail Abnormalities Abdominal Pain, Right Lower Quadrant PAST MEDICAL HISTORY Diagnosis Date Menstrual periods, abnormal 06/2015 NEGATIVE HISTORY OF 2013 Normal Color Vision Pneumonia 11/2013 resolved Sepsis (HCC) 12/16/2013 resolved. Admitted for observation [facility] after 2 day stay PAST SURGICAL HISTORY Procedure Laterality Date PAST SURGICAL HISTORY OF teeth removed ADDITIONAL EXAM / OTHER INFORMATION none ADDITIONAL IMPRESSION / PLAN Anxiety. Patient wishes to restart SSRI medication. Due to issues with Zoloft, we will start Prozac 10 mg daily. Follow-up in the office in 1 month. Dosage will need to be titrated appropriately. We reinforced that the medication needs to be given on a consistent daily basis. We discussed that should she develop any self-harm thoughts/suicidal ideation then she should be seen immediately by a crisis evaluation team such as in the emergency room. We also discussed that treatment of anxiety does not directly affect anger issues. This would be handled through a psychological approach such as counseling. I spent a total of 30-39 minutes on the date of service. This included preparing to see the patient; [id number] patient care; obtaining and/or reviewing separately obtained histor (more content not included)... [facility] 05-21-2022 Miscellaneous Notes Patient notified. Lyudmila Rizo RN Recommend tylenol & ibuprofen for the pain. Also can try a warm bath. Ken Richards MD Patient calling for u/s results because she has had more severe pain today. Rating bilateral lower pelvic pain an 8/10 on the pain scale. It woke her up from her sleep today and has been constant since. Ibuprofen has not helped at all with it today. u/s was don yesterday, but is not read yet. Please advise. Leticia Sher RN documented in this encounter [facility] 05-14-2022 History of Present illness Narrative Edgar Nava is a 16 year old female who presents for problem visit. HPI: Patient presents with worsening pelvic pain. A full bladder & laying on her back makes the pain worse. Denies dysuria. Ibuprofen dulls the pain. She is not able to use tampons as they are uncomfortable. OB History T0 L0 SAB0 IAB0 Ectopic0 Multiple0 Live Births0 Osteologist History LMP: 04/21/2022 (Approximate), Having periods Age at Menarche: Age at First : Age at Menopause: Osteologist History Comments: Sexual Activity: Yes; Male Contraception: Pill PAST MEDICAL HISTORY Diagnosis Date Menstrual periods, abnormal 06/2015 NEGATIVE HISTORY OF 2013 Normal Color Vision Pneumonia 11/2013 resolved Sepsis (HCC) 12/16/2013 resolved. Admitted for observation [facility] after 2 day stay PAST SURGICAL HISTORY Procedure Laterality Date PAST SURGICAL HISTORY OF teeth removed FAMILY HISTORY Problem Relation Age of Onset Blood Clots Maternal Grandmother genetic clotting disorder - aorta replaced, screens Aneurysm Maternal Grandmother Blood Clots Mother None Other Social History Tobacco Use Smoking status: Never Smokeless tobacco: Never Vaping Use Vaping Use: Some days Substance Use Topics Alcohol use: Yes Comment: occasionally Drug use: Yes Types: Marijuana Current Outpatient Medications Medication Sig benzonatate (TESSALON PERLES) 100 mg capsule Take 1 capsule by mouth three times daily as needed for cough. sertraline (ZOLOFT) 50 mg tablet Take 2 tablets by mouth once daily. L-Norgest and E Estradiol-E Estrad (SEASONIQUE) 0.15 mg-30 mcg (84)/10 mcg (7) Take 1 tablet by mouth once daily. ketoconazole (NIZORAL) 2 % shampoo Shampoo twice weekly (at least 3 days between each shampoo) for 8 weeks. Then use as needed. albuterol HFA (PROAIR HFA) 90 mcg/actuation inhaler Inhale 2 Puffs as instructed every 6 hours as needed. No current facility-administered medications for this visit. Allergies As of Date: 05/14/2022 (No Known Allergies) Fully Assessed 05/03/2022 REVIEW OF SYSTEMS Abdomen: No bloating, early satiety, indigestion, or increased flatulence. No abdominal pain, nausea, vomiting, diarrhea, or constipation. Bladder: No dysuria, gross hematuria, urinary frequency, urinary urgency, or incontinence. Allergies and current medication updated:Yes EXAM: BP 100/70 Wt 195 lb (88.5kg) LMP 04/21/2022 GENERAL: pleasant, female in no apparent distress CHEST: Normal inspiratory effort ABDOMEN: soft, non-tender, and no masses PELVIC: external genitalia normal, normal Bartholin's glands, urethra, [place] Mango's glands, no vulvar lesions, no cervical lesions, normal appearing perineal body and perianal region BIMANUAL: uterus normal size, shape and consistency, no adnexal masses, and mildly tender diffusely NEURO: alert and oriented x3,exam grossly non-focal EXTREMITIES: normal ASSESSMENT AND PLAN: 16yo female with pelvic & vaginal pain Check pelvic US Consult to pelvic floor PT for suspected pelvic floor tension Medical Decision Making: Problems: Low: Acute, uncomplicated illness or injury Data: Unique test(s) ordered: 2 Risk: Low: Low risk from testing/treatment Medical Decision Making Level: 3 - Low Ken Richards MD documented in this encounter [facility] 05-14-2022 Miscellaneous Notes Called patient and schedule appointment with KJ per her request. Pelvic pain has gotten worse since appointment on 05/03/22. Leticia Sher RN documented in this encounter [facility] 05-06-2022 Miscellaneous Notes Patient notified and voiced understanding. Nalini Byrd RN [facility] pt. Please let the pt know that all her testing was negative for infection. She can follow up with [facility]ARY[facility] as needed. Reina Haywood APRN.LISA documented in this encounter [facility] 05-03-2022 History of Present illness Narrative Edgar Nava is a 16 year old female who presents for problem visit. HPI: Patient presents with pelvic pain. It started 9 days ago. The first 3 days she had sharp pelvic pains pretty consistently. It resolved & now is coming back. Urination seems to consistently trigger the pain. Ibuprofen helps the pain a little. Patient reports vaginal discharge with odor. OB History T0 L0 SAB0 IAB0 Ectopic0 Multiple0 Live Births0 Osteologist History LMP: 04/21/2022 (Approximate), Having periods Age at Menarche: Age at First : Age at Menopause: Osteologist History Comments: Sexual Activity: Yes; Male Contraception: Pill PAST MEDICAL HISTORY Diagnosis Date Menstrual periods, abnormal 06/2015 NEGATIVE HISTORY OF 2013 Normal Color Vision Pneumonia 11/2013 resolved Sepsis (HCC) 12/16/2013 resolved. Admitted for observation [facility] after 2 day stay PAST SURGICAL HISTORY Procedure Laterality Date PAST SURGICAL HISTORY OF teeth removed FAMILY HISTORY Problem Relation Age of Onset Blood Clots Maternal Grandmother genetic clotting disorder - aorta replaced, screens Aneurysm Maternal Grandmother Blood Clots Mother None Other Social History Tobacco Use Smoking status: Never Smokeless tobacco: Never Vaping Use Vaping Use: Some days Substance Use Topics Alcohol use: Yes Comment: occasionally Drug use: Yes Types: Marijuana Current Outpatient Medications Medication Sig benzonatate (TESSALON PERLES) 100 mg capsule Take 1 capsule by mouth three times daily as needed for cough. sertraline (ZOLOFT) 50 mg tablet Take 2 tablets by mouth once daily. L-Norgest and E Estradiol-E Estrad (SEASONIQUE) 0.15 mg-30 mcg (84)/10 mcg (7) Take 1 tablet by mouth once daily. ketoconazole (NIZORAL) 2 % shampoo Shampoo twice weekly (at least 3 days between each shampoo) for 8 weeks. Then use as needed. albuterol HFA (PROAIR HFA) 90 mcg/actuation inhaler Inhale 2 Puffs as instructed every 6 hours as needed. No current facility-administered medications for this visit. Allergies As of Date: 05/03/2022 (No Known Allergies) Fully Assessed 05/03/2022 Allergies and current medication updated:Yes EXAM: BP 114/62 Wt 194 lb (88.0kg) LMP 04/21/2022 GENERAL: pleasant, female in no apparent distress PELVIC: external genitalia normal, normal Bartholin's glands, urethra, [place] Mango's glands, no vulvar lesions, no cervical lesions, good vaginal support, tsai discharge present, normal appearing perineal body and perianal region ASSESSMENT AND PLAN: 16yo female with vaginal odor & pelvic pain UA & urine culture Vaginal infection panel ordered Medical Decision Making: Problems: Moderate: New problem with uncertain prognosis Data: Unique test(s) ordered: 3+ Risk: Low: Low risk from testing/treatment Medical Decision Making Level: 4 - Moderate Ken Richards MD documented in this encounter [facility] 02-20-2022 Instructions Coby Neville APRN.CCIE - 02/20/2022 10:48 AM EDT Images from the original note were not included. Claritin and flonase Adult Sinusitis Patient Education What is Sinusitis? Sinusitis [[id number]-[id number]-tis] is inflammation of the sinuses or swelling of the lining of the sinus cavity or nose. During an infection the sinuses become blocked with fluid causing swelling of the lining of the sinuses. Symptoms: (viral and bacterial infections) Stuffy nose Runny nose Postnasal drip Fever Toothache Headache Tiredness Cough Sore throat Face and head pressure and or pain Common causes: 98% of sinus infections are viral caused by viruses. Risk Factors of Sinusitis Include: Allergies, air pollution, indoor humidity and outdoor temperature changes, andstructural changes in the nose may contribute to sinus pain, pressure and congestion. When to get help? Temperature greater than 100.4 F Symptoms lasting more than 10 days or worsening symptoms greater than 7-10 days. If you do not improve or worsen after a course of antibiotics, you should be re-examined. Diagnosis and Treatment: Your healthcare provider will ask a number of questions about your symptoms and how long they have occurred. If symptoms of sinusitis persist greater than 10 days, it is possible you have a bacterial sinus infection and an antibiotic is prescribed. If it is viral, antibiotics will not help. You may be instructed to take [id number]-[id number] medications for symptoms. including fever reducers acetaminophen or ibuprofen, nasal saline spray, cough and cold preparations and decongestants as prescribed by the physician, nurse practitioner or physician orthodontist assistant. Self-Care and Prevention: Rest Fluids for hydration Good hand washing Humidifier Avoid smoking and exposure to second hand smoke Avoid sick contacts documented in this encounter [facility] 02-20-2022 History of Present illness Narrative Telemedicine Telephone note as patient unable to connect Location of patient: [place] History of Present Illness Edgar Nava is a 16 year old year old female who presents for the past 3 days with symptoms that are: Home covid Vax 3 pfizer Fever 100 Cough nasal congestion waxing and waning. Symptoms include: Positive for Fever, Chills/Sweats, Nasal congestion, and Nausea, Negative for SOB and DALE Oral intake: normal Tobacco use: No Second hand smoke exposure: No Recent exposure to strep:No Sick contacts: family Recent travel: none OTC meds/remedies that patient has tried: PAST MEDICAL HISTORY Diagnosis Date Menstrual periods, abnormal 06/2015 NEGATIVE HISTORY OF 2013 Normal Color Vision Pneumonia 11/2013 resolved Sepsis (HCC) 12/16/2013 resolved. Admitted for observation [facility] after 2 day stay PAST SURGICAL HISTORY Procedure Laterality Date PAST SURGICAL HISTORY OF teeth removed FAMILY HISTORY Problem Relation Age of Onset Blood Clots Maternal Grandmother genetic clotting disorder - aorta replaced, screens Aneurysm Maternal Grandmother Blood Clots Mother None Other Social History Tobacco Use Smoking status: Never Smokeless tobacco: Never Vaping Use Vaping Use: Never used Substance Use Topics Alcohol use: Yes Comment: occasionally Drug use: Yes Types: Marijuana Current Outpatient Medications Medication Sig sertraline (ZOLOFT) 50 mg tablet Take 2 tablets by mouth once daily. L-Norgest and E Estradiol-E Estrad (SEASONIQUE) 0.15 mg-30 mcg (84)/10 mcg (7) Take 1 tablet by mouth once daily. ketoconazole (NIZORAL) 2 % shampoo Shampoo twice weekly (at least 3 days between each shampoo) for 8 weeks. Then use as needed. albuterol HFA (PROAIR HFA) 90 mcg/actuation inhaler Inhale 2 Puffs as instructed every 6 hours as needed. No current facility-administered medications for this visit. ALLERGIES No Known Allergies Patient unable to connect Speaking in complete sentences No respiratory distress noted Sounds nasal congestion (J06.9) Acute URI (primary encounter diagnosis) Claritin flonase supportive care Call or return in 5-7 days if no improving or worsening Patient's request for medication is as follows: Requested Prescriptions Signed Prescriptions Disp Refills benzonatate (TESSALON PERLES) 100 mg capsule 20 capsule 0 Sig: Take 1 capsule by mouth three times daily as needed for cough. Prescription(s) as above. Please process accordingly. Coby Neville APRN.CNP -Tylenol (generic acetaminophen) 500 mg-2 tabs every 8 hrs. as needed for fever and aches -[email or web address] This link shares information about when antibiotics may help and when they may not. - Red flags discussed for need for in person care - All questions answered Coby Neville APRN.CCIE If you let us know who your primary care provider is, we will send them a notification of today s visit through our electronic medical records system. Since not all providers have access to our notifications, we strongly encourage you to share the following record of today s visit with your primary care provider at your next visit. This will help in providing you the best care. If you do not have an established Primary Care physician and would like to continue care with a [facility] Virtual Primary Care physician, please ask your provider to place a Establish Primary Care order. Use [employer] to manage your care, wherever you are, 18/11, on your mobile device or computer. [employer] connects you to [employer] so you can access all your health information in one place and also schedule and request virtual appointments with primary care providers. documented in this encounter [facility] 12-03-2021 Instructions Gautam Hudson APRN.CNP - 12/03/2021 11:20 AM EDT How to Manage Common Symptoms Associated with COVID for Adults Fever- Fever is a temperature over 100.4 F and can occur when the body is fighting an infection. To help treat a fever: Drink plenty of fluids and stay well hydrated. Eat small amounts of easy to digest food. Rest. Your body needs rest to recover, but getting up and moving around the house frequently is a good idea. You should try to continue doing your normal daily activities (bathing, toileting, grooming, cooking), though you will probably feel tired, and need to rest often. Avoid any heavy activity or exercise, as this will increase your body temperature. Dress in light clothing and stay covered in a light sheet. Keep the room temperature cool. Take a slightly warm (not cold or cool) bath, or apply damp washcloths to the forehead and wrists. Cough- Cough is a common symptom associated with COVID and can be bothersome. To help treat a cough: Stay well hydrated. Try warm water or tea with lemon and/or honey to help soothe the cough. Use a humidifier to add moisture to the air. Try a product with menthol, like a cough drop or a rub for your chest such as Vicks, which can help reduce cough. Try cough drops. Avoid smoking and other strong odors or perfumes. Try breathing exercises to keep your lungs open and clear. Take a big deep breath through your nose and hold for 5 seconds before slowly releasing. Repeat frequently, while you are awake. Congestion- Runny nose or nasal congestion can occur with COVID. Treatment can help relieve symptoms: Try OTC nasal saline spray, or nasal saline rinse to relieve mucus congestion. Nasal strips can help keep nasal passages open, to increase airflow. Elevating your head with an extra pillow in bed can help reduce congestion. Using a humidifier can increase moisture in the air, and make breathing easier. Sore Throat- Another common symptom with COVID, can be managed at home by: Stay well hydrated. Gargle with salt water - mix teaspoon salt with 1 cup of warm water and gargle. This helps to loosen mucus in the back of the throat and may reduce discomfort. Try ice chips, popsicles or lozenges to soothe the throat. Nausea/Vomiting/Diarrhea- These are common symptoms, and staying hydrated is most important. If you are nauseous or vomiting, start with small sips of water every 10-15 minutes and increase as tolerated. You can try sucking an ice cube too. If tolerating, you can try pedialyte or Gatorade, or flat sprite or suri-liza. Start slowly and increase as you are able to. Instead of meals, try smaller, more frequent snacks. Try eating bland foods like crackers, toast, rice, and applesauce. Avoid spicy, greasy or fried foods and dairy containing foods. Even if you aren't feeling hungry due to lack of smell or taste, it is important to try to take in some food when you are able. After drinking and eating, rest in an upright position for up to two hours as needed to help decrease nauseous feelings. Try closing your eyes, avoid moving and watching TV. Avoid strong odors that can make you feel more nauseated. When to seek emergency medical attention Look for emergency warning signs for COVID-19. If having any of these symptoms, seek emergency medical care immediately: Trouble breathing Persistent pain or pressure in the chest New confusion Inability to wake or stay awake Bluish lips or face *This list is not all possible symptoms. Please call your medical provider for any other symptoms that are severe or concerning to you. documented in this encounter [facility] 12-03-2021 History of Present illness Narrative Subjective HPI Appearing female presents urgent care urgent care chief complaint flulike symptoms. Duration of symptoms 4 days. Associated symptoms sore throat transient fever body aches chills runny nose headache and cough. States mother has similar signs and symptoms. No known OTC medication use today. Denies any significant pain. Denies history of recent COVID-19. She is vaccinated. Denies any high fevers productive cough chest pain shortness of breath pleuritic pain hemoptysis nausea vomiting abdominal pain rashes change in bowel or bladder meds. Past medical history prescription medication use allergies reviewed. .Patient presents with: Sore Throat: Fever, runny nose, cough x 4 days PAST MEDICAL HISTORY Diagnosis Date Menstrual periods, abnormal 06/2015 NEGATIVE HISTORY OF 2013 Normal Color Vision Pneumonia 11/2013 resolved Sepsis (HCC) 12/16/2013 resolved. Admitted for observation [facility] after 2 day stay PAST SURGICAL HISTORY Procedure Laterality Date PAST SURGICAL HISTORY OF teeth removed ALLERGIES Patient has no allergy information on record. MEDICATIONS sertraline (ZOLOFT) 50 mg tablet Take 2 tablets by mouth once daily. L-Norgest and E Estradiol-E Estrad (SEASONIQUE) 0.15 mg-30 mcg (84)/10 mcg (7) Take 1 tablet by mouth once daily. ketoconazole (NIZORAL) 2 % shampoo Shampoo twice weekly (at least 3 days between each shampoo) for 8 weeks. Then use as needed. albuterol HFA (PROAIR HFA) 90 mcg/actuation inhaler Inhale 2 Puffs as instructed every 6 hours as needed. FAMILY HISTORY Problem Relation Age of Onset Blood Clots Maternal Grandmother genetic clotting disorder - aorta replaced, screens Aneurysm Maternal Grandmother Blood Clots Mother None Other Social History Tobacco Use Smoking status: Never Smokeless tobacco: Never Vaping Use Vaping Use: Never used Substance Use Topics Alcohol use: Yes Comment: occasionally Drug use: Yes Types: Marijuana BP 112/74 Pulse 85 Temp 36.7 C (98.1 F) Resp 21 Wt 91.1 kg (200 lb 12.8 oz) LMP 10/05/2021 SpO2 98% Resp 18 Review of Systems Constitutional: Positive for chills, fever and malaise/fatigue. HENT: Positive for congestion and sore throat. Negative for ear discharge, ear pain and sinus pain. Eyes: Negative for blurred vision, pain, discharge and redness. Respiratory: Positive for cough. Negative for hemoptysis, sputum production, shortness of breath, wheezing and stridor. Cardiovascular: Negative for chest pain. Gastrointestinal: Negative for abdominal pain, diarrhea, nausea and vomiting. Musculoskeletal: Positive for myalgias. Skin: Negative for itching and rash. Neurological: Positive for headaches. Negative for dizziness. Objective Physical Exam Constitutional: General: She is not in acute distress. Appearance: She is not diaphoretic. HENT: Head: Normocephalic. Nose: Congestion present. Mouth/Throat: Mouth: Mucous membranes are moist. Pharynx: Oropharynx is clear. No oropharyngeal exudate or posterior oropharyngeal erythema. Eyes: Conjunctiva/sclera: Conjunctivae normal. Pupils: Pupils are equal, round, and reactive to light. Cardiovascular: Rate and Rhythm: Normal rate and regular rhythm. Heart sounds: Normal heart sounds. Pulmonary: Effort: Pulmonary effort is normal. No tachypnea, accessory muscle usage or respiratory distress. Breath sounds: Normal breath sounds. No stridor. No wheezing, rhonchi or rales. Abdominal: General: There is no distension. Palpations: Abdomen is soft. Tenderness: There is no abdominal tenderness. There is no guarding or rebound. Musculoskeletal: Cervical back: Normal range of motion and neck supple. No rigidity or tenderness. Lymphadenopathy: Cervical: No cervical adenopathy. Skin: General: Skin is warm and dry. Neurological: Mental Status: She is alert and oriented to person, place, and time. ASSESSMENT/PLAN: 1. Viral illness - ICD9: 079.99, ICD10: B34.9 - 2019 CORONAVIRUS Vital signs within normal limits. Nontoxic-appearing. Positive sick contacts. Suspicious of viral etiology at this time. COVID-19 test ordered. Results pending. Alternative diagnosis discussed. Patient was educated on supportive therapies. Patient will follow up with primary care provider as needed. Patient was instructed to immediately proceed to emergency room for any new, worsening, or symptoms lasting longer than anticipated. The patient's clinical presentation is otherwise unremarkable at this time. Based on exam and clinical finding, the patient is stable for discharge. Plan of care was discussed with patient. Patient verbalizes understanding and agrees to plan of care. This note was generated using [employer] software. It may contain errors in wording, punctuation, or spelling. Gautam Hudson APRN.LISA documented in this encounter [facility] 10-26-2021 History of Present illness Narrative The patient was seen for the issues discussed below. Problem list and history reviewed. Allergies reviewed. Medications reviewed. Immunizations reviewed. HISTORY: see history section below PHYSICAL EXAM: GENERAL: alert, well appearing, in no distress LEFT EYE: no drainage noted, no conjunctival injection noted; RIGHT EYE: no drainage noted, no conjunctival injection noted; NO ADDITIONAL EYE FINDINGS LEFT EAR: pinna normal, auditory canal normal, tympanic membrane clear, no effusion noted, RIGHT EAR: pinna normal, auditory canal normal, tympanic membrane clear, no effusion noted NOSE/SINUSES: nares normal, mucosa normal, no drainage noted OROPHARYNX: lips without lesions noted, gums/mucosa normal, oropharynx without erythema or exudates NECK/ADENOPATHY: neck supple, no adenopathy noted CHEST/LUNGS: lungs clear to auscultation CARDIOVASCULAR: regular rate and rhythm, capillary refill less than 2 seconds ABDOMEN: soft, nontender, bowel sounds normal, no masses, no organomegaly, abdomen nondistended SKIN: normal color, no rash, no jaundice, moist mucous membranes, turgor within normal limits GENERAL RECOMMENDATIONS: - Issues discussed in detail. - Symptom relief measures as needed. - Prescriptions, if ordered, are listed below. - Labs and/or X-rays, if ordered or obtained, are listed below. If the final results are not available at the conclusion of this visit, then additional recommendations may be made based on the final results. Note that all x-rays are reviewed by a radiologist before being considered final. - EKG, if ordered or obtained, is reviewed by a rabbit breeder before being considered final. Additional recommendations may be made based on the final results. - Return to clinic should current symptoms (if present) worsen, other problems develop, or as needed. ADDITIONAL & DICTATED PORTION: ADDITIONAL HISTORY The following Nursing History was reviewed with the family: Patient presents with: Med Check: Working well per pt The patient is here for medication recheck. She is currently on Zoloft 100 mg daily. She feels this is working well. No adverse side effects from the medication. No suicidal ideation. She is currently working this summer. SCARED Rating Scale Panic/somatic 19 cutoff equals 7 Generalized anxiety 9 cutoff equals 9 Separation 5 cutoff equals 5 Social 13 cutoff equals 8 School avoidance 1 cutoff equals 3 TOTAL 47 cutoff equals 25 PHQ-9 score in the office today was 8. Questions 12 and 13 (which screen for suicidal ideation) were both answered no. PHQ-9 score in the previsit surveys was 9. Review of systems negative for fevers. No eye, ear, nose, throat complaints. No cough, wheezing, shortness of breath. The patient has a history of ongoing abdominal pain which is being followed by gastroenterology. She also reports that she has been diagnosed with prepolycystic kidney disease. ACTIVE PROBLEM LIST Mild Persistent Asthma Without Complication Acne Depression Anxiety Seborrhea Abdominal Pain Fingernail Abnormalities Abdominal Pain, Right Lower Quadrant PAST MEDICAL HISTORY Diagnosis Date Menstrual periods, abnormal 06/2015 NEGATIVE HISTORY OF 2013 Normal Color Vision Pneumonia 11/2013 resolved Sepsis (HCC) 12/16/2013 resolved. Admitted for observation [facility] after 2 day stay PAST SURGICAL HISTORY Procedure Laterality Date PAST SURGICAL HISTORY OF teeth removed ADDITIONAL EXAM / OTHER INFORMATION none ADDITIONAL IMPRESSION / PLAN Depression adequately controlled. Anxiety suboptimally controlled. Options of increasing the Zoloft dosage (to see if we can obtain further improvement in the anxiety control) or continuing unchanged discussed. Patient would like to continue the dosage unchanged. 3-month supply provided. Patient to call at any time if she is interested in increasing the dosage. Follow-up in 6 months, sooner for any additional concerns. Patient to be seen immediately for any suicidal ideation. I spent a total of 30-39 minutes on the date of service. This included preparing to see the patient; [id number] patient care; obtaining and/or reviewing separately obtained history; performing a medically appropriate examination; counseling and educating the patient/family/caregiver; and completing clinical documentation. As applicable, this also included ordering medications, tests, or procedures; independently interpreting results; communicating results to the patient/family/caregiver; and care coordination (not separately reported). This note was partially generated using [employer] voice recognition system, and there may be some incorrect words, spellings, and punctuation that were not noted in checking the note before saving. Yenifer Browne M.D. documented in this encounter [facility] 10-23-2021 Miscellaneous Notes Pt notified via [facility]. Brenda Mckeon LPN All labs normal Ken Richards MD Pt calling for update on recent labs that she had drawn. Please advise. rBenda Mckeon LPN documented in this encounter [facility] 10-12-2021 Miscellaneous Notes Patient notified Done Ken Richards MD Please place lab orders. We will then contact patient and assist with scheduling lab appointment. Thank you. Lyudmila Rizo RN ----- Message from Ken Richards MD sent at 10/11/2021 11:08 AM EDT ----- US overall normal but does show polycystic ovaries Would she like to proceed with blood work to further evaluate for PCOS? Ken Richards MD documented in this encounter [facility] 10-09-2021 History of Present illness Narrative Edgar Nava is a 16 year old female who presents for control. HPI: Patient reports monthly menses. Flow is still heavy & lasts at least 7 days. She would like something to decreased the flow. Also she is having more pelvic cramps even when she's not on her menses. Patient is sexually active but her mom doesn't know. OB History No obstetric history on file. Osteologist History LMP: 10/05/2021, Having periods Age at Menarche: Age at First : Age at Menopause: Osteologist History Comments: Sexual Activity: Yes; Male Contraception: Pill PAST MEDICAL HISTORY Diagnosis Date Menstrual periods, abnormal 06/2015 NEGATIVE HISTORY OF 2013 Normal Color Vision Pneumonia 11/2013 resolved Sepsis (HCC) 12/16/2013 resolved. Admitted for observation [facility] after 2 day stay PAST SURGICAL HISTORY Procedure Laterality Date PAST SURGICAL HISTORY OF teeth removed FAMILY HISTORY Problem Relation Age of Onset Blood Clots Maternal Grandmother genetic clotting disorder - aorta replaced, screens Aneurysm Maternal Grandmother Blood Clots Mother None Other Social History Tobacco Use Smoking status: Never Smoker Smokeless tobacco: Never Used Vaping Use Vaping Use: Never used Substance Use Topics Alcohol use: Yes Comment: occasionally Drug use: Yes Types: Marijuana Current Outpatient Medications Medication Sig ondansetron orally disintegrating (ZOFRAN ODT) 4 mg disintegrating tablet Take 1 tablet by mouth every 8 hours as needed. sertraline (ZOLOFT) 50 mg tablet Take 2 tablets by mouth once daily. norgestimate 0.25 mg-ethinyl estradiol 35 mcg (SPRINTEC) 0.25-35 mg-mcg per tablet Take 1 tablet by mouth once daily. ondansetron orally disintegrating (ZOFRAN ODT) 4 mg disintegrating tablet Take 1 tablet by mouth every 8 hours as needed for nausea/vomiting. ketoconazole (NIZORAL) 2 % shampoo Shampoo twice weekly (at least 3 days between each shampoo) for 8 weeks. Then use as needed. albuterol HFA (PROAIR HFA) 90 mcg/actuation inhaler Inhale 2 Puffs as instructed every 6 hours as needed. benzonatate (TESSALON PERLES) 100 mg capsule Take 2 capsules by mouth three times daily as needed. (Patient not taking: Reported on 10/09/2021 ) No current facility-administered medications for this visit. Allergies As of Date: 10/09/2021 (No Known Allergies) Fully Assessed 10/09/2021 Allergies and current medication updated:Yes EXAM: BP 98/66 Wt 203 lb (92.1kg) LMP 10/05/2021 GENERAL: pleasant, female in no apparent distress ASSESSMENT AND PLAN: 16yo female with heavy menses & pelvic pain Check pelvic US Declines STD testing & pelvic exam today Discussed R/B/A of options for control that would also treat heavy menses. She wishes to proceed with continuous ocps - use & risks reviewed. Also discussed Mirena IUD & Nexplanon. Medical Decision Making: Problems: Moderate: 1+ chronic illnesses with change Data: Unique test(s) ordered: 1 Risk: Moderate: Drug management Medical Decision Making Level: 4 - Moderate Ken Richards MD documented in this encounter [facility] 09-25-2021 Miscellaneous Notes Patient notified.Ambar Kramer LPN Left message for patient to return call. Bonnie Osuna ----- Message from Evangelista Ritchie MD sent at 09/24/2021 8:33 AM EDT ----- Negative for COVID and influenza. documented in this encounter [facility] 09-23-2021 History of Present illness Narrative This note was created using [email or web address]. Subjective Edgar Nava is a 16 year old female. HPI Patient presents with a chief complaint of cough and congestion over the past 4 days. She has had a fever off and on as well. She has had a sore throat and nausea. No urinary complaints. She has had some diarrhea as well. Her mom is sick with similar symptoms. Her mom did take an at home COVID which was negative. She denies chest pain or shortness of breath. She does have a history of asthma and felt a little wheezy this morning but that passed. She has not had to use her inhaler. Last menstrual cycle was sometime last month, she is on control. She denies being . Review of Systems Constitutional: Positive for fatigue and fever. HENT: Positive for congestion, rhinorrhea and sore throat. Negative for ear pain. Respiratory: Positive for cough and wheezing. Negative for shortness of breath. Cardiovascular: Negative. Gastrointestinal: Negative. Genitourinary: Negative. Musculoskeletal: Negative. All other systems reviewed and are negative. PAST MEDICAL HISTORY Diagnosis Date Menstrual periods, abnormal 06/2015 NEGATIVE HISTORY OF 2013 Normal Color Vision Pneumonia 11/2013 resolved Sepsis (HCC) 12/16/2013 resolved. Admitted for observation [facility] after 2 day stay Current Outpatient Medications Medication Sig Dispense Refill sertraline (ZOLOFT) 50 mg tablet Take 2 tablets by mouth once daily. 60 tablet 0 norgestimate 0.25 mg-ethinyl estradiol 35 mcg (SPRINTEC) 0.25-35 mg-mcg per tablet Take 1 tablet by mouth once daily. 28 tablet 14 albuterol HFA (PROAIR HFA) 90 mcg/actuation inhaler Inhale 2 Puffs as instructed every 6 hours as needed. 18 g 1 ondansetron orally disintegrating (ZOFRAN ODT) 4 mg disintegrating tablet Take 1 tablet by mouth every 8 hours as needed. 12 tablet 0 benzonatate (TESSALON PERLES) 100 mg capsule Take 2 capsules by mouth three times daily as needed. 30 capsule 0 ondansetron orally disintegrating (ZOFRAN ODT) 4 mg disintegrating tablet Take 1 tablet by mouth every 8 hours as needed for nausea/vomiting. 3 tablet 0 ketoconazole (NIZORAL) 2 % shampoo Shampoo twice weekly (at least 3 days between each shampoo) for 8 weeks. Then use as needed. 120 mL 2 No current facility-administered medications for this visit. PAST SURGICAL HISTORY Procedure Laterality Date PAST SURGICAL HISTORY OF teeth removed FAMILY HISTORY Problem Relation Age of Onset Blood Clots Maternal Grandmother genetic clotting disorder - aorta replaced, screens Aneurysm Maternal Grandmother Blood Clots Mother None Other Social History Tobacco Use Smoking status: Passive Smoke Exposure - Never Smoker Smokeless tobacco: Never Used Tobacco comment: mother and mother's boyfriend smoke inside Vaping Use Vaping Use: current everyday user Substance Use Topics Alcohol use: No Drug use: No Objective BP 114/60 Pulse 91 Temp 36.6 C (97.9 F) Resp 16 Wt 92 kg (202 lb 12.8 oz) LMP 08/23/2021 SpO2 98% Physical Exam Vitals reviewed. Constitutional: Appearance: Normal appearance. HENT: Head: Normocephalic and atraumatic. Right Ear: Tympanic membrane, ear canal and external ear normal. Left Ear: Tympanic membrane, ear canal and external ear normal. Nose: Congestion present. Mouth/Throat: Mouth: Mucous membranes are moist. Pharynx: Oropharynx is clear. No oropharyngeal exudate or posterior oropharyngeal erythema. Cardiovascular: Rate and Rhythm: Normal rate and regular rhythm. Heart sounds: Normal heart sounds. Pulmonary: Effort: Pulmonary effort is normal. Breath sounds: Normal breath sounds. Abdominal: General: Abdomen is flat. Palpations: Abdomen is soft. Comments: Mild epigastric ttp Musculoskeletal: Cervical back: Neck supple. Lymphadenopathy: Cervical: No cervical adenopathy. Skin: General: Skin is warm and dry. Neurological: General: No focal deficit present. Mental Status: She is alert and oriented to person, place, and time. Assessment and Plan ASSESSMENT/PLAN: 1. Viral illness - ICD9: 079.99, ICD10: B34.9 - Discussed viral etiology and rationale for treatment. - Symptomatic treatment with prn analgesia - Supportive care with fluids and rest - Follow up in 3-5 days if symptoms persist or sooner if worsening of symptoms - COVID WITH FLUA+B, ROUTINE - ONDANSETRON 4 MG DISINTEGRATING TABLET - BENZONATATE 100 MG CAPSULE Micheline Resendiz PA-C documented in this encounter [facility] 09-21-2021 Miscellaneous Notes SPECIFIC NOTES (if applicable): Please schedule a medication recheck if one has not already been scheduled. GENERAL INFORMATION - The listed prescriptions have been signed. If applicable, please notify the patient/family. - Unless noted in the intake documentation, I assume the medications are being used as directed; the patient is doing well; there are no side effects; and there are no undocumented medications or allergies. - This note was created using a speech to text program. There may be some incorrect words, spellings, and punctuation that were missed on review. Yenifer Browne M.D. Last WCC: 11/29/20 Last ADHD / Med Check visit: 11/29/20 and appointment scheduled for 10/26/21 Verify RX Benefits Completed Last medication refill date: 06/18/21 with 2 refills Requesting 30 day supply Retail pharmacy updated: Completed Patient aware RX will be sent to pharmacy. No need to notify patient. Immunizations due: COVID-19 VACCINE(1) Never done MENINGOCOCCAL B: Consider based on risk(2 of 2 - Risk Bexsero 2-dose series) due on 04/13/2020 SPIROMETRY Never done GC (GONORRHEA) SCREENING (18-24) Never done HEPATITIS C SCREENING Never done HIV SCREENING Never done CHLAMYDIA SCREENING (18-24) Never done Bianca Kirkland RN documented in this encounter [facility] documented as of this encounter (statuses as of 09/21/2021) [facility] History of Past illness Narrative* Problem Noted Date Resolved Date Sepsis 12/16/2013 12/06/2015 Overview: Admitted for observation [facility] after 2 day stay past medical history 07/05/2016 Overview: teeth removed documented as of this encounter (statuses as of 09/23/2021) [facility] History of Past illness Narrative* Problem Noted Date Resolved Date Sepsis 12/16/2013 12/06/2015 Overview: Admitted for observation [facility] after 2 day stay past medical history 07/05/2016 Overview: teeth removed documented as of this encounter (statuses as of 09/25/2021) [facility] History of Past illness Narrative* Problem Noted Date Resolved Date Sepsis 12/16/2013 12/06/2015 Overview: Admitted for observation [facility] after 2 day stay past medical history 07/05/2016 Overview: teeth removed documented as of this encounter (statuses as of 10/09/2021) [facility] History of Past illness Narrative* Problem Noted Date Resolved Date Sepsis 12/16/2013 12/06/2015 Overview: Admitted for observation [facility] after 2 day stay past medical history 07/05/2016 Overview: teeth removed documented as of this encounter (statuses as of 10/10/2021) [facility] History of Past illness Narrative* Problem Noted Date Resolved Date Sepsis 12/16/2013 12/06/2015 Overview: Admitted for observation [facility] after 2 day stay past medical history 07/05/2016 Overview: teeth removed documented as of this encounter (statuses as of 10/12/2021) [facility] History of Past illness Narrative* Problem Noted Date Resolved Date Sepsis 12/16/2013 12/06/2015 Overview: Admitted for observation [facility] after 2 day stay past medical history 07/05/2016 Overview: teeth removed documented as of this encounter (statuses as of 10/23/2021) [facility] History of Past illness Narrative* Problem Noted Date Resolved Date Sepsis 12/16/2013 12/06/2015 Overview: Admitted for observation [facility] after 2 day stay past medical history 07/05/2016 Overview: teeth removed documented as of this encounter (statuses as of 10/26/2021) [facility] History of Past illness Narrative* Problem Noted Date Resolved Date Sepsis 12/16/2013 12/06/2015 Overview: Admitted for observation [facility] after 2 day stay past medical history 07/05/2016 Overview: teeth removed documented as of this encounter (statuses as of 12/03/2021) [address]21-2014 History of Past illness Narrative* Problem Noted Date Resolved Date Sepsis 12/16/2013 12/06/2015 Overview: Admitted for observation [facility] after 2 day stay past medical history 07/05/2016 Overview: teeth removed documented as of this encounter (statuses as of 02/20/2022) [facility] History of Past illness Narrative* Problem Noted Date Resolved Date Sepsis 12/16/2013 12/06/2015 Overview: Admitted for observation [facility] after 2 day stay past medical history 07/05/2016 Overview: teeth removed documented as of this encounter (statuses as of 05/04/2022) [facility] History of Past illness Narrative* Problem Noted Date Resolved Date Sepsis 12/16/2013 12/06/2015 Overview: Admitted for observation [facility] after 2 day stay past medical history 07/05/2016 Overview: teeth removed documented as of this encounter (statuses as of 05/06/2022) [facility] History of Past illness Narrative* Problem Noted Date Resolved Date Sepsis 12/16/2013 12/06/2015 Overview: Admitted for observation [facility] after 2 day stay past medical history 07/05/2016 Overview: teeth removed documented as of this encounter (statuses as of 05/14/2022) [place] [id number] History of Past illness Narrative* Problem Noted Date Resolved Date Sepsis 12/16/2013 12/06/2015 Overview: Admitted for observation [facility] after 2 day stay past medical history 07/05/2016 Overview: teeth removed documented as of this encounter (statuses as of 05/14/2022) [address]-2014 History of Past illness Narrative* Problem Noted Date Resolved Date Sepsis 12/16/2013 12/06/2015 Overview: Admitted for observation [facility] after 2 day stay past medical history 07/05/2016 Overview: teeth removed documented as of this encounter (statuses as of 05/22/2022) [place] [id number] History of Past illness Narrative* Problem Noted Date Resolved Date Sepsis 12/16/2013 12/06/2015 Overview: Admitted for observation [facility] after 2 day stay past medical history 07/05/2016 Overview: teeth removed documented as of this encounter (statuses as of 05/22/2022) [facility] History of Past illness Narrative* Problem Noted Date Resolved Date Sepsis 12/16/2013 12/06/2015 Overview: Admitted for observation [facility] after 2 day stay past medical history 07/05/2016 Overview: teeth removed documented as of this encounter (statuses as of 05/22/2022) [place] [id number] History of Past illness Narrative* Problem Noted Date Resolved Date Sepsis 12/16/2013 12/06/2015 Overview: Admitted for observation [facility] after 2 day stay past medical history 07/05/2016 Overview: teeth removed documented as of this encounter (statuses as of 07/03/2022) [facility] History of Past illness Narrative* Problem Noted Date Resolved Date Sepsis 12/16/2013 12/06/2015 Overview: Admitted for observation [facility] after 2 day stay past medical history 07/05/2016 Overview: teeth removed documented as of this encounter (statuses as of 07/05/2022) [facility] History of Past illness Narrative* Problem Noted Date Resolved Date Sepsis 12/16/2013 12/06/2015 Overview: Admitted for observation [facility] after 2 day stay past medical history 07/05/2016 Overview: teeth removed documented as of this encounter (statuses as of 07/19/2022) [place] [id number] History of Past illness Narrative* Problem Noted Date Resolved Date Sepsis 12/16/2013 12/06/2015 Overview: Admitted for observation [facility] after 2 day stay past medical history 07/05/2016 Overview: teeth removed documented as of this encounter (statuses as of 07/26/2022) [place] [id number] History of Past illness Narrative* Problem Noted Date Resolved Date Sepsis 12/16/2013 12/06/2015 Overview: Admitted for observation [facility] after 2 day stay past medical history 07/05/2016 Overview: teeth removed documented as of this encounter (statuses as of 08/02/2022) [place] [id number] History of Past illness Narrative* Problem Noted Date Resolved Date Sepsis 12/16/2013 12/06/2015 Overview: Admitted for observation [facility] after 2 day stay past medical history 07/05/2016 Overview: teeth removed documented as of this encounter (statuses as of 08/02/2022) [facility] History of Past illness Narrative* Problem Noted Date Resolved Date Sepsis 12/16/2013 12/06/2015 Overview: Admitted for observation [facility] after 2 day stay past medical history 07/05/2016 Overview: teeth removed documented as of this encounter (statuses as of 08/06/2022) [facility] History of Past illness Narrative* Problem Noted Date Resolved Date Sepsis 12/16/2013 12/06/2015 Overview: Admitted for observation [facility] after 2 day stay past medical history 07/05/2016 Overview: teeth removed documented as of this encounter (statuses as of 08/09/2022) [address]2014 History of Past illness Narrative* Problem Noted Date Resolved Date Sepsis 12/16/2013 12/06/2015 Overview: Admitted for observation [facility] after 2 day stay past medical history 07/05/2016 Overview: teeth removed documented as of this encounter (statuses as of 08/19/2022) [place] [id number] History of Past illness Narrative* Problem Noted Date Resolved Date Sepsis 12/16/2013 12/06/2015 Overview: Admitted for observation [facility] after 2 day stay past medical history 07/05/2016 Overview: teeth removed documented as of this encounter (statuses as of 08/29/2022) [place] [id number] History of Past illness Narrative* Problem Noted Date Resolved Date Sepsis 12/16/2013 12/06/2015 Overview: Admitted for observation [facility] after 2 day stay past medical history 07/05/2016 Overview: teeth removed documented as of this encounter (statuses as of 10/25/2022) [place] [id number] History of Past illness Narrative* Problem Noted Date Diagnosed Date Resolved Date Sepsis 12/16/2013 12/06/2015 Overview: Admitted for observation [facility] after 2 day stay past medical history 017 Overview: teeth removed documented as of this encounter (statuses as of 01/02/2023) [facility] History of Past illness Narrative* Problem Noted Date Diagnosed Date Resolved Date Sepsis 12/16/2013 12/06/2015 Overview: Admitted for observation [facility] after 2 day stay past medical history 017 Overview: teeth removed documented as of this encounter (statuses as of 01/24/2023) [facility] History of Past illness Narrative* Problem Noted Date Diagnosed Date Resolved Date Sepsis 12/16/2013 12/06/2015 Overview: Admitted for observation [facility] after 2 day stay past medical history 017 Overview: teeth removed documented as of this encounter (statuses as of 02/13/2023) [facility] History of Past illness Narrative* Problem Noted Date Diagnosed Date Resolved Date Sepsis 12/16/2013 12/06/2015 Overview: Admitted for observation [facility] after 2 day stay past medical history 017 Overview: teeth removed documented as of this encounter (statuses as of 02/14/2023) [facility] History of Past illness Narrative* Problem Noted Date Diagnosed Date Resolved Date Sepsis 12/16/2013 12/06/2015 Overview: Admitted for observation [facility] after 2 day stay past medical history 017 Overview: teeth removed documented as of this encounter (statuses as of 02/14/2023) [facility] History of Past illness Narrative* Problem Noted Date Diagnosed Date Resolved Date Sepsis 12/16/2013 12/06/2015 Overview: Admitted for observation [facility] after 2 day stay past medical history 017 Overview: teeth removed documented as of this encounter (statuses as of 02/27/2023) [facility] History of Past illness Narrative* Problem Noted Date Diagnosed Date Resolved Date Sepsis 12/16/2013 12/06/2015 Overview: Admitted for observation [facility] after 2 day stay past medical history 017 Overview: teeth removed documented as of this encounter (statuses as of 03/02/2023) [facility] History of Past illness Narrative* Problem Noted Date Diagnosed Date Resolved Date Sepsis 12/16/2013 12/06/2015 Overview: Admitted for observation [facility] after 2 day stay past medical history Overview: teeth removed documented as of this encounter (statuses as of 03/02/2023) [facility] History of Past illness Narrative* Problem Noted Date Diagnosed Date Resolved Date Sepsis 12/16/2013 12/06/2015 Overview: Admitted for observation [facility] after 2 day stay past medical history Overview: teeth removed documented as of this encounter (statuses as of 03/02/2023) [facility] History of Past illness Narrative* Problem Noted Date Diagnosed Date Resolved Date Sepsis 12/16/2013 12/06/2015 Overview: Admitted for observation [facility] after 2 day stay past medical history 017 Overview: teeth removed documented as of this encounter (statuses as of 03/06/2023) [facility] History of Past illness Narrative* Problem Noted Date Diagnosed Date Resolved Date Sepsis 12/16/2013 12/06/2015 Overview: Admitted for observation [facility] after 2 day stay past medical history 017 Overview: teeth removed documented as of this encounter (statuses as of 05/30/2023) [facility] note* Diagnosis Viral illness- Primary Unspecified viral infection, in conditions classified elsewhere and of unspecified site documented in this encounter [facility] note* Diagnosis Pelvic pain in female- Primary Unspecified symptom associated with female genital organs Counseling for control, oral contraceptives General counseling for prescription of oral contraceptives documented in this encounter [facility] note* Diagnosis Pelvic pain in female- Primary Unspecified symptom associated with female genital organs documented in this encounter [facility]* Diagnosis Polycystic ovaries- Primary documented in this encounter [facility]* Diagnosis Depression, unspecified depression type- Primary Anxiety Anxiety state, unspecified Encounter for immunization Need for other specified prophylactic vaccination against single bacterial disease documented in this encounter [facility] note* Diagnosis Viral illness- Primary Unspecified viral infection, in conditions classified elsewhere and of unspecified site [facility]* Diagnosis Acute URI- Primary Acute upper respiratory infections of unspecified site documented in this encounter [facility]* Diagnosis Vaginal odor- Primary Unspecified symptom associated with female genital organs Pelvic pain in female Unspecified symptom associated with female genital organs Screen for STD (sexually transmitted disease) Screening examination for venereal disease documented in this encounter [facility] note* Diagnosis Pelvic pain in female- Primary Unspecified symptom associated with female genital organs Vaginal pain Unspecified symptom associated with female genital organs Pelvic floor tension documented in this encounter [facility]* Diagnosis Pelvic pain in female- Primary Unspecified symptom associated with female genital organs documented in this encounter [facility]* Diagnosis Pelvic pain in female Unspecified symptom associated with female genital organs [facility]* Diagnosis Acute otitis externa of right ear, unspecified type- Primary [facility] this [facility]* Diagnosis Vaginal pain- Primary Unspecified symptom associated with female genital organs Muscle tightness Unspecified disorder of muscle, ligament, and fascia documented in this encounter [facility]* Diagnosis Vaginal pain- Primary Unspecified symptom associated with female genital organs Muscle tightness Unspecified disorder of muscle, ligament, and fascia [facility] this [facility]* Diagnosis Anxiety- Primary Anxiety state, unspecified Depression, unspecified depression type Hot flashes Symptomatic menopausal or female climacteric states documented in this encounter [facility] note* Diagnosis Menorrhagia with irregular cycle- Primary Excessive or frequent menstruation documented in this encounter [facility] note* Diagnosis Generalized abdominal pain Abdominal pain, generalized Nausea without vomiting Gastroesophageal reflux disease without esophagitis Esophageal reflux Diarrhea, unspecified type documented in this encounter [facility] note* Diagnosis Generalized abdominal pain Abdominal pain, generalized Nausea without vomiting Gastroesophageal reflux disease without esophagitis Esophageal reflux Diarrhea, unspecified type documented in this encounter [facility] note* Diagnosis URI, acute- Primary Acute upper respiratory infections of unspecified site Sore throat Acute pharyngitis History of asthma Personal history of other diseases of respiratory system documented in this encounter [facility] note* Diagnosis Contusion of abdominal wall, initial encounter- Primary Discoloration of skin Dyschromia, unspecified Generalized abdominal pain Abdominal pain, generalized Mesenteric adenitis Nonspecific mesenteric lymphadenitis Hepatic steatosis Other chronic nonalcoholic liver disease Lymphocytic colitis Other and unspecified noninfectious gastroenteritis and colitis documented in this encounter [facility]* Diagnosis Hypertriglyceridemia- Primary Pure hyperglyceridemia Hyperlipidemia, mixed Mixed hyperlipidemia Hepatic steatosis Other chronic nonalcoholic liver disease documented in this encounter [facility] note* Diagnosis Hypertriglyceridemia- Primary Pure hyperglyceridemia Hyperlipidemia, mixed Mixed hyperlipidemia Hepatic steatosis Other chronic nonalcoholic liver disease documented in this encounter [facility] note* Diagnosis Pelvic and perineal pain Unspecified symptom associated with female genital organs documented in this encounter [facility] note* Diagnosis Irregular menstrual cycle- Primary Rash Rash and other nonspecific skin eruption documented in this encounter [facility] for referral (narrative)* Diagnostic Procedure Only (Routine) - Authorized Specialty Diagnoses / Procedures Referred By Noah t Referred To Contact [facility] Diagnoses Pelvic pain in female Counseling for control, oral contraceptives Procedures PELVIC US WHI US PELVIC NONOBSTETRIC REAL-TIME IMAGE COMPLETE Ken Richards MD [address] [place] [address] [facility] [address] [place] [address] Referral ID Status Reason Start Date Expiration Date Visits Requested Visits Authorized [id number] Authorized Auto-Generat ed Referral 10/09/2021 10/09/2022 1 1 [facility] for referral (narrative)* Diagnostic Procedure Only (Routine) - Pending Review Specialty Diagnoses / Procedures Referred By Adamac t Referred To Contact [facility] Diagnoses Hypertriglyceridemia Hyperlipidemia, mixed Hepatic steatosis Procedures US ABDOMEN LTD US ABDOMINAL REAL TIME W/IMAGE LIMITED Asa Cartwright APRN.CCIE [address] [place] [address] [facility] [place] [address] Referral ID Status Reason Start Date Expiration Date Visits Requested Visits Authorized [id number] Pending Review Auto-Generat ed Referral 3 03/14/2024 1 1 [facility] for referral (narrative)* Outpatient Procedure (Routine) - Pending Review Specialty Diagnoses / Procedures Referred By Adamac t Referred To Contact [facility] Diagnoses Hypertriglyceridemia Hyperlipidemia, mixed Hepatic steatosis Procedures DDI VIBRATION CONTROLLED TRANSIENT ELASTOGRAPHY (VCTE) LIVER ELASTOGRAPHY W/O IMAG W/I&R Asa Cartwright APRN.CCIE [address] [place] [address] [address] Referral ID Status Reason Start Date Expiration Date Visits Requested Visits Authorized [id number] Pending Review Auto-Generat ed Referral 3 02/11/2024 1 1 [facility] for visit Narrative* Diagnostic Procedure Only (Routine) - Closed Specialty Diagnoses / Procedures Referred By Contac t Referred To Contact [facility] Diagnoses Pelvic pain in female Procedures PELVIC US WHI US PELVIC NONOBSTETRIC REAL-TIME IMAGE COMPLETE Ken Richards MD [address] [place] [address] [facility] [address] [place] [address] Referral ID Status Reason Start Date Expiration Date V isits Requested Visits Authorized [id number] Closed Auto-Generate d Referral 05/14/2022 05/14/2023 1 1 [facility] Concerns Infection Onset Date Last Indicated Resolved Time COVID-19 Rule-Out 09/23/2021 09/23/2021 Infection Onset Date Last Indicated Resolved Time COVID-19 Rule-Out 09/23/2021 09/23/2021 09/24/2021 1:58 AM EDT Reason for Referral Specialty Diagnoses / Procedures Referred By Contac t Referred To Contact [facility] Diagnoses Vaginal pain Procedures CONSULT TO PHYSICAL THERAPY PHYSICAL THERAPY EVALUATION HIGH COMPLEX 45 MINS Ken Richards MD [address] [place] [address] [facility] [place] [address] [place] [address] Referral ID Status Reason Start Date Expiration Date Visits Requested Visits Authorized [id number] Pending Review Auto-Generat ed Referral 05/14/2022 05/14/2023 1 1 Specialty Diagnoses / Procedures Referred By Contac t Referred To Contact [facility] Diagnoses Pelvic pain in female Procedures US FEMALE PELVIS TRANSABD LTD US PELVIC NONOBSTETRIC IMAGE DCMTN LIMITED/F/U Ken Richards MD [address] [place] [address] [facility] Referral ID Status Reason Start Date Expiration Date Visits Requested Visits Authorized [id number] Pending Review Auto-Generat ed Referral 05/14/2022 06/13/2023 1 1 Specialty Diagnoses / Procedures Referred By Contac t Referred To Contact [facility] Diagnoses Pelvic pain in female Procedures US FEMALE PELVIS TRANSVAG US TRANSVAGINAL Ken Richards MD [address] [place] [address] [facility] Referral ID Status Reason Start Date Expiration Date Visits Requested Visits Authorized [id number] Pending Review Auto-Generat ed Referral 05/14/2022 06/13/2023 1 1 Specialty Diagnoses / Procedures Referred By Contac t Referred To Contact [facility] Diagnoses Pelvic pain in female Procedures PELVIC US WHI US PELVIC NONOBSTETRIC REAL-TIME IMAGE COMPLETE Ken Richards MD [address] [place] [address] [facility] [address] [place] [address] Referral ID Status Reason Start Date Expiration Date Visits Requested Visits Authorized [id number] Authorized Auto-Generat ed Referral 05/14/2022 05/14/2023 1 1 Specialty Diagnoses / Procedures Referred By Contac t Referred To Contact [facility] Diagnoses Vaginal pain Procedures PT REHAB FOLLOW UP ORDER THERAPEUTIC EXERCISES RE, EA 15 MIN. Micheline Weston, PT [address] [place] [address] [facility] [address] [address] Referral ID Status Reason Start Date Expiration Date Visits Requested Visits Authorized [id number] Pending Review PCP Requested Referral Auto-Generate d Referral 07/05/2022 10/03/2022 1 1 Specialty Diagnoses / Procedures Referred By Contac t Referred To Contact CT [facility] Diagnoses Pelvic and perineal pain Procedures CT ABD/PEL W IVCON CT ABD & PELVIS W/CONTRAST Reina Haywood APRN.CCIE [address] [place] [address] [place] [address] Referral ID Status Reason Start Date Expiration Date V isits Requested Visits Authorized [id number] Closed Auto-Generate d Referral 09/24/2022 11/23/2022 2 2 Summary Purpose Family History No Family History Records FoundNo Family History Records Found Advance Directives No Advanced Directives Records FoundNo Advanced Directives Records Found Additional Source Comments Source Comments (unrecognize d section and content) In the event this informatio n is protected by the Federal Confidentiality of Alcohol and Drug Abuse Patient Records regulations: The Federal rules restrict any use of the information to criminally investigate or prosecute any alcohol or drug abuse patient.[facility] event this information is protected by the Federal Confidentiality of Alcohol and Drug Abuse Patient Records regulations: The Federal rules restrict any use of the information to criminally investigate or prosecute any alcohol or drug abuse patient.[facility] the event this information is protected by the Federal Confidentiality of Alcohol and Drug Abuse Patient Records regulations: The Federal rules restrict any use of the information to criminally investigate or prosecute any alcohol or drug abuse patient.[facility] the event this information is protected by the Federal Confidentiality of Alcohol and Drug Abuse Patient Records regulations: The Federal rules restrict any use of the information to criminally investigate or prosecute any alcohol or drug abuse patient.[facility] the event this information is protected by the Federal Confidentiality of Alcohol and Drug Abuse Patient Records regulations: The Federal rules restrict any use of the information to criminally investigate or prosecute any alcohol or drug abuse patient.[facility] the event this information is protected by the Federal Confidentiality of Alcohol and Drug Abuse Patient Records regulations: The Federal rules restrict any use of the information to criminally investigate or prosecute any alcohol or drug abuse patient.[facility] the event this information is protected by the Federal Confidentiality of Alcohol and Drug Abuse Patient Records regulations: The Federal rules restrict any use of the information to criminally investigate or prosecute any alcohol or drug abuse patient.[facility] the event this information is protected by the Federal Confidentiality of Alcohol and Drug Abuse Patient Records regulations: The Federal rules restrict any use of the information to criminally investigate or prosecute any alcohol or drug abuse patient.[facility] the event this information is protected by the Federal Confidentiality of Alcohol and Drug Abuse Patient Records regulations: The Federal rules restrict any use of the information to criminally investigate or prosecute any alcohol or drug abuse patient.[facility] the event this information is protected by the Federal Confidentiality of Alcohol and Drug Abuse Patient Records regulations: The Federal rules restrict any use of the information to criminally investigate or prosecute any alcohol or drug abuse patient.[facility] the event this information is protected by the Federal Confidentiality of Alcohol and Drug Abuse Patient Records regulations: The Federal rules restrict any use of the information to criminally investigate or prosecute any alcohol or drug abuse patient.[facility] the event this information is protected by the Federal Confidentiality of Alcohol and Drug Abuse Patient Records regulations: The Federal rules restrict any use of the information to criminally investigate or prosecute any alcohol or drug abuse patient.[facility] the event this information is protected by the Federal Confidentiality of Alcohol and Drug Abuse Patient Records regulations: The Federal rules restrict any use of the information to criminally investigate or prosecute any alcohol or drug abuse patient.[facility] the event this information is protected by the Federal Confidentiality of Alcohol and Drug Abuse Patient Records regulations: The Federal rules restrict any use of the information to criminally investigate or prosecute any alcohol or drug abuse patient.[facility] the event this information is protected by the Federal Confidentiality of Alcohol and Drug Abuse Patient Records regulations: The Federal rules restrict any use of the information to criminally investigate or prosecute any alcohol or drug abuse patient.[facility] the event this information is protected by the Federal Confidentiality of Alcohol and Drug Abuse Patient Records regulations: The Federal rules restrict any use of the information to criminally investigate or prosecute any alcohol or drug abuse patient.[facility] the event this information is protected by the Federal Confidentiality of Alcohol and Drug Abuse Patient Records regulations: The Federal rules restrict any use of the information to criminally investigate or prosecute any alcohol or drug abuse patient.[facility] the event this information is protected by the Federal Confidentiality of Alcohol and Drug Abuse Patient Records regulations: The Federal rules restrict any use of the information to criminally investigate or prosecute any alcohol or drug abuse patient.[facility] the event this information is protected by the Federal Confidentiality of Alcohol and Drug Abuse Patient Records regulations: The Federal rules restrict any use of the information to criminally investigate or prosecute any alcohol or drug abuse patient.[facility] the event this information is protected by the Federal Confidentiality of Alcohol and Drug Abuse Patient Records regulations: The Federal rules restrict any use of the information to criminally investigate or prosecute any alcohol or drug abuse patient.[facility] the event this information is protected by the Federal Confidentiality of Alcohol and Drug Abuse Patient Records regulations: The Federal rules restrict any use of the information to criminally investigate or prosecute any alcohol or drug abuse patient.[facility] the event this information is protected by the Federal Confidentiality of Alcohol and Drug Abuse Patient Records regulations: The Federal rules restrict any use of the information to criminally investigate or prosecute any alcohol or drug abuse patient.[facility] the event this information is protected by the Federal Confidentiality of Alcohol and Drug Abuse Patient Records regulations: The Federal rules restrict any use of the information to criminally investigate or prosecute any alcohol or drug abuse patient.[facility] the event this information is protected by the Federal Confidentiality of Alcohol and Drug Abuse Patient Records regulations: The Federal rules restrict any use of the information to criminally investigate or prosecute any alcohol or drug abuse patient.[facility] the event this information is protected by the Federal Confidentiality of Alcohol and Drug Abuse Patient Records regulations: The Federal rules restrict any use of the information to criminally investigate or prosecute any alcohol or drug abuse patient.[facility] the event this information is protected by the Federal Confidentiality of Alcohol and Drug Abuse Patient Records regulations: The Federal rules restrict any use of the information to criminally investigate or prosecute any alcohol or drug abuse patient.[facility] the event this information is protected by the Federal Confidentiality of Alcohol and Drug Abuse Patient Records regulations: The Federal rules restrict any use of the information to criminally investigate or prosecute any alcohol or drug abuse patient.[facility] the event this information is protected by the Federal Confidentiality of Alcohol and Drug Abuse Patient Records regulations: The Federal rules restrict any use of the information to criminally investigate or prosecute any alcohol or drug abuse patient.[facility] the event this information is protected by the Federal Confidentiality of Alcohol and Drug Abuse Patient Records regulations: The Federal rules restrict any use of the information to criminally investigate or prosecute any alcohol or drug abuse patient.[facility] the event this information is protected by the Federal Confidentiality of Alcohol and Drug Abuse Patient Records regulations: The Federal rules restrict any use of the information to criminally investigate or prosecute any alcohol or drug abuse patient.[facility] the event this information is protected by the Federal Confidentiality of Alcohol and Drug Abuse Patient Records regulations: The Federal rules restrict any use of the information to criminally investigate or prosecute any alcohol or drug abuse patient.[facility] the event this information is protected by the Federal Confidentiality of Alcohol and Drug Abuse Patient Records regulations: The Federal rules restrict any use of the information to criminally investigate or prosecute any alcohol or drug abuse patient.[facility] the event this information is protected by the Federal Confidentiality of Alcohol and Drug Abuse Patient Records regulations: The Federal rules restrict any use of the information to criminally investigate or prosecute any alcohol or drug abuse patient.[facility] the event this information is protected by the Federal Confidentiality of Alcohol and Drug Abuse Patient Records regulations: The Federal rules restrict any use of the information to criminally investigate or prosecute any alcohol or drug abuse patient.[facility] the event this information is protected by the Federal Confidentiality of Alcohol and Drug Abuse Patient Records regulations: The Federal rules restrict any use of the information to criminally investigate or prosecute any alcohol or drug abuse patient.[facility] the event this information is protected by the Federal Confidentiality of Alcohol and Drug Abuse Patient Records regulations: The Federal rules restrict any use of the information to criminally investigate or prosecute any alcohol or drug abuse patient.[facility] the event this information is protected by the Federal Confidentiality of Alcohol and Drug Abuse Patient Records regulations: The Federal rules restrict any use of the information to criminally investigate or prosecute any alcohol or drug abuse patient.[facility] the event this information is protected by the Federal Confidentiality of Alcohol and Drug Abuse Patient Records regulations: The Federal rules restrict any use of the information to criminally investigate or prosecute any alcohol or drug abuse patient.[facility] the event this information is protected by the Federal Confidentiality of Alcohol and Drug Abuse Patient Records regulations: The Federal rules restrict any use of the information to criminally investigate or prosecute any alcohol or drug abuse patient.[facility] Reason for Visit (unrecogniz ed section and content) Reason Comments Sore Throat pain rated 2, Connell karen n rated 6, x4 days, diarrhea, nausea Reason Comments Results Reason Comments Contraception Reason Comments Pelvic Pain Reason Comments Patient Question Reason Comments Med Check Working well per pt Reason Comments Sore Throat Fever, runny nose, c ough x 4 days Reason Comments Cough Reason Comments Vaginal Problem Reason Comments Pelvic Pain Reason Comments Ear Pain Right ear pain x 4 d ays Reason Comments PT Eval Specialty Diagnoses / Procedures Referred By Contac t Referred To Contact [facility] Diagnoses Vaginal pain Procedures CONSULT TO PHYSICAL THERAPY PHYSICAL THERAPY EVALUATION HIGH COMPLEX 45 MINS Ken Richards MD [address] [place] [address] Pt [facility] [address] [place] [address] Referral ID Status Reason Start Date Expiration Date Visits Requested Visits Authorized [id number] Pending Review Auto-Generat ed Referral 05/14/2022 05/14/2023 1 1 Reason Comments Physical Therapy Specialty Diagnoses / Procedures Referred By Contac t Referred To Contact [facility] Diagnoses Vaginal pain Procedures PT REHAB FOLLOW UP ORDER THERAPEUTIC EXERCISES RE, EA 15 MIN. Micheline Weston, PT [address] [place] [address] [facility] [place] [address] [place] [address] Referral ID Status Reason Start Date Expiration Date Visits Requested Visits Authorized [id number] Authorized PCP Requested Referral Auto-Generate d Referral 07/09/2022 10/09/2022 8 8 Reason Comments Med Check Med Check - Pt repor ts doing well, discuss ? Hot flashes. Reason Comments Discussion Reason Comments Pelvic Pain Specialty Diagnoses / Procedures Referred By Contac t Referred To Contact Diagnoses Generalized abdominal pain Nausea without vomiting Gastroesophageal reflux disease without esophagitis Diarrhea, unspecified type Generalized abdominal pain [R10.84] Nausea without vomiting [R11.0] Gastroesophageal reflux disease without esophagitis [K21.9] Diarrhea, unspecified type [R19.7] Procedures VT EGD TRANSORAL BIOPSY SINGLE/MULTIPLE VT COLONOSCOPY W/BIOPSY SINGLE/MULTIPLE ENDOSCOPY (UPPER AND COLONOSCOPY) [place] [address] Referral ID Status Reason Start Date Expiration Date Visits Re quested Visits Authorized [id number] 1 1 Reason Comments Cough Sore throat, CONNELL, run ny nose, fever x 1 day Reason Comments Derm Problem Rash on abdomen x 2 months Reason Comments Orders Reason Comments Results Reason Comments call outside physician office Reason Comments Radiology US Reason Comments Radiology CT Specialty Diagnoses / Procedures Referred By Contac t Referred To Contact [facility] Diagnoses Pelvic and perineal pain Procedures CT ABD/PEL W IVCON CT ABD & PELVIS W/CONTRAST Reina Haywood, JERE.CCIE [address] [place] [address] [place] [address] Referral ID Status Reason Start Date Expiration Date V isits Requested Visits Authorized [id number] Closed Auto-Generate d Referral 09/24/2022 11/23/2022 2 2 Reason Onset Date Comments Refill Request 03/06/2023 Care Teams (unrecognized sec tion and content) Staff Psychiatrist Relationship Specialty Start Date End Date Yenifer Browne MD [address] [place] [address] [id number] PCP - General Pediatrics 06/30/18 Staff Psychiatrist Relationship Specialty Start Date End Date Yenifer Browne MD [address] [place] [address] [id number] PCP - General Pediatrics 06/30/18 Staff Psychiatrist Relationship Specialty Start Date End Date Yenifer Browne MD [address] [place] [address] [id number] PCP - General Pediatrics 06/30/18 Staff Psychiatrist Relationship Specialty Start Date End Date Yenifer Browne MD [address] [place] [address] [id number] PCP - General Pediatrics 06/30/18 Staff Psychiatrist Relationship Specialty Start Date End Date Yenifer Browne MD [address] [place] [address] [id number] PCP - General Pediatrics 06/30/18 Staff Psychiatrist Relationship Specialty Start Date End Date Yenifer Browne MD [address] [facility] [place] [address] PCP - General Pediatrics 06/30/18 Staff Psychiatrist Relationship Specialty Start Date End Date Yenifer Browne MD [address] [facility] [place] [address] PCP - General Pediatrics 06/30/18 Staff Psychiatrist Relationship Specialty Start Date End Date Yenifer Browne MD [address] [facility] [place] [address] PCP - General Pediatrics 06/30/18 Staff Psychiatrist Relationship Specialty [place] [address] [place] [address], [place] [address] PCP - General Pediatrics 06/30/18 Staff Psychiatrist Relationship Specialty [place] [address] [place] [address], [place] [address] PCP - General Pediatrics 06/30/18 Staff Psychiatrist Relationship Specialty Start Date End Date Yenifer Browne MD [address] [facility] [place] [address] PCP - General Pediatrics 06/30/18 Staff Psychiatrist Relationship Specialty Start Date End Date Yenifer Browne MD [address] [facility] [place] [address] PCP - General Pediatrics 06/30/18 Staff Psychiatrist Relationship Specialty Start Date End Date Yenifer Browne MD [address] [facility] [place] [address] PCP - General Pediatrics 06/30/18 Staff Psychiatrist Relationship Specialty Start Date End Date PlayYenifer galarza MD [address] [facility] [place] [address] PCP - General Pediatrics 06/30/18 Staff Psychiatrist Relationship Specialty Start Date End Date Playl, Yenifer M, MD [address] [place], [place] [id number] PCP - General Pediatrics 06/30/18 Staff Psychiatrist Relationship Specialty Start Date End Date Yenifer Browne MD [address] [place], [place] [id number] PCP - General Pediatrics 06/30/18 Staff Psychiatrist Relationship Specialty Start Date End Date Yenifer Browne MD [facility] [address] [place], [place] [address] PCP - General 10/10/15 Staff Psychiatrist Relationship Specialty Start Date End Date Yenifer Browne MD [facility] [address] [place], [place] [id number] PCP - General 10/10/15 Staff Psychiatrist Relationship Specialty Start Date End Date Yenifer Browne MD [address] [place], [place] [id number] PCP - General Pediatrics 06/30/18 01/01/23 Staff Psychiatrist Relationship Specialty Start Date End Date Yenifer Browne MD [address] [place], [place] [id number] PCP - General Pediatrics 06/30/18 01/01/23 Staff Psychiatrist Relationship Specialty Start Date End Date Yenifer Browne MD [address] [place], [place] [address] PCP - General Pediatrics 06/30/18 01/01/23 Continuous Active and Recently Administ ered Medications (unrecognized section and content) INFORMATION SOURCE (unrecogn ized section and content) DATE CREATED AUTHOR AUTHOR'S ORGANIZ ATION 05/31/2023 [facility] FOR RECORDS PERTAINING TO PATIENTS WHO ARE OR HAVE BEEN ENROLLED IN A CHEMICAL DEPENDENCY/SUBSTANCEABUSE PROGRAM, SOME INFORMATION MAY BE OMITTED. This clinical summary was aggregated from multiple sources. Caution should be exercised in using it in the provision of clinical care. This summary normalizes information from multiple sources, and as a consequence, information in this document may materially change the coding, format and clinical context of patient data. In addition, data may be omitted in some cases. CLINICAL DECISIONS SHOULD BE BASED ON THE PRIMARY CLINICAL RECORDS. [facility] [employer] [facility]. provides no warranty or guarantee of the accuracy or completeness of information in this document.
== END | disposition home or self-care (01) ==
LOC: US 08:45
PROVIDERS: Referring Provider Pediatrics; Visit Provider Pediatrics
DX: R10.84 Generalized abdominal pain (principal); R23.8 Other skin changes
CPT/HCPCS: 76700

== ENCOUNTER 2023-10-15 09:11 | Emergency (ER) | payer MEDICAID, SELFPAY ==
[2023-10-15 09:12] VITALS: BP 117/86; PULSE 66; RESP 18; TEMP 36.4; O2SAT 97; BMI 34.9
--- NOTE | 2023-10-15 09:24 | EX.ED.VIS.UR ---
HPI HPI - URI History of Present Illness Chief Complaint: Abd Pain Detail of Chief Complaint: URI with right-sided chest discomfort. Informant: patient Onset/Context/Timing Onset: Days Context: Gradual Onset Timing: Continuous Current Severity: Mild Maximum Severity: Mild Associated Symptoms Associated Symptoms: Positive for Chest Pain and Nonproductive cough Narrative Narrative: 18-year-old female history of lymphocytic colitis and Garvey bladder syndrome. Has had right-sided chest discomfort with URI symptoms since Friday with nonproductive cough. She is non-smoker. Said she has had subjective fever the other night. Denies any productive sputum nor hemoptysis. No leg pain or swelling. No history of DVT or PE or risk factors. Says at times the pain will radiate from her chest into her abdomen but she is really not having abdominal pain. Prior similar symptoms: Yes Recent Illness/Hospitalization: No ROS ROS ED ROS Narrative URI. Nonproductive cough. Right side chest discomfort. No vomiting or diarrhea. Review of Systems ROS Unobtainable: Denies due to encephalopathy Constitutional Constitutional ED: Reports fever(s) and subjective; Denies chills Eyes Eyes: Denies blurry vision ENT ENT ED: Denies ear pain Cardiovascular Cardiovascular: Reports chest pain; Denies palpitations or racing heartbeat Respiratory/Chest Respiratory/Chest: Reports cough; Denies sputum Gastrointestinal Gastrointestinal: Denies constipation, diarrhea, melena, nausea or vomiting Genitourinary Genitourinary ED: Denies dysuria or hematuria Musculoskeletal Musculoskeletal: Denies arthralgias, back pain or myalgias Integumentary Denies abscess Neurologic Neurologic: Denies headache(s) Psychiatric Psychiatric: Denies anxiety Endocrine Endocrinology: Denies cold intolerance Hematologic/Lymphatic Hematologic/Lymphatic: Denies easy bleeding, easy bruising or lymphadenopathy Allergic/Immunologic Allergic/Immunologic ED: Denies mouth swelling, tongue swelling or urticaria [facility] Medical History [place] syndrome Home Medications ?Medication ?Instructions ?Recorded ?Last Taken ?Type ibuprofen 800 mg tablet 800 mg PO TID PRN PRN Pain #20 tabs 02/09/18 Unknown Rx penicillin V potassium 500 mg 500 mg PO 4X/DAY #40 tabs 02/09/18 Unknown Rx tablet Allergy/AdvReac Type Severity Reaction Status Date / Time mesalamine Allergy Intermediate Rash Verified 10/15/23 09:11 Environmental Allergies: Allergy Hives Verified 10/15/23 09:11 Uncoded Social History Smoking Status: Never smoker EXAM Physical Exam Narrative Exam Narrative: Well-appearing 18-year-old female. Vital signs stable afebrile. No distress. Pulse ox 97% on room air no hypoxia. H EENT exam unremarkable. Neck nontender no JVD. Lungs clear to auscultation bilaterally. Heart regular rhythm no murmur. Chest wall she has mild right-sided chest wall reproducible discomfort. No redness or discoloration. Left unremarkable. Abdomen soft, nontender, nondistended normal bowel sounds without peritoneal signs. Right upper or right lower quadrants are both nontender. Moving all 4 extremities. Calves are nontender without edema or cords. Normal strength and sensation. She is awake and alert no focal motor deficits. Back is nontender. Const Vital Signs: 10/15/23 09:12 Temperature 97.6 F L Temperature Source Temporal Pulse Rate 66 Respiratory Rate 18 Blood Pressure 117/86 H Blood Pressure Mean 96 Pulse Ox 97 Oxygen Delivery Method Room Air Positive well nourished and well developed; Negative for cachectic or contractures General Appearance ED: well developed and NAD; Negative for cachectic, contractures, cyanotic, diaphoretic or pallor Nutritional Appearance: Negative for cachectic HEENT Reports moist mucous membranes; Denies dry mucous membranes normocephalic and atraumatic; Negative for scalp tenderness Face and Sinus: Negative for sinus tenderness Mouth ED: No dry mucous membranes Mouth: No dry mucous membranes Teeth and Gingiva: Negative for caries Throat: posterior oropharynx normal Eyes PERRL and EOMs intact bilaterally General Eye ED: Negative for pale conjunctiva, scleral icterus or other Neck no lymphadenopathy, supple, no meningeal signs and no JVD General: Negative for anterior neck swelling or lymphadenopathy Resp normal respiratory effort and clear to auscultation bilaterally Effort and Inspection: Negative for retractions Auscultation: Negative for rales, rhonchi or wheezes Cardio S1 normal heart sound, S2 normal heart sound and no murmurs Rate: regular rate; Negative for bradycardia or tachycardic Rhythm: regular rhythm; Negative for abnormal rhythm GI non-tender, non-distended and no masses Inspection: Negative for abdominal distention Auscultation: normoactive bowel sounds Palpation: soft; Negative for tender or guarding Back/Spine no CVA tenderness and normal ROM General Back: Negative for CVA tenderness Cervical Spine: Negative for cervical spine tenderness Thoracic Spine / Upper Back: Negative for thoracic spinal tenderness Lumbar Spine / Lower Back: Negative for lumbar spinal tenderness Sacrum: Negative for tenderness Extremity normal to inspection and full ROM General Extremety ED: Negative for cyanosis, tenderness or other findings General Extremity: Negative for cyanosis or other findings Neuro oriented x3 and CN's II-XII intact bilaterally Sensorium / Orientation: alert, oriented to person, oriented to place and oriented to time; Negative for orientation impaired, lethargic, stuporous or other Motor Exam: strength 5/5 throughout Psych mental status grossly normal Appearance: Negative for other Attitude: No agitated Mood & Affect: Negative for depressed, anxious or tearful Skin General Skin Exam: Negative for jaundice or pallor Lesions: no lesions Rashes: no rashes MDM MDM MDM Narrative Medical decision making narrative: 18-year-old URI suspect viral syndrome. Reproducible chest wall pain. Chest x-ray to be obtained to rule out pneumonia. This is not cardiac etiology. She has no history of DVT or PE or risk factors or any physical findings. She is having no abdominal pain. She is completely benign and nontender abdominal exam and only she needs any labs or imaging for that. And she has had ultrasounds and CAT scans of her abdomen in the last year that were unremarkable. Repeat exam patient doing well 9:49 AM. She and I went over her chest x-ray results. This appears to be a viral URI. She does need antibiotics. She can take Motrin and Tylenol for musculoskeletal chest wall pain. Outpatient follow-up as needed. Return if worse. History & Record Review Discussion w/independent historian: Patient Additional record(s) reviewed:: Prior inpatient record, Prior outpatient record, Prior ED visit and Prior labs Radiography Chest X-Ray - ED: 2 View, Read by ED Physician, Read by Radiologist, Normal, Heart, Lungs, Mediastinum, Bony Structures and No Acute Disease Diagnostic Testing: Clinical Impression(s) from Imaging Studies Chest X-Ray 10/15/23 09:27 IMPRESSION: Normal x-ray examination of the chest. Electronically Signed: Tay Ochoa MD at 9:37 EDT , Chest x-ray, 2 views, interpreted by myself and the radiologist shows no acute abnormality. Normal cardiac silhouette. Normal lung ellis. No pneumonia. No pneumothorax. No bony abnormalities. Discharge Plan Triage Chief Complaint: Abd Pain ED Provider: Rohit Richards Dx/Rx/DC Orders Clinical Impression: Viral URI, Acute chest wall pain Instructions: ED URI, Viral, No Abx (Adult) Prescriptions: No Action ibuprofen 800 MG tablet 800 mg PO TID PRN PRN (Reason: Pain) Qty: 20 0RF penicillin V potassium 500 MG tablet 500 mg PO 4X/DAY Qty: 40 0RF Primary Care Provider: Kerri Cartwright POLICE CHIEF DEPUTY Referrals: Care Physician,No Primary [Non-Staff] - Activity Restrictions/Additional Instructions: Tylenol and/or Motrin for pain. I think you have some chest wall inflammation you may have some inflammation of your lung lining. Chest x-ray looks good. No pneumonia. This is most likely a viral respiratory infection and should get better on its own. You do not need antibiotics. Follow-up with your primary care provider as needed. Print Language: Namibian Disposition Disposition: Home, Self Care
--- NOTE | 2023-10-15 09:27 | RAD_ITS ---
STUDY: X-RAY CHEST REASON FOR EXAM: Female, 18 years old. Right sided cp w/ uri TECHNIQUE: PA and lateral views of the chest. COMPARISON: Comparison is made with prior study dated December 05, 2022. FINDINGS: The lungs are clear and expanded. There is no demonstrated pleural abnormality. Normal size heart. Normal mediastinum and madhavi. Normal visualized pulmonary arteries. Normal visualized aortic arch and descending thoracic aorta. Normal visualized thoracic spine. Normal visualized ribs, clavicles, and shoulders. There is no demonstrated abnormality of the visualized soft tissue structures of the upper abdomen. RAD/Chest PA and Lateral IMPRESSION: Normal x-ray examination of the chest. Electronically Signed: Tay Ochoa MD at 9:37 EDT ,
[2023-10-15 09:49] VITALS: BP 117/87; PULSE 82; RESP 18; TEMP 36.6; O2SAT 98
== END 2023-10-15 09:56 | disposition home or self-care (01) ==
PROVIDERS: Emergency Provider Emergency Medicine; PCP Nurse Practitioner Family; Visit Provider Emergency Medicine
DX: J06.9 Acute upper respiratory infection, unspecified (principal); R07.89 Other chest pain
CPT/HCPCS: 71046; 99282

== ENCOUNTER 2024-07-28 21:57 | Emergency (ER) | payer MEDICAID, SELFPAY ==
[2024-07-28 21:58] VITALS: BP 127/98; PULSE 99; RESP 16; TEMP 36.6; O2SAT 99; BMI 37.4
[2024-07-28 22:00] VITALS: BP 127/98; PULSE 99; RESP 16; TEMP 36.6; O2SAT 99
--- NOTE | 2024-07-28 22:31 | EX.ED.DYSGE1 ---
HPI History of Present Illness Chief Complaint: Ear Problem Informant: patient and parent Narrative Narrative: Patient is a 19-year-old female with past medical history of IBS and Gilbert's disease. She states she developed left ear pain roughly 5 to 7 days ago and went to an urgent care on Friday and was placed on ofloxacin secondary to diagnosis of otitis externa. She states she has been using the drops as directed but now she feels like there is more pain into the left face and even into the neck region. She denies any fevers or chills or discharge from the ear. She denies any trouble breathing or swallowing. However with the worsening symptoms she presents for evaluation. [facility] Medical History (Updated 07/28/24 @ 22:[address] Rigo Weber DO) Irritable bowel syndrome [place] syndrome Home Medications ?Medication ?Instructions ?Recorded ?Last Taken ?Type ibuprofen 800 mg tablet 800 mg PO TID PRN PRN Pain #20 tabs 02/09/18 Unknown Rx penicillin V potassium 500 mg 500 mg PO 4X/DAY #40 tabs 02/09/18 Unknown Rx tablet amoxicillin 875 mg-potassium 1 tab PO BID 10 days #20 tabs 07/28/24 Unknown Rx clavulanate 125 mg tablet oxycodone-acetaminophen 5 mg-325 1 tab PO Q6H PRN pain 3 days #12 07/28/24 Unknown Rx mg tablet (Percocet) tabs Allergy/AdvReac Type Severity Reaction Status Date / Time mesalamine Allergy Intermediate Rash Verified 07/28/24 22:00 Environmental Allergies: Allergy Hives Verified 07/28/24 22:00 Uncoded Social History Smoking Status: Never smoker ROS ROS ED Constitutional Constitutional ED: Denies chills or fever(s) Eyes Eyes: Denies change in vision ENT ENT ED: Reports ear pain left and other Details: Positive left cheek/facial pain ; Denies rhinorrhea or sore throat Cardiovascular Cardiovascular: Denies chest pain Respiratory/Chest Respiratory/Chest: Denies cough or dyspnea Gastrointestinal Gastrointestinal: Denies abdominal pain, diarrhea, nausea or vomiting Genitourinary Genitourinary ED: Denies dysuria Musculoskeletal Musculoskeletal: Reports neck pain Integumentary Denies rash Neurologic Neurologic: Denies headache(s) Hematologic/Lymphatic Hematologic/Lymphatic: Denies easy bleeding or easy bruising Allergic/Immunologic Allergic/Immunologic ED: Denies mouth swelling, tongue swelling or urticaria EXAM Physical Exam Const Vital Signs: 07/28/24 21:58 07/28/24 22:00 Temperature 97.8 F 97.8 F Temperature Source Oral Oral Pulse Rate 99 99 Respiratory Rate 16 16 Blood Pressure 127/98 H 127/98 H Blood Pressure Mean 107 107 Pulse Ox 99 99 Oxygen Delivery Method Room Air Room Air Positive well nourished and well developed General Appearance ED: well developed HEENT Reports moist mucous membranes HEENT Narrative: No tongue or lip swelling no oral lesions no airway edema or compromise. No tonsillar hypertrophy no exudates no trismus no change in voice or difficulty with secretions There is mild increased swelling along the left lateral face/cheek consistent with with a inflamed/infected parotid gland No obvious abscess formation noted The left ear canal slightly erythematous and swollen. There is no discharge noted. There is pain with external relation of the outer ear. No soft tissue changes to suggest cellulitis/erysipelas or malignant otitis externa No pain with palpation of either mastoid region Eyes PERRL and EOMs intact bilaterally Neck supple Neck Narrative: No nuchal rigidity or meningeal signs noted Resp normal respiratory effort and clear to auscultation bilaterally Cardio regular rate and regular rhythm Extremity normal to inspection Neuro oriented x3, CN's II-XII intact bilaterally and no sensory deficits noted Sensorium / Orientation: alert Motor Exam: strength 5/5 throughout Psych mental status grossly normal Skin no rashes or lesions noted Skin Narrative: Mild soft tissue swelling along the left cheek/face as document above concerning for acute parotiditis No cellulitis or abscess formation noted MDM MDM MDM Narrative Medical decision making narrative: Patient arrived to the ER with stable vitals. She reported using eardrops for the last 2 to 3 days but having persistent pain and as she reported she felt like the symptoms were beginning to radiate or move. Differential diagnosis is for otitis media otitis externa mastoiditis acute parotitis vs lymphadenitis. Patient presented with stable vitals. Physical exam does not suggest otitis externa or malignant otitis externa and she does not have pain over the mastoids going against acute mastoiditis. There is not a significant lymph node swelling and no soft tissue skin changes over top them going against lymphadenitis. The patient's left ear does not show any soft tissue changes concerning for malignant otitis externa. By physical exam with mild facial swelling in the left cheek this is most likely acute parotitis . As history and exam do not suggest systemic infection I do not feel there is need for imaging or lab work at this time. Patient will stay on the ofloxacin as it does appear to be treating the otitis externa but Augmentin will be added secondary to the acute parotiditis. As there is low concern for systemic infection I do not feel need for further workup and patient is otherwise safe for discharge History & Record Review Discussion w/independent historian: Patient Discharge Plan Triage Chief Complaint: Ear Problem ED Provider: Rigo Weber Dx/Rx/DC Orders Clinical Impression: Otitis externa of left ear, Acute parotitis, IBS (irritable bowel syndrome), Gilbert's disease Instructions: ED Salivary Gland Infection, ED External Ear Infection (Adult) Prescriptions: New oxycodone-acetaminophen [Percocet] 5-325 mg tablet 1 tab PO Q6H PRN (Reason: pain) 3 Days Qty: 12 0RF amoxicillin-pot clavulanate 875-125 mg tablet 1 tab PO BID 10 Days Qty: 20 0RF No Action ibuprofen 800 MG tablet 800 mg PO TID PRN PRN (Reason: Pain) Qty: 20 0RF penicillin V potassium 500 MG tablet 500 mg PO 4X/DAY Qty: 40 0RF Primary Care Provider: Kerri Cartwright NP Referrals: Kerri Cartwright NP, ELECTRONIC SERVICE TECHNICIAN-C [Primary Care Provider] - Activity Restrictions/Additional Instructions: Please continue the ofloxacin eardrops you are put on by urgent care but add the Augmentin as I feel you have a parotid gland infection. Use the pain medication as directed to help reduce pain while the antibiotic takes effect. It will typically take 2 to 3 days for this to occur. If you develop increased facial swelling or fever or have any further concerns please return to the ER for repeat evaluation Print Language: [place] Islander Disposition Disposition: Home, Self Care Discharge Date/Time: 07/28/24 22:50
[2024-07-28] MEDS: Amox/Clavulanate 875 MG Tablet PO (22:42)
[2024-07-28] MEDS: oxyCODONE 5 MG Tablet 10 MG PO (22:42)
== END 2024-07-28 22:50 | disposition home or self-care (01) ==
PROVIDERS: Emergency Provider Emergency Medicine; PCP Nurse Practitioner Family; Visit Provider Emergency Medicine
DX: H60.92 Unspecified otitis externa, left ear (principal); K11.20 Sialoadenitis, unspecified; K58.9 Irritable bowel syndrome, unspecified; E80.4 Gilbert syndrome
CPT/HCPCS: 99282

== ENCOUNTER 2024-11-30 08:49 | Emergency (ER) | payer MEDICAID, SELFPAY ==
[2024-11-30] VITALS (9 sets, daily range): BP systolic 123–134; BP diastolic 72–97; PULSE 120–140; RESP 20–26; TEMP 37.2–37.6; O2SAT 91–94; BMI 36.0
--- NOTE | 2024-11-30 09:01 | EKG12_ITS ---
Test Reason : SOB/CP Blood Pressure : */* mmHG Vent. Rate : 129 BPM Atrial Rate : 129 BPM P-R Int : 152 ms QRS Dur : 80 ms QT Int : 286 ms P-R-T Axes : 54 81 23 degrees QTcB Int : 418 ms Sinus tachycardia Otherwise normal ECG Confirmed by ROSEMARY JAIME, KAUSHIK ([id number]), script editor COLEEN PASCAL ([id number]) on 12/01/2024 8:32:49 AM Referred By: ES/RU Confirmed By: KAUSHIK RILEY MD
--- NOTE | 2024-11-30 09:02 | EDS_ITS ---
HPI History of Present Illness Chief Complaint: Fever Detail of Chief Complaint: Fever and shortness of breath Informant: patient and parent Narrative Narrative: Patient presents to the emergency department with complaint of fever and illness that started 2 days ago. She started having shortness of breath yesterday. She has been using her inhaler at home without improvement. 3 other family members at home ill with similar types symptoms. Patient fever up to 102. She bring up some clear phlegm. She complains of headache and bodyaches. 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 [facility] Medical History (Updated 11/30/24 @ 10:[address] Jimbo Lacey, DO) Irritable bowel syndrome [place] syndrome Home Medications ?Medication ?Instructions ?Recorded ?Last Taken ?Type ibuprofen 800 mg tablet 800 mg PO TID PRN PRN Pain # 20 tabs 02/09/18 Unknown Rx penicillin V potassium 500 mg 500 mg PO 4X/DAY #40 tab s 02/09/18 Unknown Rx tablet amoxicillin 875 mg-potassium 1 tab PO BID 10 days #20 tabs 07/28/24 Unknown Rx clavulanate 125 mg tablet oxycodone-acetaminophen 5 mg-325 1 tab PO Q6H PRN pain 3 days #12 07/28/24 Unknown Rx mg tablet (Percocet) tabs prednisone 20 mg tablet 20 mg PO BID #10 tabs Unknown Rx Allergy/AdvReac Type Severity Reaction Status Date / Time mesalamine Allergy Intermediate Rash Verified 07/28/24 22:00 Environmental Allergies: Allergy Hives Verified 07/28/24 22:00 Uncoded Social History Smoking Status: Never smoker ROS ROS ED Review of Systems ROS Unobtainable: other Constitutional Constitutional ED: Reports fever(s) and lethargy; Denies chills, sweats or weight loss Eyes Eyes: Denies blurry vision, change in vision or diplopia ENT ENT ED: Denies rhinorrhea or sore throat Cardiovascular Cardiovascular: Denies chest pain, orthopnea or racing heartbeat Respiratory/Chest Respiratory/Chest: Reports cough, dyspnea and dyspnea on exertion; Denies orthopnea or sputum Gastrointestinal Gastrointestinal: Denies abdominal pain, diarrhea, nausea or vomiting Genitourinary Genitourinary ED: Denies dysuria, hematuria or urinary frequency Musculoskeletal Musculoskeletal: Reports myalgias; Denies arthralgias, back pain or neck pain Integumentary Denies abscess, Abrasions or rash Neurologic Neurologic: Reports headache(s); Denies weakness Psychiatric Psychiatric: Denies anxiety, depression or suicidal thoughts Endocrine Endocrinology: Denies polydipsia, polyphagia or polyuria Hematologic/Lymphatic Hematologic/Lymphatic: Denies easy bleeding, easy bruising or lymphadenopathy Allergic/Immunologic Allergic/Immunologic ED: Denies mouth swelling, tongue swelling or urticaria EXAM Physical Exam Const Vital Signs: 11/30/24 08:50 11/30/24 08:57 11/30/24 08:57 Temperature 98.9 F 99.1 F Temperature Source Oral Oral Pulse Rate 128 H 120 H Respiratory Rate 26 H 20 H Respiratory Effort Normal Respiratory Depth Respiratory Pattern Blood Pressure 134/97 H 130/92 H Blood Pressure Mean 109 104 Pulse Ox 91 93 Oxygen Delivery Method Nasal Cannula Nasal Cannula Oxygen Flow Rate (L/min) 2 2 11/30/24 08:59 11/30/24 09:02 11/30/24 09:08 Temperature Temperature Source Pulse Rate 120 H Respiratory Rate 20 H Respiratory Effort Short of Breath Respiratory Depth Shallow Respiratory Pattern Normal Blood Pressure Blood Pressure Mean Pulse Ox 93 Oxygen Delivery Method Nasal Cannula Nasal Cannula Oxygen Flow Rate (L/min) 2 11/30/24 09:51 11/30/24 09:51 Temperature 99.4 F H Temperature Source Oral Pulse Rate 140 H 140 H Respiratory Rate 20 H Respiratory Effort Respiratory Depth Respiratory Pattern Blood Pressure 130/76 H 125/72 H Blood Pressure Mean 94 89 Pulse Ox 94 Oxygen Delivery Method Nasal Cannula Oxygen Flow Rate (L/min) Positive well nourished and well developed General Appearance ED: well developed and NAD HEENT Reports TM's clear and moist mucous membranes normocephalic and atraumatic; Negative for trauma or tenderness Tympanic Membrane ED: Yes TM's clear Eyes PERRL and EOMs intact bilaterally General Eye ED: Negative for pale conjunctiva or scleral icterus Neck no lymphadenopathy, supple and no JVD General: Negative for tenderness Chest Wall inspection of chest normal and palpation of chest normal Chest: Negative for tenderness Resp No normal respiratory effort and No clear to auscultation bilaterally Resp Narrative: Mild tachypnea. No accessory muscle use or retractions. Patient noted to be hypoxic with pulse ox of 88% on room air Effort and Inspection: Negative for respiratory distress or pain with movement Auscultation: wheezes; Negative for rhonchi or diminished lung sounds Cardio regular rate, regular rhythm, S1 normal heart sound, S2 normal heart sound and no murmurs Peripheral Pulses: pulses 2+ throughout GI normal to inspection, nondistended, normoactive bowel sounds, soft to palpation, non-tender, non-distended and no masses Back/Spine no CVA tenderness and no thoracic nor lumbar tenderness Extremity normal to inspection General Extremety ED: Negative for edema General Extremity: Negative for edema Neuro oriented x3, CN's II-XII intact bilaterally, no sensory deficits noted and gait normal Sensorium / Orientation: awake, alert, oriented to person, oriented to place and oriented to time Motor Exam: strength 5/5 throughout and strength abnormal Psych mental status grossly normal Skin no rashes or lesions noted and no wounds MDM MDM MDM Narrative Medical decision making narrative: Patient presents with 2-day history of fever and cough. Sick family members with similar symptoms. Initially hypoxic on arrival with pulse ox of 88% and she was tachypneic. Low-grade fever. She was tachycardic. In the differential would be pneumonia versus asthmatic bronchitis related to viral infection. Less likely PE or pneumothorax. IV line established. She was given DuoNeb aerosol followed by albuterol aerosols. She started on Solu-Medrol IV. CBC with differential white of 14.9 with hemoglobin 14.2 and platelet count 235. Chemistries were unremarkable. Lactate was normal at 2.0. Patient had a chest x-ray that showed no evidence of infiltrate or pneumothorax or acute disease process. COVID flu and RSV testing was negative. After treatment she felt markedly improved. She was able to ambulate in the department and her O2 sat on room air maintained above 92%. Continues to be slightly tachycardic which I would expect after receiving albuterol and DuoNebs. Also low-grade fever. Will start her on prednisone for home. Will dispense an albuterol MDI with spacer. Advised to follow-up with primary care physician within next 3 to 5 days. Vies to return to the ER if increasing dyspnea or condition should worsen anyway. Lab Data Attestation: I reviewed the patient's lab results. Labs: Laboratory Results - last 24 hr 11/30/24 09:05 WBC 14.9 H RBC 4.53 Hgb 14.2 Hct 42.3 MCV 93.4 MCH 31.3 MCHC 33.6 RDW Std Deviation 41.8 RDW Coeff of [place] 12.1 Plt Count 235 MPV 10.7 Immature Gran % (Auto) 0.400 Neut % (Auto) 77.8 H Lymph % (Auto) 12.6 L [place] % (Auto) 7.8 Eos % (Auto) 0.9 Baso % (Auto) 0.5 Absolute Neuts (auto) 11.6 H Absolute Lymphs (auto) 1.88 Nucleated RBC % 0 Sodium 137 Potassium 4.1 Chloride 104 Carbon Dioxide 18.8 L Anion Gap 14 BUN 5 Creatinine 0.72 Estim Creat Clear Calc 143.45 Est GFR (MDRD) Non-Af 122 BUN/Creatinine Ratio 7.1 L Glucose 108 H Lactic Acid 2.0 Calcium 9.5 Radiography Diagnostic Testing: Clinical Impression(s) from Imaging Studies Chest X-Ray 11/30/24 09:15 IMPRESSION: No Acute Findings. Reading Location: [facility] 1 view chest x-ray obtained interpreted by myself as no evidence of infiltrate or pneumothorax or acute disease process. Radiology in agreement. EKG Initial EKG: Attestation: I personally reviewed and interpreted this EKG as follows: Comments: Sinus rhythm with ventricular rate of 129 bpm with no acute ST segment changes Discharge Plan Triage Chief Complaint: Fever Other Complaint: Shortness of Breath ED Provider: Jimbo Lacey Dx/Rx/DC Orders Clinical Impression: Acute asthmatic bronchitis Instructions: ED Bronchitis with Wheezing (Adult) Prescriptions: New prednisone 20 mg tablet 20 mg PO BID Qty: 10 0RF No Action ibuprofen 800 MG tablet 800 mg PO TID PRN PRN (Reason: Pain) Qty: 20 0RF penicillin V potassium 500 MG tablet 500 mg PO 4X/DAY Qty: 40 0RF oxycodone-acetaminophen [Percocet] 5-325 mg tablet 1 tab PO Q6H PRN (Reason: pain) 3 Days Qty: 12 0RF amoxicillin-pot clavulanate 875-125 mg tablet 1 tab PO BID 10 Days Qty: 20 0RF Primary Care Provider: Kerri Cartwright MUD ANALYSIS OPERATOR Referrals: Kerri Cartwright MUD ANALYSIS OPERATOR, [facility] ANALYSIS OPERATOR[facility] [Primary Care Provider] - 3-5 Days Print Language: Macedonian Disposition Disposition: Home, Self Care
[2024-11-30] MEDS: Albuterol 2.5 MG/3 ML VIAL.NEB. INHALATION ×3 (09:05)
--- NOTE | 2024-11-30 09:15 | RAD_ITS ---
PROCEDURE: CHEST 1 VIEW (PORTABLE) 11/30/2024 REASON FOR EXAM: COUGH Fever and shortness of breath. TECHNIQUE: Frontal view of the chest. COMPARISON: Prior study dated December 05, 2022. FINDINGS: Hardware: EKG electrodes are seen. Heart: Cardiac and mediastinal contours are stable. Lungs: The lungs are clear. Bones: The bones are unremarkable. Other: RAD/Chest 1 View (Portable) IMPRESSION: No Acute Findings. Reading Location: [id number]
[2024-11-30 09:21] LABS: Hematocrit 42.3 % (37-47); Hemoglobin 14.2 g/dL (12.0-15.0); Immature Granulocytes Count 0.060 X10^3/uL (0.0-0.0); Mean Corp Hgb Conc 33.6 g/dL (32-36); Mean Corpuscular Volume 93.4 fL (81-99); Mean Platelet Vol. 10.7 fl (6.2-12.0); NRBC Flagged by Analyzer 0 % (0-5); Platelet Count 235 K/mm3 (150-450); RBC Distribution Width CV 12.1 % (11.6-14.6); RBC Distribution Width SD 41.8 fl (35.1-43.9); Red Blood Count 4.53 M/mm3 (4.2-5.4); White Blood Count 14.9 K/mm3 (4.4-11.0)
[2024-11-30] MEDS: 0.9% Normal Saline (1000mL) 1,000 ML 999 ML IV (09:32)
[2024-11-30 10:01] LABS: Anion Gap 14 (5-15); BUN 5 mg/dL (4-19); BUN/Creat Ratio 7.1 RATIO (10-20); Calcium,Total 9.5 mg/dL (7.6-11.0); Carbon Dioxide 18.8 mmol/L (21.0-32.0); Chloride 104 mmol/L (98-108); Estimated Creatinine Clearance 143.45 ml/min (50-250); Glucose 108 mg/dL (70-99); Potassium 4.1 mmol/L (3.3-5.1)
[2024-11-30 13:12] LABS: Reflex Lactate? Y
== END 2024-11-30 11:13 | disposition home or self-care (01) ==
PROVIDERS: Emergency Provider Emergency Medicine; PCP Nurse Practitioner Family; Visit Provider Emergency Medicine
DX: J45.909 Unspecified asthma, uncomplicated (principal); R50.9 Fever, unspecified; R06.02 Shortness of breath; R51.9 Headache, unspecified
CPT/HCPCS: 71045; 80048; 83605; 85025; 87040; 87631; 93005; 94640; 94664; 96374; 99285; A4216

== ENCOUNTER 2024-12-01 10:05 | Inpatient (IN) | payer MEDICAID, SELFPAY ==
[2024-12-01] VITALS (12 sets, daily range): BP systolic 112–147; BP diastolic 63–88; PULSE 94–130; RESP 12–21; TEMP 36.4–37.6; O2SAT 91–96; BMI 34.1; BMI 35.2
--- NOTE | 2024-12-01 10:23 | EX.ED.DYSGE1 ---
HPI History of Present Illness Chief Complaint: Asthma Detail of Chief Complaint: Not feeling well and shortness of Informant: patient Narrative Narrative: Patient presents the emergency department complaint shortness of breath and not feeling well. Patient was seen in the emergency department by myself yesterday for same complaint. Multiple sick contacts at home. She had had a fever. She has history of asthma. Yesterday she was given steroids and breathing treatments. Her workup showed no evidence of pneumonia on x-ray yesterday and lab workup was unremarkable. COVID flu RSV testing was negative. Suspect an asthmatic bronchitis exacerbation. She continues to complain of exertional dyspnea and wheezing today. She was sent home with an inhaler with spacer yesterday. [facility] Medical History (Updated 12/01/24 @ 11:[address] Jimbo Lacey DO) Asthma Irritable bowel syndrome [place] syndrome Home Medications ?Medication ?Instructions ?Recorded ?Last Taken ?Type ibuprofen 800 mg tablet 800 mg PO TID PRN PRN Pain #20 tabs 02/09/18 Unknown Rx penicillin V potassium 500 mg 500 mg PO 4X/DAY #40 tabs 02/09/18 Unknown Rx tablet amoxicillin 875 mg-potassium 1 tab PO BID 10 days #20 tabs 07/28/24 Unknown Rx clavulanate 125 mg tablet oxycodone-acetaminophen 5 mg-325 1 tab PO Q6H PRN pain 3 days #12 07/28/24 Unknown Rx mg tablet (Percocet) tabs prednisone 20 mg tablet 20 mg PO BID #10 tabs 11/30/24 Unknown Rx Allergy/AdvReac Type Severity Reaction Status Date / Time mesalamine Allergy Intermediate Rash Verified 12/01/24 10:08 Environmental Allergies: Allergy Hives Verified 12/01/24 10:08 Uncoded Social History Smoking Status: Never smoker ROS ROS ED Review of Systems ROS Unobtainable: other Constitutional Constitutional ED: Reports lethargy; Denies chills, fever(s), sweats or weight loss Eyes Eyes: Denies blurry vision, change in vision or diplopia ENT ENT ED: Denies rhinorrhea or sore throat Cardiovascular Cardiovascular: Denies chest pain, orthopnea or racing heartbeat Respiratory/Chest Respiratory/Chest: Reports cough, dyspnea and dyspnea on exertion; Denies orthopnea or sputum Gastrointestinal Gastrointestinal: Denies abdominal pain, diarrhea, nausea or vomiting Genitourinary Genitourinary ED: Denies dysuria, hematuria or urinary frequency Musculoskeletal Musculoskeletal: Denies arthralgias, back pain, myalgias or neck pain Integumentary Denies abscess, Abrasions or rash Neurologic Neurologic: Reports headache(s); Denies weakness Psychiatric Psychiatric: Denies anxiety, depression or suicidal thoughts Endocrine Endocrinology: Denies polydipsia, polyphagia or polyuria Hematologic/Lymphatic Hematologic/Lymphatic: Denies easy bleeding, easy bruising or lymphadenopathy Allergic/Immunologic Allergic/Immunologic ED: Denies mouth swelling, tongue swelling or urticaria EXAM Physical Exam Const Vital Signs: 12/01/24 10:06 12/01/24 10:17 12/01/24 10:17 Temperature 97.9 F 97.9 F Temperature Source Oral Oral Pulse Rate 116 H 103 H 103 H Respiratory Rate 18 21 H 21 H Respiratory Effort Respiratory Depth Respiratory Pattern Blood Pressure 126/88 H 112/84 H 112/84 H Blood Pressure Mean 100 93 93 Pulse Ox 92 93 93 Oxygen Delivery Method Room Air Room Air Room Air 12/01/24 10:33 12/01/24 10:36 12/01/24 11:17 Temperature 98.1 F Temperature Source Oral Pulse Rate 101 H 130 H Respiratory Rate 12 20 H Respiratory Effort Labored Respiratory Depth Shallow Respiratory Pattern Normal Tachypnea Blood Pressure 124/69 H Blood Pressure Mean 87 Pulse Ox 91 Oxygen Delivery Method Room Air Room Air Positive well nourished and well developed General Appearance ED: well developed and NAD HEENT Reports TM's clear and moist mucous membranes normocephalic and atraumatic; Negative for trauma or tenderness Tympanic Membrane ED: Yes TM's clear Eyes PERRL and EOMs intact bilaterally General Eye ED: Negative for pale conjunctiva or scleral icterus Neck no lymphadenopathy, supple and no JVD General: Negative for tenderness Chest Wall inspection of chest normal and palpation of chest normal Chest: Negative for tenderness Resp No normal respiratory effort and No clear to auscultation bilaterally Resp Narrative: Patient with some tachypnea. No accessory muscle use or retractions. She has expiratory wheezes bilaterally with some slightly diminished breath sounds bilaterally. Effort and Inspection: Negative for respiratory distress or pain with movement Auscultation: wheezes; Negative for rhonchi or diminished lung sounds Cardio regular rate, regular rhythm, S1 normal heart sound, S2 normal heart sound and no murmurs Peripheral Pulses: pulses 2+ throughout GI normal to inspection, nondistended, normoactive bowel sounds, soft to palpation, non-tender, non-distended and no masses Back/Spine no CVA tenderness and no thoracic nor lumbar tenderness Extremity normal to inspection General Extremety ED: Negative for edema General Extremity: Negative for edema Neuro oriented x3, CN's II-XII intact bilaterally, no sensory deficits noted and gait normal Sensorium / Orientation: awake, alert, oriented to person, oriented to place and oriented to time Motor Exam: strength 5/5 throughout and strength abnormal Psych mental status grossly normal Skin no rashes or lesions noted and no wounds MDM MDM MDM Narrative Medical decision making narrative: Patient presents the emergency department with complaint of difficulty breathing. Second visit in the last 24 hours for same. This morning she states she had a little bit of burning with urination which she did not have yesterday. IV line established. She was given DuoNeb aerosol and albuterol aerosols. CBC with differential obtained showed a white count 11.2 with hemoglobin 14.3 and platelet count of 240. Chemistries were unremarkable. Urinalysis positive for 500 leukocyte esterase as well as 50-100 WBCs and +2 bacteria. Urine culture sent. Patient started on Rocephin 1 g IV. After treatment she feels a little bit improved as far as breathing but as I was discussing her results she states that her wheezing again is starting to return. She still tachycardic and tachypneic. Will discuss with hospitalist to evaluate for admission for asthmatic bronchitis and UTI. Lab Data Attestation: I reviewed the patient's lab results. Labs: Laboratory Results - last 24 hr 12/01/24 12/01/24 10:26 11:05 WBC 11.2 H RBC 4.56 Hgb 14.3 Hct 42.7 MCV 93.6 MCH 31.4 MCHC 33.5 RDW Std Deviation 41.6 RDW Coeff of [place] 12.0 Plt Count 240 MPV 10.5 Immature Gran % (Auto) 0.400 Neut % (Auto) 59.9 Lymph % (Auto) 30.7 [place] % (Auto) 7.7 Eos % (Auto) 0.9 Baso % (Auto) 0.4 Absolute Neuts (auto) 6.7 Absolute Lymphs (auto) 3.44 Nucleated RBC % 0 Sodium 139 Potassium 3.8 Chloride 105 Carbon Dioxide 19.7 L Anion Gap 15 BUN 11 Creatinine 0.69 L Estim Creat Clear Calc 145.45 Est GFR (MDRD) Non-Af 126 BUN/Creatinine Ratio 15.3 Glucose 95 Calcium 9.8 Urine Color Yellow Urine Clarity Cloudy Urine pH 6.0 Ur Specific [place] 1.020 Urine Protein 30 H Urine Glucose (UA) Normal Urine Ketones 5 H Urine Occult Blood 150 H Urine Nitrite Negative Urine Bilirubin 1 H Urine Urobilinogen 4 H Ur Leukocyte Esterase 500 H Urine RBC 0-5 SEEN Urine WBC 50-100 SEEN Ur Squamous Epith Cells 10-25 SEEN Urine Bacteria 2+ Urine Mucus 2+ Discharge Plan Triage Chief Complaint: Asthma Other Complaint: Shortness of Breath ED Provider: Jimbo Lacey Dx/Rx/DC Orders Clinical Impression: Asthmatic bronchitis, UTI (urinary tract infection) Prescriptions: No Action ibuprofen 800 MG tablet 800 mg PO TID PRN PRN (Reason: Pain) Qty: 20 0RF penicillin V potassium 500 MG tablet 500 mg PO 4X/DAY Qty: 40 0RF oxycodone-acetaminophen [Percocet] 5-325 mg tablet 1 tab PO Q6H PRN (Reason: pain) 3 Days Qty: 12 0RF amoxicillin-pot clavulanate 875-125 mg tablet 1 tab PO BID 10 Days Qty: 20 0RF prednisone 20 mg tablet 20 mg PO BID Qty: 10 0RF Primary Care Provider: Kerri Cartwright NP Referrals: Kerri Cartwright NP, [facility] [Primary Care Provider] - Print Language: Mexican Disposition Disposition: Acute Care Hospital [facility]
[2024-12-01] MEDS: Albuterol 2.5 MG/3 ML VIAL.NEB. INHALATION ×4 (10:30→19:51)
[2024-12-01] MEDS: 0.9% Normal Saline (1000mL) 1,000 ML 1000 ML IV (10:33)
[2024-12-01] MEDS: Ketorolac 30 MG/ML Syringe IV (10:34)
[2024-12-01 10:35] LABS: Hematocrit 42.7 % (37-47); Hemoglobin 14.3 g/dL (12.0-15.0); Immature Granulocytes Count 0.040 X10^3/uL (0.0-0.0); Mean Corp Hgb Conc 33.5 g/dL (32-36); Mean Corpuscular Volume 93.6 fL (81-99); Mean Platelet Vol. 10.5 fl (6.2-12.0); NRBC Flagged by Analyzer 0 % (0-5); Platelet Count 240 K/mm3 (150-450); RBC Distribution Width CV 12.0 % (11.6-14.6); RBC Distribution Width SD 41.6 fl (35.1-43.9); Red Blood Count 4.56 M/mm3 (4.2-5.4); White Blood Count 11.2 K/mm3 (4.4-11.0)
[2024-12-01 10:53] LABS: Anion Gap 15 (5-15); BUN 11 mg/dL (4-19); BUN/Creat Ratio 15.3 RATIO (10-20); Calcium,Total 9.8 mg/dL (7.6-11.0); Carbon Dioxide 19.7 mmol/L (21.0-32.0); Chloride 105 mmol/L (98-108); Estimated Creatinine Clearance 145.45 ml/min (50-250); Glucose 95 mg/dL (70-99); Potassium 3.8 mmol/L (3.3-5.1)
[2024-12-01 11:16] LABS: Color, Urine Yellow (Yellow); Glucose, Dipstick Normal (Normal); Ketone-Dipstick 5 mg/dl (Negative); Leukocyte Esterase-Dipstick 500 /ul (Negative); Nitrite-Dipstick Negative (Negative); Occult Blood-Urine 150 /ul (Negative); Protein-Dipstick 30 mg/dl (Negative); Specific Gravity, Urine 1.020 (1.002-1.030)
[2024-12-01 11:18] LABS: Urine Bilirubin Dipstick 1 mg/dL (Negative)
[2024-12-01 11:26] LABS: Red Blood Cells-Urine 0-5 SEEN /hpf (0-5); Squamous Epithelial Cells - UA 10-25 SEEN /hpf (5-10)
[2024-12-01 11:27] LABS: Mucous, Urine 2+ /hpf (<or=2+)
--- NOTE | 2024-12-01 11:55 | ED.RN ---
THIS NURSE ATTEMPTED TO DO MED REC, POP UP REA KEPT STATING DR Haywood WAS IN THE CHART, I COULD NOT ACCESS TO MAKE CHANGES
[2024-12-01] MEDS: 0.9% Normal Saline (1000mL) 1,000 ML 125 ML IV ×2 (13:21→21:17)
[2024-12-01] MEDS: 0.9% Saline Lock 10 ML Syringe IV (13:53)
--- NOTE | 2024-12-01 15:34 | NURSING ---
respiratory notified that a respiratory panel has been ordered.
--- NOTE | 2024-12-01 17:37 | NURSING ---
pt reports she chipped her tooth while eating [place]arez at dinner tonight, it did not chip of completely it is still hanging. she denied swallowing a chip. She pointed to her two front teeth and both of them have cavities.
--- NOTE | 2024-12-01 17:39 | PCM.HP.STD ---
HPI - General General Date of Admission: 12/01/24 Date of Service: 12/01/24 Chief Complaint: Shortness of breath, asthma HPI Narrative EDGAR NAVA, is a 19 F who presents to the emergency room at [facility] with complaints of shortness of breath and wheezing times several days. Patient denies any fever or chills. Patient has a history of asthma and is on an albuterol inhaler chronically. She had been seen in the emergency room yesterday, given aerosol treatments and prednisone and felt improved, she was then discharged to home. Patient returns today with no improvement in her shortness of breath and wheezing. Workup in the emergency room included a CBC which showed a slightly elevated white blood cell count of 11.2, chemistry profile was unremarkable, patient's pulse ox on room air was 91%. Patient was given an aerosol treatment and oral prednisone in the ER today without appreciable improvement in her shortness of breath. Patient will be admitted to [place] [address], she will be given aerosol treatments and IV Solu-Medrol, pulse ox will be monitored. [facility] Medical History (Updated 12/01/24 @ 13:12 by Daija Cantu) Colitis Ganglion cyst Asthma Irritable bowel syndrome [place] syndrome Home Medications ?Medication ?Instructions ?Recorded ?Last Taken ?Type albuterol sulfate 90 mcg/actuation 2 puff inhalation Q4H PRN 12/01/24 Unknown History aerosol inhaler cyproheptadine 4 mg tablet 4 mg PO DAILY 12/01/24 12/01/24 History cyproheptadine 4 mg tablet 8 mg PO QHS 12/01/24 11/30/24 History norethindrone acetate 1.5 1 tab PO DAILY 12/01/24 11/30/24 History mg-ethinyl estradiol 30 mcg tablet (Aurovela) ondansetron 4 mg disintegrating 4 mg PO Q8H PRN PRN nausea 12/01/24 11/30/24 History tablet rifaximin 550 mg tablet (Xifaxan) 550 mg PO BID 12/01/24 12/01/24 History rosuvastatin 10 mg tablet 10 mg PO QHS 12/01/24 11/30/24 History cephalexin 500 mg capsule 500 mg PO TID #16 caps 12/02/24 Unknown Rx prednisone 20 mg tablet 40 mg (2 x 20 mg) PO DAILY #15 tabs 12/02/24 Unknown Rx Allergy/AdvReac Type Severity Reaction Status Date / Time mesalamine Allergy Intermediate Rash Verified 12/01/24 10:08 Environmental Allergies: Allergy Hives Verified 12/01/24 10:08 Uncoded Social History Smoking Status: Never smoker ROS Constitutional Constitutional: Denies anorexia, change in weight, fever(s), night sweats or weakness Eyes Eyes: Denies blurry vision, change in vision, discharge from eye(s) or eye pain Cardiovascular Cardiovascular: Reports dyspnea on exertion; Denies chest pain, claudication, edema or palpitations Respiratory/Chest Respiratory/Chest: Reports dyspnea, shortness of breath at rest, shortness of breath with exertion and wheezing; Denies cough or hemoptysis Gastrointestinal Gastrointestinal: Denies abdominal pain, constipation, diarrhea, hematemesis, hematochezia, melena, nausea or vomiting Genitourinary Genitourinary: Denies dysuria, hematuria, urinary frequency, urinary hesitancy, urinary incontinence or urinary urgency Musculoskeletal Musculoskeletal: Denies back pain, joint pain, joint stiffness, joint swelling, myalgias or neck pain Neurologic Neurologic: Denies abnormal gait, abnormal speech, dizziness, focal weakness, headache(s), loss of vision, numbness, other visual disturbances, paresthesias, syncope or tingling Psychiatric Psychiatric: Denies anxiety, cognitive impairment, depression, irritability, mood swings or suicidal ideation Endocrine Endocrinology: Denies change in body appearance, cold intolerance, excessive sweating, heat intolerance, polydipsia or polyuria Hematologic/Lymphatic Hematologic/Lymphatic: Denies none, anemia, easy bleeding, easy bruising or lymphadenopathy Allergic/Immunologic Allergic/Immunologic: Denies rhinitis, urticaria, eczemia or asthma Vital Signs Vital Signs Vital Signs: 12/01/24 10:06 12/01/24 10:17 12/01/24 10:17 Temperature 97.9 F 97.9 F Temperature Source Oral Oral Pulse Rate 116 H 103 H 103 H Respiratory Rate 18 21 H 21 H Respiratory Effort Respiratory Depth Respiratory Pattern Blood Pressure 126/88 H 112/84 H 112/84 H Blood Pressure Mean 100 93 93 Blood Pressure Source Blood Pressure Position Blood Pressure Location Pulse Ox 92 93 93 Oxygen Delivery Method Room Air Room Air Room Air 12/01/24 10:33 12/01/24 10:36 12/01/24 11:17 Temperature 98.1 F Temperature Source Oral Pulse Rate 101 H 130 H Respiratory Rate 12 20 H Respiratory Effort Labored Respiratory Depth Shallow Respiratory Pattern Normal Tachypnea Blood Pressure 124/69 H Blood Pressure Mean 87 Blood Pressure Source Blood Pressure Position Blood Pressure Location Pulse Ox 91 Oxygen Delivery Method Room Air Room Air 12/01/24 11:53 12/01/24 12:00 12/01/24 13:06 Temperature 97.8 F 98.0 F 98.8 F Temperature Source Oral Oral Pulse Rate 121 H 122 H 110 H Respiratory Rate 19 H 18 18 Respiratory Effort Respiratory Depth Respiratory Pattern Blood Pressure 141/83 H 134/74 H 131/73 H Blood Pressure Mean 102 94 92 Blood Pressure Source Monitor Blood Pressure Position Semi-Fowlers Blood Pressure Location Right Arm Pulse Ox 95 96 96 Oxygen Delivery Method Room Air Room Air 12/01/24 13:26 12/01/24 16:32 Temperature 99.6 F H Temperature Source Oral Pulse Rate 110 H 112 H Respiratory Rate 18 Respiratory Effort Normal Respiratory Depth Normal Respiratory Pattern Normal Blood Pressure 130/63 H Blood Pressure Mean 85 Blood Pressure Source Monitor Blood Pressure Position Semi-Fowlers Blood Pressure Location Right Arm Pulse Ox 94 Oxygen Delivery Method Room Air Room Air Weight Weight: 96.116 kg Body Mass Index (BMI) 35.2 Physical Exam Const alert, oriented x3, no apparent distress and healthy appearing General Appearance: cooperative, well kempt and well developed Orientation / Consciousness: awake, oriented to person, oriented to place and oriented to time HEENT normocephalic and moist oral mucous membranes Eyes PERRL, EOMs intact bilaterally and conjunctivae normal Neck supple, no JVD, thyroid normal and no carotid bruits General: trachea midline Resp Resp Narrative: Auscultation of the lungs reveals diffuse expiratory wheezes bilaterally, no rhonchi were noted, patient appears comfortable at rest on room air Auscultation: wheezes; Negative for rales or rhonchi Cardio regular rate, regular rhythm, S1 normal heart sound, S2 normal heart sound, no murmurs, no rub and no gallops GI normal to inspection, nondistended, normoactive bowel sounds, soft to palpation, non-tender and non-distended Extremity no clubbing, cyanosis or edema Skin no rashes or lesions noted General Skin Exam: no breakdown Neuro oriented x3, CN's II-XII intact bilaterally, moves all extremities, no focal motor deficits and no sensory deficits noted Sensorium / Orientation: awake and alert Speech: speech normal Psych affect normal Results Lab / Micro Data 12/01/24 10:26 12/01/24 10:26 Labs: Laboratory Results - last 24 hr 12/01/24 10:26: WBC 11.2 H, RBC 4.56, Hgb 14.3, Hct 42.7, MCV 93.6, MCH 31.4, MCHC 33.5, RDW Std Deviation 41.6, RDW Coeff of [place] 12.0, Plt Count 240, MPV 10.5, Immature Gran % (Auto) 0.400, Neut % (Auto) 59.9, Lymph % (Auto) 30.7, Ware % (Auto) 7.7, Eos % (Auto) 0.9, Baso % (Auto) 0.4, Absolute Neuts (auto) 6.7, Absolute Lymphs (auto) 3.44, Nucleated RBC % 0, Sodium 139, Potassium 3.8, Chloride 105, Carbon Dioxide 19.7 L, Anion Gap 15, BUN 11, Creatinine 0.69 L, Estim Creat Clear Calc 145.45, Est GFR (MDRD) Non-Af 126, BUN/Creatinine Ratio 15.3, Glucose 95, Calcium 9.8 12/01/24 11:05: Urine Color Yellow, Urine Clarity Cloudy, Urine pH 6.0, Ur Specific [place] 1.020, Urine Protein 30 H, Urine Glucose (UA) Normal, Urine Ketones 5 H, Urine Occult Blood 150 H, Urine Nitrite Negative, Urine Bilirubin 1 H, Urine Urobilinogen 4 H, Ur Leukocyte Esterase 500 H, Urine RBC 0-5 SEEN, Urine WBC 50-100 SEEN, Ur Squamous Epith Cells 10-25 SEEN, Urine Bacteria 2+, Urine Mucus 2+ Assessment & Plan Assessment/Plan (1) UTI (urinary tract infection): PLAN: Plan 1. Acute flareup of chronic asthma-patient will be admitted to [facility], she will be placed on IV Solu-Medrol and receive aerosol treatments, I do not believe the patient needs to be on an antibiotic for asthma at this time #2 acute cystitis-patient will be placed on Keflex starting tomorrow, she received IV Rocephin in the emergency room. #3 irritable bowel syndrome-patient will remain on her home medications including Xifaxan Total clinical time spent by myself addressing the patient's medical issues, reviewing all of her data, and collaborating with patient's care team: 55-minute Charges/Coding Visit Charges Inpatient E&M: 46116 Init Hosp L2
[2024-12-01] MEDS: ETH ESTRADIOL PO (21:16)
[2024-12-01] MEDS: [UNRECOGNIZED DRUG - OTHER] PO (21:16)
[2024-12-02 04:00] VITALS: BP 124/80; PULSE 89; RESP 16; TEMP 36.9; O2SAT 99
[2024-12-02] MEDS: 0.9% Normal Saline (1000mL) 1,000 ML 125 ML IV (05:17)
[2024-12-02] MEDS: Albuterol 2.5 MG/3 ML VIAL.NEB. INHALATION ×2 (07:24→11:12)
[2024-12-02 07:25] VITALS: PULSE 75; RESP 16; O2SAT 98
[2024-12-02 10:00] VITALS: BP 118/71; PULSE 92; RESP 16; TEMP 36.8; O2SAT 94
--- NOTE | 2024-12-02 11:02 | DCINST_ITS ---
Discharge Instructions DC O2, CPAP, BIPAP needs Home O2 Discharge instructions: No Dressing / Incision Discharge Activity: Return to Normal Activity Weight Bearing Status: Full weight bearing Follow Up Care Test Results: Test results from this visit will be discussed in further detail at your follow- up appointment, if applicable. Discharge Plan Admission Admit Date/Time: 12/01/24 11:48 Primary Reason for Your Visit: Flareup of asthma, urinary tract infection Attending Provider: Neto Mcneill Primary Care Provider: Kerri Cartwright NP Instructions Additional Instructions / Restrictions: I recommend that you use your albuterol inhaler 2 puffs 4 times a day for the next 5 days, then you can use 2 puffs every 4 hours as needed Discharge Orders/Prescriptions Prescriptions: New cephalexin 500 mg Capsule 500 mg PO TID Qty: 16 0RF prednisone 20 mg tablet 40 mg PO DAILY Qty: 15 0RF Rx Instructions: 2 tabs daily for 5 days, then 1 tab daily until gone Continued albuterol sulfate 90 mcg/actuation HFA aerosol inhaler 2 puff inhalation Q4H PRN norethindrone ac-eth estradiol [Aurovela 1.5/30 (21)] 1.5-30 mg-mcg tablet 1 tab PO DAILY cyproheptadine 4 mg tablet 4 mg PO DAILY Rx Instructions: am ondansetron 4 mg tablet,disintegrating 4 mg PO Q8H PRN PRN (Reason: nausea) rosuvastatin 10 mg tablet 10 mg PO QHS Xifaxan 550 mg tablet 550 mg PO BID cyproheptadine 4 mg tablet 8 mg PO QHS Referrals / Follow Up: Kerri Cartwright NP, [employer] [Primary Care Provider] - In 1 Week Disposition Disposition (needs filled in before D/C Order can be placed): Home, Self Care
--- NOTE | 2024-12-02 11:08 | PCM.DC.SUM ---
Providers Date of Admission: 12/01/24 Date of Discharge: 12/02/24 Primary Care Physician: Kerri Cartwright, SARAH Reason For Visit: EXACERBATION OF ASTHMA Diagnosis Discharge Diagnosis (1) Asthma attack: Status: Acute Code(s): J45.901 - Unspecified asthma with (acute) exacerbation Plan 1. Acute flareup of chronic asthma-failed outpatient treatment-patient will be admitted to [facility], she will be placed on IV Solu-Medrol and receive aerosol treatments, I do not believe the patient needs to be on an antibiotic for asthma at this time #2 acute cystitis-patient will be placed on Keflex starting tomorrow, she received IV Rocephin in the emergency room. #3 irritable bowel syndrome-patient will remain on her home medications including Xifaxan Medications at Discharge Home Medications albuterol sulfate 90 mcg/actuation aerosol inhaler 2 puff inhalation Q4H PRN 12/01/24 cyproheptadine 4 mg tablet 4 mg PO DAILY 12/01/24 cyproheptadine 4 mg tablet 8 mg PO QHS 12/01/24 norethindrone acetate 1.5 mg-ethinyl estradiol 30 mcg tablet (Aurovela) 1 tab PO DAILY 12/01/24 ondansetron 4 mg disintegrating tablet 4 mg PO Q8H PRN PRN nausea 12/01/24 rifaximin 550 mg tablet (Xifaxan) 550 mg PO BID 12/01/24 rosuvastatin 10 mg tablet 10 mg PO QHS 12/01/24 cephalexin 500 mg capsule 500 mg PO TID #16 caps 12/02/24 prednisone 20 mg tablet 40 mg (2 x 20 mg) PO DAILY #15 tabs 12/02/24 Hospital Course Operations None Procedures None Summary of Care Provided Minutes Spent on Discharge: 31 Hospital Course: This 19-year-old white female was seen in the emergency room at [facility] with a chief complaint of shortness of breath and wheezing. She has a history of asthma and uses inhalers chronically, she was seen in the emergency room the day before and was given prednisone and sent home, she returns saying that she was not improved. Examination in the emergency room included a CBC which showed a slightly elevated white blood cell count, patient's pulse ox on room air was 91%. Patient was given aerosol treatments but continued to have wheezing, she was admitted to [place] [address] and placed on IV Solu-Medrol and aerosol treatments. Patient also had a urinary tract infection was placed on oral antibiotics. Patient improved rapidly in the hospital, on 12/02/2024, she was seen and examined: On examination she appeared in good health and spirits, she does not appear to be in any distress. Vital signs as documented. Skin warm and dry and without overt rashes. Neck without JVD, thyroid appears normal, trachea is midline, neck is supple. Lungs mild expiratory wheezes are scattered over both lungs, normal air movement was noted. Heart exam notable for regular rhythm, normal sounds and absence of murmurs, rubs or gallops. Abdomen unremarkable and without evidence of organomegaly, masses, or abdominal aortic enlargement, bowel sounds are present in all 4 quadrants, no abdominal tenderness was noted. Extremities nonedematous, no cyanosis was noted, no clubbing was noted. Neuro: Cranial nerves II through XII are grossly intact, no focal motor deficits were noted, sensation to light touch and pinprick is intact, motor exam 5/5 throughout. Psych: Patient is alert and oriented x3, she does not appear anxious or depressed, she does not appear agitated. On 12/02/2024, patient was seen and examined and felt to be in stable condition for discharge home Weight / BMI Weight Weight: 96.116 kg Body Mass Index (BMI) 35.2 ABG / Lab / Microbiology Data 12/01/24 10:26 12/01/24 10:26 Laboratory: Laboratory Results - last 24 hr 12/01/24 11:05: Urine Color Yellow, Urine Clarity Cloudy, Urine pH 6.0, Ur Specific [place] 1.020, Urine Protein 30 H, Urine Glucose (UA) Normal, Urine Ketones 5 H, Urine Occult Blood 150 H, Urine Nitrite Negative, Urine Bilirubin 1 H, Urine Urobilinogen 4 H, Ur Leukocyte Esterase 500 H, Urine RBC 0-5 SEEN, Urine WBC 50-100 SEEN, Ur Squamous Epith Cells 10-25 SEEN, Urine Bacteria 2+, Urine Mucus 2+ Microbiology: Microbiology 12/01/24 11:05 Urine, Clean Catch Urine Culture - Final Mixed Gram Positive Organisms 12/01/24 17:00 Mucosa - Nasopharyngeal Respiratory Panel (PCR) - Final D/C Instructions Weight Bearing Status: Full weight bearing DC O2, CPAP, BIPAP Needs Home O2 Discharge instructions: No Meaningful Use Info Meaningful Use Meaningful Use Diagnoses (Choose all that apply): None applicable Discharge Plan Admission Admit Date/Time: 12/01/24 11:48 Primary Reason for Your Visit: Flareup of asthma, urinary tract infection Attending Provider: Neto Mcneill Primary Care Provider: Kerri Cartwright [employer] Instructions Additional Instructions / Restrictions: I recommend that you use your albuterol inhaler 2 puffs 4 times a day for the next 5 days, then you can use 2 puffs every 4 hours as needed Discharge Orders/Prescriptions Prescriptions: New cephalexin 500 mg Capsule 500 mg PO TID Qty: 16 0RF prednisone 20 mg tablet 40 mg PO DAILY Qty: 15 0RF Rx Instructions: 2 tabs daily for 5 days, then 1 tab daily until gone Continued albuterol sulfate 90 mcg/actuation HFA aerosol inhaler 2 puff inhalation Q4H PRN norethindrone ac-eth estradiol [Aurovela 1.5/30 (21)] 1.5-30 mg-mcg tablet 1 tab PO DAILY cyproheptadine 4 mg tablet 4 mg PO DAILY Rx Instructions: am ondansetron 4 mg tablet,disintegrating 4 mg PO Q8H PRN PRN (Reason: nausea) rosuvastatin 10 mg tablet 10 mg PO QHS Xifaxan 550 mg tablet 550 mg PO BID cyproheptadine 4 mg tablet 8 mg PO QHS Referrals / Follow Up: Kerri Cartwright NP, [employer] [Primary Care Provider] - In 1 Week Disposition Disposition (needs filled in before D/C Order can be placed): Home, Self Care Charges/Coding Visit Charges Inpatient E&M: 16008 Disch Hosp >30min
[2024-12-02 11:13] VITALS: PULSE 89; RESP 16
--- NOTE | 2024-12-02 11:25 | CASEMGMT ---
Dx: Exacerbation of Asthma LACE: 2 6-Clicks: 24 Medical record reviewed and patient evaluated for identification of discharge planning needs. Based on this review, at this time criteria are not present to indicate a need for discharge planning. Will remain available to assist with discharge planning needs as identified or requested.
== END 2024-12-02 13:48 | disposition home or self-care (01) | DRG 141 ==
LOC: ED 11:42 → MS3 12:21
PROVIDERS: Admitting Provider Internal Medicine; Emergency Provider Emergency Medicine; PCP Nurse Practitioner Family; Visit Provider Internal Medicine
DX: J45.901 Unspecified asthma with (acute) exacerbation (principal); K58.9 Irritable bowel syndrome, unspecified; N30.00 Acute cystitis without hematuria; Z79.620 Long term (current) use of immunosuppressive biologic
CPT/HCPCS: 71045; 80048; 81001; 83605; 85025; 87040; 87086; 87088; 87631; 87633; 93005; 94640; 94664; 96374; 99284; 99285; A4216

== ENCOUNTER 2025-02-23 23:32 | Emergency (ER) | payer MEDICAID, SELFPAY ==
[2025-02-23 23:33] VITALS: BP 141/92; PULSE 93; RESP 16; TEMP 36.1; O2SAT 97; BMI 36.2
--- NOTE | 2025-02-24 00:08 | ED.VIS.DENTA ---
HPI History of Present Illness Chief Complaint: Dental Informant: patient Narrative Narrative: Patient 19-year-old female with history of irritable bowel syndrome, Gilbert's syndrome and asthma presenting with worsening right upper dental pain. States is her back molar. She is not sure if her wisdom tooth is coming in. She has been worsening pain over the past few days. Was seen at urgent care 3 days ago and was prescribed amoxicillin. Is not helping. She is minimally taking ibuprofen and Tylenol with no help with her pain. Patient pain radiates to her ear. Denies any difficulty swallowing. States she feels like her right cheek is swollen. Does get some improvement temporarily with ice. Tried to call her dentist today but their system was down and they could make an appointment. She was told to call back tomorrow. She does not smoke. No other complaints or concerns reported at this time. [facility] Medical History UTI (urinary tract infection) Asthmatic bronchitis Colitis Ganglion cyst Asthma Irritable bowel syndrome Gay syndrome Home Medications ?Medication ?Instructions ?Recorded ?Last Taken ?Type albuterol sulfate 90 mcg/actuation 2 puff inhalation Q4H PRN 12/01/24 Unknown History aerosol inhaler cyproheptadine 4 mg tablet 4 mg PO DAILY 12/01/24 12/01/24 History cyproheptadine 4 mg tablet 8 mg PO QHS 12/01/24 11/30/24 History norethindrone acetate 1.5 1 tab PO DAILY 12/01/24 11/30/24 History mg-ethinyl estradiol 30 mcg tablet (Aurovela) ondansetron 4 mg disintegrating 4 mg PO Q8H PRN PRN nausea 12/01/24 11/30/24 History tablet rifaximin 550 mg tablet (Xifaxan) 550 mg PO BID 12/01/24 12/01/24 History rosuvastatin 10 mg tablet 10 mg PO QHS 12/01/24 11/30/24 History cephalexin 500 mg capsule 500 mg PO TID #16 caps 12/02/24 Unknown Rx prednisone 20 mg tablet 40 mg (2 x 20 mg) PO DAILY #15 tabs 12/02/24 Unknown Rx ibuprofen 600 mg tablet 600 mg PO Q6H PRN pain #20 tabs 02/24/25 Unknown Rx Allergy/AdvReac Type Severity Reaction Status Date / Time mesalamine Allergy Intermediate Rash Verified 12/01/24 10:08 Environmental Allergies: Allergy Hives Verified 12/01/24 10:08 Uncoded Social History Smoking Status: Never smoker ROS ROS ED Constitutional Constitutional ED: Denies chills or fever(s) Eyes Eyes: Denies blurry vision ENT ENT ED: Reports ear pain right and other Details: Denies any mild swelling. Right upper dental pain ; Denies rhinorrhea or sore throat Gastrointestinal Gastrointestinal: Denies nausea or vomiting Musculoskeletal Musculoskeletal: Denies arthralgias or myalgias Integumentary Denies rash Neurologic Neurologic: Denies weakness EXAM Physical Exam Const Vital Signs: 02/23/25 23:33 02/24/25 00:45 Temperature 96.9 F L 96.9 F L Temperature Source Axillary Pulse Rate 93 88 Respiratory Rate 16 16 Blood Pressure 141/92 H 123/70 H Blood Pressure Mean 108 87 Pulse Ox 97 97 Oxygen Delivery Method Room Air Positive well nourished and well developed General Appearance ED: well developed and NAD HEENT Reports TM's clear HEENT Narrative: Normal external ears. Normal nose. No significant overlying redness or cellulitic changes to the right cheek area. No trismus present. Uvula is midline. Normal oropharynx. No elevation of the tongue presents. Patient does have scattered dental caries. No significant gingival swelling noted in the right upper gumline. Mild tenderness palpation of the 15 tooth as well as at the gum of the 16 tooth but there is no 16 tooth present. No obvious tooth coming and it is possible it is not past the gumline. No obvious abscess present. Negative for trauma Tympanic Membrane ED: Yes TM's clear Eyes PERRL and EOMs intact bilaterally Neck no lymphadenopathy and supple Neck Narrative: Normal range of motion of the neck Lymph Lymphatic: no lymphadenopathy noted Chest Wall inspection of chest normal Resp normal respiratory effort Cardio regular rate and regular rhythm Neuro oriented x3 Sensorium / Orientation: alert Psych mental status grossly normal Skin no rashes or lesions noted and no wounds MDM MDM MDM Narrative Medical decision making narrative: Patient valuated for worsening/ongoing dental pain. Differential includes dental caries, periapical abscess and possible wisdom tooth that is coming down. Physical exam does not show any more severe features such as overlying cellulitis, trismus or signs of Micheal's angina. Is given IM Toradol and is switched to Augmentin. Given first dose in emergency room. I did review her recent prescription fill history and it shows that she actually had a prescription for Augmentin written by her GI doctor on the 16th of this month. She states she was plan on starting it tomorrow for her bowel issues per the instruction of Dr. Madrigal. Therefore I will not write a prescription for Augmentin as she already has it at home in concert taking it tomorrow. Patient courage to call her dentist tomorrow. Will broaden antibiotic coverage with Augmentin instead of amoxicillin. I do not think she needs further advanced imaging, lab work or transfer at this time. Is given a prescription for Motrin 600 mg to alternate with Tylenol. Given return precautions. Discharged home in stable condition. Discharge Plan Triage Chief Complaint: Dental ED Provider: Priya Morris Dx/Rx/DC Orders Clinical Impression: Dentalgia Instructions: ED Dental Pain Prescriptions: New ibuprofen 600 mg tablet 600 mg PO Q6H PRN (Reason: pain) Qty: 20 0RF No Action albuterol sulfate 90 mcg/actuation HFA aerosol inhaler 2 puff inhalation Q4H PRN norethindrone ac-eth estradiol [Aurovela 1.5/30 (21)] 1.5-30 mg-mcg tablet 1 tab PO DAILY cyproheptadine 4 mg tablet 4 mg PO DAILY Rx Instructions: am ondansetron 4 mg tablet,disintegrating 4 mg PO Q8H PRN PRN (Reason: nausea) rosuvastatin 10 mg tablet 10 mg PO QHS Xifaxan 550 mg tablet 550 mg PO BID cyproheptadine 4 mg tablet 8 mg PO QHS cephalexin 500 mg Capsule 500 mg PO TID Qty: 16 0RF prednisone 20 mg tablet 40 mg PO DAILY Qty: 15 0RF Rx Instructions: 2 tabs daily for 5 days, then 1 tab daily until gone Primary Care Provider: Kerri Cartwright NP Referrals: Kerri Cartwright NP, [employer]NAGER-[employer] [Primary Care Provider, Palliative Medicine] Activity Restrictions/Additional Instructions: Please follow-up with your dentist soon as possible. Call tomorrow to try to get in. Will broaden antibiotic coverage by having you take Augmentin instead of amoxicillin. Take twice a day as previously prescribed. Alternate 600 mg ibuprofen with Tylenol every 4 hours for pain control. Print Language: Namibian Disposition Disposition: Home, Self Care Discharge Date/Time: 02/24/25 00:46
[2025-02-24 00:45] VITALS: BP 123/70; PULSE 88; RESP 16; TEMP 36.1; O2SAT 97
== END 2025-02-24 00:46 | disposition home or self-care (01) ==
PROVIDERS: Emergency Provider Emergency Medicine; PCP Nurse Practitioner Family; Visit Provider Emergency Medicine
DX: K08.89 Other specified disorders of teeth and supporting structures (principal)
CPT/HCPCS: 96372; 99282

== ENCOUNTER 2025-04-19 16:23 | Emergency (ER) | payer MEDICAID, SELFPAY ==
[2025-04-19 16:24] VITALS: BP 124/97; PULSE 94; RESP 18; TEMP 36.1; O2SAT 100; BMI 36.6
--- NOTE | 2025-04-19 16:38 | EKG12_ITS ---
Test Reason : seizures Blood Pressure : */* mmHG Vent. Rate : 76 BPM Atrial Rate : 76 BPM P-R Int : 156 ms QRS Dur : 82 ms QT Int : 390 ms P-R-T Axes : 46 72 32 degrees QTcB Int : 438 ms Normal sinus rhythm with sinus arrhythmia Normal ECG Confirmed by Isaias Alvarez ([id number]), editor map CARIDAD LLANES ([id number]) on 04/22/2025 8:14:42 AM Referred By: Confirmed By: Isaias Alvarez
--- NOTE | 2025-04-19 16:43 | CT_ITS ---
PROCEDURE: CT BRAIN/HEAD WITHOUT CONTRAST 04/19/2025 REASON FOR EXAM: SYNCOPE TECHNIQUE: Procedure Code: CTBR Modality: CT Procedure: BRAIN/HEAD WITHOUT CONTRAST Coronal and Sagittal reconstruction series were provided. One or more dose reduction techniques were used (e.g., Automated exposure control, adjustment of the mA and/or kV according to patient size, use of iterative reconstruction technique. RADIATION DOSE SUMMARY: CTDlvol: 44.99 mGy DLP: 762.36 mGycm COMPARISON: 05/22/2022 FINDINGS: No acute intracranial hemorrhage, extra-axial collection, mass effect or evidence of acute infarct. Ventricles and subarachnoid spaces are normal in size. Orbital contents are unremarkable. Intact skull base and calvarium. Clear visualized paranasal sinuses and mastoid air cells. CT/Brain/Head without Contrast IMPRESSION: Normal head CT. Reading Location: [id number]
--- NOTE | 2025-04-19 16:43 | EX.ED.DYSGE1 ---
HPI History of Present Illness Chief Complaint: Seizure Narrative Narrative: Patient is a 19-year-old female with past medical history of [place] syndrome, IBS, asthma who presents to the emergency department the chief complaint of passing out/concern for seizure. States that this has been going on since April 13 and she states that this happens approximately 10 times a day. She states that these are witnessed and she states that she is not having full body shaking but after she comes to she is shaking but is responsive. States that she has not been urinating herself not losing bowel function and states that she has not bitten her tongue. States that this all started after starting the metronidazole for her IBS. Patient denies any family history of young cardiac or other cardiac issues. [facility] Medical History UTI (urinary tract infection) Asthmatic bronchitis Colitis Ganglion cyst Asthma Irritable bowel syndrome [place] syndrome Home Medications ?Medication ?Instructions ?Recorded ?Last Taken ?Type albuterol sulfate 90 mcg/actuation 2 puff inhalation Q4H PRN 12/01/24 Unknown History aerosol inhaler cyproheptadine 4 mg tablet 4 mg PO DAILY 12/01/24 12/01/24 History cyproheptadine 4 mg tablet 8 mg PO QHS 12/01/24 11/30/24 History norethindrone acetate 1.5 1 tab PO DAILY 12/01/24 11/30/24 History mg-ethinyl estradiol 30 mcg tablet (Aurovela) ondansetron 4 mg disintegrating 4 mg PO Q8H PRN PRN nausea 12/01/24 11/30/24 History tablet rifaximin 550 mg tablet (Xifaxan) 550 mg PO BID 12/01/24 12/01/24 History rosuvastatin 10 mg tablet 10 mg PO QHS 12/01/24 11/30/24 History prednisone 20 mg tablet 40 mg (2 x 20 mg) PO DAILY #15 tabs 12/02/24 Unknown Rx ibuprofen 600 mg tablet 600 mg PO Q6H PRN pain #20 tabs 02/24/25 Unknown Rx metronidazole 500 mg/5 mL oral 250 mg PO TID 04/19/25 Unknown History suspension (Likmez) Allergy/AdvReac Type Severity Reaction Status Date / Time mesalamine Allergy Intermediate Rash Verified 04/19/25 16:25 Environmental Allergies: Allergy Hives Verified 04/19/25 16:25 Uncoded Family History no significant family his Social History Smoking Status: Never smoker ROS ROS ED ROS Narrative Constitutional: Denies any fevers, chills, headaches Eyes: Denies double vision Cardiovascular: Denies chest pain denies palpitations Respiratory: Denies coughing wheezing shortness of breath Abdomen: Denies any abdominal pain nausea vomit diarrhea : Denies urinary symptoms Neurological: Denies any numbness, weakness, tingling Musculoskeletal: Denies back pain Skin: Denies any rashes or lesions EXAM Physical Exam Narrative Exam Narrative: General: Patient lying in bed resting comfortably not appear to be acute distress Head: Atraumatic, normocephalic Eyes: PERRL bilaterally, EOMI bilaterally, no conjunctival injection noted Neck: Noted soft, supple, trachea midline Cardiovascular: Regular rate and rhythm Respiratory: Clear to auscultation bilaterally Abdomen: Soft, nondistended, nontender to palpation Extremities: +5/5 strength noted in the bilateral upper and lower extremities Neurological: Patient is following commands that she was at [facility] year is 2024 sensation grossly intact Skin: Warm, dry, intact no rashes or lesions noted Const Vital Signs: 04/19/25 16:24 04/19/25 16:44 04/19/25 18:23 Temperature 96.9 F L Temperature Source Temporal Pulse Rate 94 74 Pulse Rate [Lying] 84 Pulse Rate [Sitting (for 1 minute prior to obtaining)] 78 Pulse Rate [Standing (for 1 minute prior to obtaining)] 99 Respiratory Rate 18 17 Blood Pressure 124/97 H 107/77 Blood Pressure [Lying] 123/74 H Blood Pressure [Sitting (for 1 minute prior to obtaining)] 129/85 H Blood Pressure [Standing (for 1 minute prior to obtaining)] 117/88 H Blood Pressure Mean 106 87 Blood Pressure Mean [Lying] 90 Blood Pressure Mean [Sitting (for 1 minute prior to obtaining)] 99 Blood Pressure Mean [Standing (for 1 minute prior to obtaining)] 97 Pulse Ox 100 99 Oxygen Delivery Method Room Air Room Air MDM MDM MDM Narrative Medical decision making narrative: Patient is a 19-year-old female who presented to the emergency department with a chief complaint of syncope or near syncope. On the differential diagnose includes but not limited to syncope, electrolyte malady, cardiac arrhythmia, hyperthyroidism, anxiety, seizure although have low suspicion for this based on her clinical history. Once the workup is obtained reviewed she will be reevaluated. Orthostatic vital signs will be obtained and she will be given IV fluids. Orthostatic vital signs negative. Of note nursing staff notified me that she had an episode of this while in the room and they were able to sternal rub her and she immediately responded and stopped this episode. Patient's CBC reviewed and showed a white count of 11,000 this is stable compared to previous blood draws, hemoglobin was 14.6, plate count normal at 267. Patient sodium was 136, potassium normal 3.8, creatinine 0.88. Patient's AST and ALT are 120 and 109 respectively this is nonspecific she does not have any abdominal pain. Patient's TSH was elevated to 38 free T4 was noted be low at 0.60 and T3 was noted be 2.3 test was negative urinalysis reviewed and showed 100 leukocyte esterase 5-10 white cells with 1+ bacteria however she is not having urinary symptoms therefore will hold off on treating and just send this for culture. Patient CT head brain without contrast reviewed and showed no acute findings. Patient is EKG reviewed showed sinus rhythm rate of 76 bpm MO interval 156. Patient ambulated well here in the emergency department no tachycardia no hypoxia. Endocrinology is not on-call here to discuss her thyroid therefore with her abnormal labs did advised her to follow-up on this with her primary care physician in the outpatient setting. She will be given a Holter monitor here in the emergency department. She was advised that she is to not drive or partake in any high risk activities until this is further evaluated. She is agreeable with this plan as well as family member at bedside all question concerns answered at bedside she was discharged home in stable condition Lab Data Labs: Laboratory Results - last 24 hr 04/19/25 04/19/25 16:34 17:43 WBC 11.1 H RBC 4.75 Hgb 14.6 Hct 43.7 MCV 92.0 MCH 30.7 MCHC 33.4 RDW Std Deviation 40.4 RDW Coeff of Bibiana 11.9 Plt Count 267 MPV 10.8 Immature Gran % (Auto) 0.300 Neut % (Auto) 49.1 Lymph % (Auto) 41.9 H Price % (Auto) 6.5 Eos % (Auto) 1.6 Baso % (Auto) 0.6 Absolute Neuts (auto) 5.4 Absolute Lymphs (auto) 4.64 H Nucleated RBC % 0 Sodium 136 Potassium 3.8 Chloride 102 Carbon Dioxide 21.9 Anion Gap 12 BUN 8 Creatinine 0.88 Estim Creat Clear Calc 118.32 Est GFR (MDRD) Non-Af 95 BUN/Creatinine Ratio 9.0 L Glucose 77 Calcium 10.1 Total Bilirubin 1.07 AST 120 H ALT 109 H Alkaline Phosphatase 93 Total Protein 8.5 H Albumin 4.7 Globulin 3.7 Albumin/Globulin Ratio 1.3 Lipase 20 TSH 38.200 H Free T4 0.60 L Free T3 pg/dL 2.3 Serum , Qual NEGATIVE Urine Color Straw Urine Clarity Sl. Cloudy Urine pH 6.5 Ur Specific Graham 1.010 Urine Protein Negative Urine Glucose (UA) Normal Urine Ketones Negative Urine Occult Blood Negative Urine Nitrite Negative Urine Bilirubin Negative Urine Urobilinogen Normal Ur Leukocyte Esterase 100 H Urine RBC 0-5 SEEN Urine WBC 5-10 SEEN Ur Squamous Epith Cells 10-25 SEEN Urine Bacteria 1+ Urine Mucus 0 SEEN Urine Test Cancelled Radiography Diagnostic Testing: Clinical Impression(s) from Imaging Studies Brain CT 04/19/25 16:43 IMPRESSION: Normal head CT. Reading Location: [id number] Discharge Plan Triage Chief Complaint: Seizure Other Complaint: Back ED Provider: Ricky Carrington Dx/Rx/DC Orders Clinical Impression: Near syncope, History of IBS, History of asthma Prescriptions: No Action ibuprofen 600 mg tablet 600 mg PO Q6H PRN (Reason: pain) Qty: 20 0RF Likmez 500 mg/5 mL suspension 250 mg PO TID albuterol sulfate 90 mcg/actuation HFA aerosol inhaler 2 puff inhalation Q4H PRN norethindrone ac-eth estradiol [Aurovela 1.530 (21)] 1.5-30 mg-mcg tablet 1 tab PO DAILY cyproheptadine 4 mg tablet 4 mg PO DAILY Rx Instructions: am ondansetron 4 mg tablet,disintegrating 4 mg PO Q8H PRN PRN (Reason: nausea) rosuvastatin 10 mg tablet 10 mg PO QHS Xifaxan 550 mg tablet 550 mg PO BID cyproheptadine 4 mg tablet 8 mg PO QHS prednisone 20 mg tablet 40 mg PO DAILY Qty: 15 0RF Rx Instructions: 2 tabs daily for 5 days, then 1 tab daily until gone Primary Care Provider: Kerri Cartwright NP Referrals: Kerri Cartwright NP, [facility] [Primary Care Provider, Palliative Medicine] Activity Restrictions/Additional Instructions: Follow-up with your doctors in outpatient setting. Return with worsening symptoms or concerns. Follow-up with your doctor on your thyroid your labs will need repeated for this. Wear Holter monitor as prescribed. Do not partake in any high risk activities and do not drive until this is further investigated. Print Language: French Disposition Disposition: Home, Self Care
[2025-04-19 16:44] VITALS: BP 117/88; BP 123/74; BP 129/85; PULSE 78; PULSE 84; PULSE 99
[2025-04-19] MEDS: 0.9% Normal Saline (1000mL) 1,000 ML 999 ML IV (16:48)
[2025-04-19 16:51] LABS: Hematocrit 43.7 % (37-47); Hemoglobin 14.6 g/dL (12.0-15.0); Immature Granulocytes Count 0.030 X10^3/uL (0.0-0.0); Mean Corp Hgb Conc 33.4 g/dL (32-36); Mean Corpuscular Volume 92.0 fL (81-99); Mean Platelet Vol. 10.8 fl (6.2-12.0); NRBC Flagged by Analyzer 0 % (0-5); Platelet Count 267 K/mm3 (150-450); RBC Distribution Width CV 11.9 % (11.6-14.6); RBC Distribution Width SD 40.4 fl (35.1-43.9); Red Blood Count 4.75 M/mm3 (4.2-5.4); White Blood Count 11.1 K/mm3 (4.4-11.0)
[2025-04-19 17:18] LABS: AST(SGOT) 120 U/L (<=31); Alanine Aminotransfer ALT/SGPT 109 U/L (<=34); Albumin, Serum 4.7 g/dL (3.5-5.0); Alkaline Phosphatase 93 U/L (35-104); Anion Gap 12 (7-18); BUN 8 mg/dL (4-19); BUN/Creat Ratio 9.0 RATIO (10-20); Calcium,Total 10.1 mg/dL (7.6-11.0); Carbon Dioxide 21.9 mmol/L (20.0-29.0); Chloride 102 mmol/L (96-106); Estimated Creatinine Clearance 118.32 ml/min (50-250); Free T3 2.3 pg/mL (2.18-3.98); Globulin 3.7 g/dL (2.2-4.2); Glucose 77 mg/dL (70-99); Lipase 20 U/L (13-75); Potassium 3.8 mmol/L (3.5-5.1)
[2025-04-19 17:37] LABS: Internal QC Validated? YES +Cl - CLEAR BKGD; Pregnancy, Serum, hCG Quali. NEGATIVE Negative
[2025-04-19 17:47] LABS: Mucous, Urine 0 SEEN /hpf (<or=2+)
[2025-04-19 18:03] LABS: Color, Urine Straw (Yellow); Glucose, Dipstick Normal (Normal); Ketone-Dipstick Negative (Negative); Leukocyte Esterase-Dipstick 100 /ul (Negative); Nitrite-Dipstick Negative (Negative); Occult Blood-Urine Negative /ul (Negative); Protein-Dipstick Negative (Negative); Specific Gravity, Urine 1.010 (1.002-1.030); Urine Bilirubin Dipstick Negative (Negative)
[2025-04-19 18:23] VITALS: BP 107/77; PULSE 74; RESP 17; O2SAT 99
[2025-04-19 18:47] LABS: Squamous Epithelial Cells - UA 10-25 SEEN /hpf (5-10)
[2025-04-19 18:49] LABS: Red Blood Cells-Urine 0-5 SEEN /hpf (0-5)
[2025-04-19 18:53] VITALS: O2SAT 97
[2025-04-19 19:26] VITALS: BP 125/74; PULSE 76; RESP 16; TEMP 36.6; O2SAT 99
== END 2025-04-19 20:00 | disposition home or self-care (01) ==
PROVIDERS: Emergency Provider Emergency Medicine; PCP Nurse Practitioner Family; Visit Provider Emergency Medicine
DX: R55 Syncope and collapse (principal); J45.909 Unspecified asthma, uncomplicated; Z79.51 Long term (current) use of inhaled steroids
CPT/HCPCS: 70450; 80053; 81001; 83690; 84439; 84443; 84481; 84703; 85025; 93005; 96360; 99285